=== PATIENT | male | born 1960 | race Caucasian/White ===

== ENCOUNTER → 2019-10-28 | Outpatient (CLI) | payer SELFPAY ==
--- NOTE | 2019-10-28 | TOBX_PTH ---
PATIENT: NAYA PAUL LOC: [facility] U#:[id number] AGE/SX: 58/M ROOM: RE10/28/[address]: Dr. Jose Tena DDS : 1960 BED: DIS: 10/28/2019 SPEC #: [id number] RECD: 10/28/19 10:05 STATUS: NOHEMI RETristian #: [id number] DIANNE: 10/28/19 00:[address]: Jose Tena DEPT: SURGICAL PATHOLOGY RECD BY: Viktor Lopez ENTERED: 10/28/19 13:33 SP TYPE: TONGUE BX OTHR DR: Dr. Getachew Beaulieu DO Tissues: Tongue, NOS Procedures: Surgery Specimen Level IV HEADER OPERATION: Anterior tongue biopsy PRE-OP DIAGNOSIS: Probable fibroma TISSUE SUBMITTED: Tongue biopsy MICROSCOPIC DIAGNOSIS Tongue, biopsy: Consistent with fibroma. AM:sherman 10/29/19 COMMENT Case has been reviewed in consultation with Dr. Almaraz who concurs with the above diagnosis. IDC:SJ MICROSCOPIC DESCRIPTION Slides are reviewed. GROSS DESCRIPTION Received in fixative is one container labeled with the patient's name and designated tongue. The specimen consists of one irregular fragment of light vick soft tissue that measures 0.3 x 0.3 x 0.1 cm. The specimen is totally submitted in one cassette. / AM:rg 10/28/19 TC:3 CPT: 76671
== END | disposition home or self-care (01) ==
LOC: LABSPEC 11:56
PROVIDERS: PCP Family Medicine; Visit Provider Dentist Oral and Maxillofacial Surgery
DX: K14.9 Disease of tongue, unspecified (principal)
CPT/HCPCS: 88305

== ENCOUNTER → 2019-12-10 07:25 | Outpatient (CLI) | payer SELFPAY ==
--- NOTE | 2019-12-10 07:30 | CT_ITS ---
STUDY: CT CHEST WITHOUT CONTRAST REASON FOR EXAM: Male, 58 years old. CALCIUM SCORING, HYPERLIPIDEMIA RADIATION DOSAGE (If Supplied By Facility): CTDIvol = ( 12.19 ) mGy, DLP = ( 219.42 ) mGycm TECHNIQUE: Transaxial imaging was performed without the administration of intravenous contrast material. Overread examination. Individualized dose optimization techniques were used for this CT. COMPARISON: None. FINDINGS: The lungs are normal. There is no demonstrated pleural abnormality. There are calcifications of the coronary arteries. Normal mediastinum. Normal hilar regions. Normal unenhanced pulmonary arteries. There is minimal atherosclerotic plaque at the level of the aortic arch. Normal osseous structures. Small hiatal hernia. CT/Limited Chest CT w/CCTA IMPRESSION: Coronary artery calcification. The lungs are clear.. Electronically Signed: Lee Salas, at 8:50 EDT , Service support ,
[2019-12-10 07:41] VITALS: BP 140/87; PULSE 53; RESP 14; O2SAT 99; BMI 25.7
--- NOTE | 2019-12-15 10:12 | CA.SCORE ---
Calcium Scoring Date of Study:: 12/10/19 Coronary Calcium Scoring: High-resolution Computed Tomographic imaging of the chest was performed on [ ], with particular attention paid to the coronary arteries. Images from the examination were analyzed for the presence and extent of coronary artery calcification , using coronary calcium quantification software. The patient tolerated the procedure well and there were no complications. The results of the coronary calcification analysis are provided below. - Findings Left Main (LM): 0 Left Anterior Descending (LAD): 0 Left Circumflex (LCX): 0 Right Coronary Artery (RCA): 0 Total Agatston Score: 0 Calcium Scoring Interpretation: 0 No identifiable atherosclerotic plaque. Very low cardiovascular disease risk. <5% chance of presence coronary artery disease A Negative Examination Conclusion: No identifiable atherosclerotic plaque. Very low cardiovascular disease risk. <5% chance of presence coronary artery disease
== END ==
PROVIDERS: PCP Family Medicine; Visit Provider Internal Medicine
DX: E78.5 Hyperlipidemia, unspecified (principal)
CPT/HCPCS: 75571; 76380

== ENCOUNTER → 2020-01-07 06:15 | Outpatient (CLI) | payer SELFPAY ==
[2019-12-10 07:41] VITALS: BMI 25.7
--- NOTE | 2020-01-08 15:36 | STRESSREP ---
Stress Test Report Date: 01/07/2020 Procedure: Exercise tolerance test/imaging study Indications: Chest pain Consent: Per the patient Procedure: The patient exercised on a Nahid protocol for 12 minutes and 46 seconds achieving a peak heart rate of 155 bpm (95% predicted maximal heart rate) with a peak blood pressure 180/90 mmHg and a peak MET capacity of 14.8 METs. The baseline ECG demonstrated sinus bradycardia. The peak exercise ECG demonstrated sinus tachycardia with upsloping ST depressions in the inferior and lateral leads. No significant ischemic ST-T changes. Occasional PVCs. EKG during recovery revealed no significant ischemic changes [There were no cardiac dysrhythmias pretest, during exercise, or recovery]. The functional capacity was considered excellent for age. There was [no complaint of chest discomfort during exercise or recovery]. The examination was discontinued secondary to dyspnea. Impression: 1. Technically adequate (percent predicted maximal heart rate greater than 85%) exercise tolerance test 2. Stress test is negative for exercise-induced EKG changes of ischemia 3. The test test is negative for exercise-induced chest pain 4. Functional capacity is excellent for age 5. Nuclear images pending Myocardial perfusion imaging study: Technique: The patient was injected with 14.2 mCi of technetium 99m Cardiolite and subsequently rest SPECT Cardiolite nuclear imaging was obtained in the horizontal long, vertical long, and short axis views. The patient exercised on a Nahid protocol. Please see above for details. The patient was injected with 43.9 mCi of technetium 99m Cardiolite and subsequently stress SPECT Cardiolite nuclear imaging was obtained in the horizontal long, vertical long, and short axis views. A gated Cardiolite study at peak stress was obtained. Interpretation: Rest and stress SPECT Cardiolite nuclear imaging status post realignment, normalization, and attenuation correction, demonstrates normal myocardial radioisotope uptake. The gated Cardiolite study demonstrates no significant regional wall motion abnormalities. The reported LVEF is 65%. Impression: 1. There is no evidence of significant ischemia or infarction. 2. The gated Cardiolite study reports an LVEF of 65%. This note was generated with [employer] software. It may contain incorrect words, spelling, and punctuation that were not noted in checking the note before signing.
== END ==
PROVIDERS: PCP Internal Medicine; Referring Provider Internal Medicine; Visit Provider Internal Medicine
DX: R07.9 Chest pain, unspecified (principal)
CPT/HCPCS: 78452; 93017; A9500; A4216

== ENCOUNTER 2020-05-21 18:36 | Emergency (ER) | payer OTHER, SELFPAY ==
[2020-05-21 18:37] VITALS: BP 153/73; PULSE 62; RESP 18; TEMP 36.5; O2SAT 97; BMI 28.2
--- NOTE | 2020-05-21 18:40 | EKG12_ITS ---
Test Reason : GENERAL ILLNESS Blood Pressure : / mmHG Vent. Rate : 064 BPM Atrial Rate : 064 BPM P-R Int : 238 ms QRS Dur : 086 ms QT Int : 378 ms P-R-T Axes : 047 016 042 degrees QTc Int : 389 ms Sinus rhythm with 1st degree A-V block Otherwise normal ECG Confirmed by MARI RESENDIZ, SHERI ([id number]), proposal editor ALEX PRESTON ([id number]) on 05/25/2020 7:47:44 AM Referred By: KENDAL Confirmed By:SHERI GUERRA MD
--- NOTE | 2020-05-21 18:53 | RAD_ITS ---
EXAM: XR CHEST, 1 VIEW CLINICAL INDICATION: Possible electrocution, loss of memory TECHNIQUE: Frontal view of the chest. This report was created using [employer] report generation technology. COMPARISON: None. FINDINGS: LUNGS AND PLEURAL SPACES: Unremarkable. No consolidation or edema. No pneumothorax. No effusion. HEART: Unremarkable. Cardiac silhouette not enlarged. MEDIASTINUM: Central airways and mediastinal contour are unremarkable. BONES/JOINTS: Operative changes of the right humeral head. Old left rib fractures. SOFT TISSUES: Unremarkable. VASCULATURE: Tortuosity of the thoracic aorta. RAD/Chest 1 View (Portable) IMPRESSION: No acute findings in the chest. Electronically Signed: Mannie Duarte MD (Brooks) at 19:26 EDT , Service support ,
[2020-05-21] MEDS: 0.9% Normal Saline 1,000 ML 999 ML IV (19:07)
[2020-05-21 19:16] LABS: Absolute Lymphocyte Count 0.69 X10^3/uL (0.83-4.51); Absolute Neutrophil Count 5.8 X10^3/uL (2.0-7.7); Basophil# 0.03 X10^3/uL; Basophil% 0.4 % (0-1); Eosinophil# 0.15 X10^3/uL; Hematocrit 43.9 % (40-54); Hemoglobin 14.9 g/dL (13.0-16.5); Lymphocyte # 0.69 X10^3/ul (4.0); Lymphocyte % 9.3 % (19-41); Mean Corp Hgb Conc 33.9 g/dL (32-36); Mean Corpuscular Hgb 31.2 pg (27.0-32.0); Mean Platelet Vol. 9.3 fl (6.2-12.0); Monocyte# 0.71 X10^3/uL; Monocyte% 9.6 % (0-10); NRBC Flagged by Analyzer 0 % (0-5); Neutrophil # 5.84 X10^3/uL (2.7-7.7); Neutrophil % 78.6 % (47-70); Platelet Count 158 K/mm3 (150-450); RBC Distribution Width CV 11.9 % (11.6-14.6); RBC Distribution Width SD 39.8 fl (35.1-43.9); Red Blood Count 4.77 M/mm3 (4.6-6.2); White Blood Count 7.4 K/mm3 (4.4-11.0)
--- NOTE | 2020-05-21 19:22 | ED.VIS.GEN ---
History of Present Illness Chief Complaint: General Illness Informant: Patient Onset: Today Maximum Severity: Mild Narrative: The patient presents complaining that he was basically trying to open up nonmotorized gait when he felt as if a force pushed him down to the ground he was on the ground for a few minutes he believes he may been exposed to electrical current that is part of the fence that the gait is attached to but the gait itself is not electrified he was on the ground for a few minutes, this occurred earlier in the day about 7 hours ago his found out recently and she wanted him to be seen he had no LOC no incontinence no head neck chest or abdominal pain no fever cough he has no history of NM PE or DVT he has no headache he has an area to the right wrist that is slightly contused and he wonders if this is possibly the contact point with some type of electrical current Past Medical History - Allergies and Home Meds Allergies/Adverse Reactions: Allergies No Known Allergies Allergy (Verified 05/21/20 18:40) Primary Care Physician: Monique Shearer MD [Primary Care Provider] - Past Medical History: None Smoking Status: Never smoker Review of Systems General: Denies: Chills, Fever, Sweats Eyes: Denies: Visual changes - bilaterally, Diplopia ENT: Denies: Rhinorrhea, Sore throat Cardiovascular: Denies: Chest pain, Palpitations Respiratory: Denies: Dyspnea, Cough, Dyspnea on exertion Gastrointestinal: Denies: Abdominal pain, Nausea, Vomiting, Diarrhea, Melena, Hematochezia Genitourinary: Denies: Dysuria, Hematuria, Frequency Musculoskeletal: Denies: Back pain, Extremity Pain Skin: Denies: Rash, Wounds Neurological: Denies: Headache, Weakness, Numbness Physical Exam Vital Signs/Narrative: Vital Signs Temp Pulse Resp BP Pulse Ox 05/21/20 18:37 97.7 F L 62 18 153/73 H 97 General: Well nourished, Well developed, No Acute Distress Head: Normocephalic, Atraumatic Eyes: Perrl, EOMI ENT: Moist mucous membranes, No rhinorrhea Neck: Supple, Nontender Cardiovascular: Regular rate, Regular rhythm, No murmurs Respiratory: No distress, CTA bilaterally, Chest nontender Abdomen: Soft, Nontender, Nondistended, Normal bowel sounds Back: Nontender, Normal Inspection Extremities: Nontender, No edema Skin: Normal color, No rash Neurological: Alert, Oriented x3, Cranial nerves II-XII grossly intact, Normal Strength, Normal Sensation Psychological: Normal affect, Normal Mood Diagnostic/Tx/Re-eval - Medical Decision Making The patient's physical exam and neurologic exam unremarkable NIH 0 his EKG shows a sinus rhythm rate 64 no acute injury patterns appreciated given his complaints ED screening evaluation ED screening evaluation generally unremarkable his CPKs about 400 all of his other studies including chest x-ray head CT negative he is received IV fluids here I had a long conversation with him I explained to him that the exact etiology of this force that pushed him to the ground is remains unclear it certainly could be related to electrical exposure but there is no signs of any life-threatening causes relationship or outcome from that exposure. We discussed inpatient versus outpatient management he was stayed in the emergency room on the monitor for extended period time with no symptoms he insists he feels fine he understands the concept of an occult life-threatening condition contributing to this syndrome does not wish to be admitted as tomorrow is Easter he will follow-up with his outpatient providers and he will double check the electrical issues on his property and the gait Home stable Impression final possible electrical exposure electrocution, possible syncope ED Disposition - Plan for ED Patient: Diagnosis: Syncope, Injury due to electrical exposure Instructions: ED Electrical Injury, ED Fainting, Uncertain Cause Referrals: Monique Shearer MD [Primary Care Provider] -
[2020-05-21 19:41] LABS: Anion Gap 5 (5-15); BUN 27 mg/dL (7-18); Calcium,Total 8.7 mg/dL (8.5-10.1); Chloride 107 mmol/L (98-107); Creatinine, Serum 1.23 mg/dL (0.70-1.30); EST Glomerular Filtration Rate 64 mL/min (>60); Est Glom Filt Rate - Afr Amer 78 mL/min (>60); Estimated Creatinine Clearance 73.98 ml/min; Glucose 71 mg/dL (74-106); Potassium 3.7 mmol/L (3.5-5.1); Sodium Level 140 mmol/L (136-145)
--- NOTE | 2020-05-21 19:43 | CT_ITS ---
STUDY: CT BRAIN WITHOUT CONTRAST REASON FOR EXAM: Male, 59 years old. Syncope possibly exposed to electric shock RADIATION DOSAGE (If Supplied By Facility): CTDIvol = ( 44.99 ) mGy, DLP = ( 829.85 ) mGycm TECHNIQUE: Transaxial CT imaging of the brain was performed without administration of intravenous contrast material. Individualized dose optimization techniques were used for this CT. COMPARISON: No relevant priors. FINDINGS: Normal soft tissue structures. Normal calvarium. Normal size ventricles and extra-axial spaces for the patient''s age. Normal white matter tracts of the cerebral hemispheres. Normal basal ganglia and thalami. Normal brainstem. Normal cerebellum. There is no intracranial hemorrhage. There are no findings of an acute ischemic infarction. Mild mucosal thickening of the left sphenoid sinus CT/Brain/Head without Contrast IMPRESSION: Normal unenhanced CT scan of the brain. Mild left sphenoid sinus disease likely chronic Electronically Signed: Giorgi Paredes MD at 20:54 EDT , Service support ,
[2020-05-21 19:45] LABS: BNP,B-Type NATRIURETIC PEPTIDE 36.1 pg/mL (0-100)
[2020-05-21 19:47] LABS: CPK Total, Creatine Kinase 394 U/L (39-308)
[2020-05-21 20:31] LABS: Bacteria 0 SEEN /hpf (None Seen); Mucous, Urine 0 SEEN /hpf (<or=2+); Red Blood Cells-Urine 0 SEEN /hpf (0-5); Squamous Epithelial Cells - UA 0 SEEN /hpf (0-5)
[2020-05-21 20:37] VITALS: BP 126/82; PULSE 53; RESP 18; O2SAT 98
[2020-05-21 20:49] LABS: Color, Urine Yellow (Yellow); Glucose, Dipstick Normal (Normal); Ketone-Dipstick 50 mg/dl (Negative); Leukocyte Esterase-Dipstick Negative /ul (Negative); Nitrite-Dipstick Negative (Negative); Occult Blood-Urine Negative /ul (Negative); Protein-Dipstick Negative (Negative); Urine Bilirubin Dipstick Negative (Negative); Urine Clarity Clear (Clear); Urine Urobilinogen Normal (Normal); Urine pH 6.5 (5.0 - 8.0)
[2020-05-21 21:28] LABS: White Blood Cells 0-5 SEEN /hpf (0-5)
== END 2020-05-21 21:29 | disposition home or self-care (01) ==
LOC: ED 19:14
PROVIDERS: Emergency Provider Emergency Medicine; PCP Internal Medicine
DX: R55 Syncope and collapse (principal); S60.211A Contusion of right wrist, initial encounter; W86.8XXA Exposure to other electric current, initial encounter; Y93.9 Activity, unspecified; Y92.9 Unspecified place or not applicable
CPT/HCPCS: 70450; 71045; 80048; 81001; 82550; 83880; 84484; 85025; 93005; 96360; 96361; 99284; J7030; A4216

== ENCOUNTER → 2022-06-04 | Outpatient (CLI) | payer SELFPAY ==
--- NOTE | 2022-06-04 09:19 | EKG12_ITS ---
Test Reason : PRE-OP Blood Pressure : / mmHG Vent. Rate : 051 BPM Atrial Rate : 051 BPM P-R Int : 260 ms QRS Dur : 078 ms QT Int : 398 ms P-R-T Axes : 047 015 038 degrees QTc Int : 366 ms Sinus bradycardia with 1st degree A-V block Otherwise normal ECG Confirmed by BRADEN THAYER ([id number]), tape editor VIKTORIA JONES ([id number]) on 06/05/2022 7:07:15 AM Referred By: JANA Confirmed By:BRADEN THAYER
[2022-06-04 09:54] LABS: Absolute Lymphocyte Count 0.55 X10^3/uL (0.83-4.51); Absolute Neutrophil Count 2.9 X10^3/uL (2.0-7.7); Basophil# 0.03 X10^3/uL; Basophil% 0.8 % (0-1); Eosinophil# 0.08 X10^3/uL; Hematocrit 43.5 % (40-54); Hemoglobin 14.9 g/dL (13.0-16.5); Lymphocyte # 0.55 X10^3/ul (0.83-4.51); Lymphocyte % 13.9 % (19-41); Mean Corp Hgb Conc 34.3 g/dL (32-36); Mean Corpuscular Hgb 31.6 pg (27.0-32.0); Mean Corpuscular Volume 92.4 fL (80-94); Mean Platelet Vol. 9.3 fl (6.2-12.0); Monocyte% 10.1 % (0-10); NRBC Flagged by Analyzer 0 % (0-5); Neutrophil % 72.9 % (47-70); POSITIVE DIFFERENTIAL YES; Platelet Count 199 K/mm3 (150-450); RBC Distribution Width CV 11.9 % (11.6-14.6); RBC Distribution Width SD 40.7 fl (35.1-43.9); Red Blood Count 4.71 M/mm3 (4.6-6.2)
[2022-06-04 10:04] LABS: Differential Indicated SCAN CRITERIA MET
[2022-06-04 10:12] LABS: Albumin, Serum 3.9 g/dL (3.2-5.0); Anion Gap 4 (5-15); BUN 22 mg/dL (7-18); BUN/Creat Ratio 21.6 RATIO (10-20); Chloride 106 mmol/L (98-107); Creatinine, Serum 1.02 mg/dL (0.70-1.30); EST Glomerular Filtration Rate 79 mL/min (>60); Est Glom Filt Rate - Afr Amer 96 mL/min (>60); Glucose 101 mg/dL (74-106); Potassium 3.9 mmol/L (3.5-5.1); Sodium Level 140 mmol/L (136-145)
[2022-06-04 10:51] LABS: Differential Comment SCANNED
[2022-06-07 09:40] LABS: Pathologist Review Reviewed
== END | disposition home or self-care (01) ==
PROVIDERS: PCP Internal Medicine; Visit Provider Specialist
DX: Z01.810 Encounter for preprocedural cardiovascular examination (principal); M16.12 Unilateral primary osteoarthritis, left hip; M25.652 Stiffness of left hip, not elsewhere classified
CPT/HCPCS: 36415; 80048; 82040; 85025; 93005

== ENCOUNTER 2023-12-10 10:30 | Outpatient (RCR) | payer SELFPAY ==
--- NOTE | 2023-11-12 11:35 | HP.PTEVAL ---
Patient's Visit Information Visit Information Visit Information: NAYA PAUL is a 62 year old M referred to Physical Therapy by Deena Albert PA-C with a diagnosis of L3 Hemilaminectomy, L4-L5 laminectomy and fusion. DOS: 10/15/23. Date of Evaluation: 11/12/23 Physical Therapist: Dequan Romo DPT Visit Plan Frequency: 2-3x /Week Duration: 6 Weeks Plan: Check superior aspect of incision. Pt. was to follow back up with physician about it. 1) HS and hip flexor stretching, with out nerve irritation. 2) work on getting posture to fully upright. 3) progressive walking program 4) LE strengthening, neutral spine core stability. May use ice for pain control. Once incision is fully closed you can add in IASTIM to lumbar erector spinae and paraspinals. Subjective Subjective: Pt. is here today for his initial evaluation with diagnosis of L3 Hemilaminectomy, L4-L5 laminectomy and fusion. DOS: 10/15/23. Pt. reports prior to surgery he was having a lot pain and was barely able to walk secondary to his pain. He is doing much better, but is still having some issues. He is still having some trouble sleeping. No N/T in his LE, but still gets some pain in his R anterior hip with increased trunk extension. 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 He did try and go in a little bit. He reports increased ability to stand more upright and walk more over the past few days. Pt. is hopeful to reduce symptoms and get back to all work and recreational activities without limitations. Pain Lumbar spine: Pain Intensity (Out of 10): 3 Pain Intensity Range: 1 and 5 Objective Objective: POSTURE: Pt. has flexed posture in stance. Pt. increased without AD. He is able to improve with VCing, but does have increased pain prior to getting full upright posture. PALPATION: Pt. has healing incision. His bandage has been removed. Lower incision looks great. At his superior part of his incision he has an area that is raised, red. This area has me a bit concerned. I would like him to have his surgeon to take a look at this. I too a picture of it on his phone to send to him. NEURO: Pt. has normal sensation and DTR of bLEs. Pt. is able to rise on heels and toes without issues. ROM: LUMBAR SPINE: flexion mod loss increase NW, ext max loss increase NW, SB mod loss bilat increase NW, rotation max loss bilat increase NW. Tight HS and hip flexors bilaterally. MMT: PT. has good strength throuhgout BLEs. no myotomal weakness noted. GAIT: PT. ambulates with FWW with flexed posture. Pt. reports increased pain with increased erect posture. Balance/Special Test Scores Oswestry Low Back Score: 30 Goals Goal 1:: LTG: Pt. to be I with HEP. Goal Time Frame: 6-8 Weeks Goal 2:: STG: Pt. to sleep throughout the night without increase in low back pain. Goal Time Frame: 2-4 Weeks Goal 3:: STG: Pt. to be able to stand with good upright posture without increase in lumbar spine and R LE pain. Goal Time Frame: 2-4 Weeks Goal 4:: LTG: Pt. to ambulate with good gait pattern with use of FWW without increase in lumbar spine or RLE pain. Goal Time Frame: 4-6 Weeks Goal 5:: LTG: Pt. to have good core stability allowing for decreased pain with all functional mobility. Goal Time Frame: 4-6 Weeks Rehabilitation Potential Physical Therapy Diagnosis: Pt. has signs and symptoms consistent with L3 Hemilaminectomy, L4-L5 laminectomy and fusion. DOS: 10/15/23. Pt. has marked decreased ROM, increased pain, difficulty with walking and decreased activity. He would benefit from PT to address the above limitations progressing back to all work and recreational activities without issues. Rehabilitation Potential: Good Anticipated Interventions Patient/Client Instruction: Educate patient on: Condition, Plan of Care, Risk Factors and Benefits of Fitness Program For the Purpose of:: To improve health and function, To foster healthy habits, To improve decision making, To facilitate caregiver knowledge, To improve self management, To prevent re-injury and To improve ability to perform tasks related to life management Therapeutic Exercise to Include: Strength training, Power training, Balance training, Coordination, Body mechanics, Postural training, Flexibilty training, Gait and locomotor training, Active ROM, Dynamic Lumbar Stabilization and Osvaldo Exercises For the Purpose of:: To decrease pain, To increase ROM, To improve nutrient delivery to tissue, To increase oxygenation perfusion, To improve muscle performance and motor function, To improve ability to perform ADL's, To increase tolerance to activity/condition/position, To improve gait and locomotor functions, To improve health of tissue and To decrease soft tissue restriction Manual Therapy Techniques to Include: Soft tissue mobilization Comment: IASTIM For the Purpose of:: To decrease pain, To increase ROM, To improve nutrient delivery to tissue, To improve muscle performance and motor function, To improve health of tissue and To decrease soft tissue restriction Cryotherapy (ice pack, ice massage): Yes For the Purpose of:: To decrease pain, To decrease swelling/inflammation and To increase ROM Text: Thank you for the opportunity to evaluate your patient. For Medicare and Medicare HMO plans, please review the plan of care and approve it. It will need to be FAXED BACK to us at [phone] for Medicare purposes. For Medicare only, by signing this I certify the plan of care. Please let me know if there are questions or concerns regarding this plan of care. Physician Signature: Date:
== END 2023-12-10 19:00 | disposition home or self-care (01) ==
LOC: PT 10:30
PROVIDERS: PCP Internal Medicine; Referring Provider Physician Assistant; Visit Provider Physician Assistant
DX: Z98.1 Arthrodesis status (principal)
CPT/HCPCS: 97014; 97110; 97140; 97161; G0283

== ENCOUNTER 2024-03-26 07:00 | Outpatient (RCR) | payer SELFPAY ==
--- NOTE | 2024-03-05 08:58 | HP.PTEVAL ---
Patient's Visit Information Visit Information Visit Information: NAYA PAUL is a 63 year old M referred to Physical Therapy by Dr. Monique Shearer MD with a diagnosis of R buttock pain, L2/L3 radiculopathy. Date of Evaluation: 02/28/24 Physical Therapist: Dequan Romo DPT Visit Plan Frequency: 1x/Week Duration: 6 Weeks Plan: 1) Neutral spine core stability, progressing to dynamic strengthening 2) slowly progress lumbar ROM Subjective Subjective: Pt. is here today for his initial evaluation with diagnosis of R buttock pain, L2/L3 radiculopathy. Pt. has had multiple back surgeries over the past 6 months. He initially had a L4/L5 fusion, but more recently ~6 weeks ago had a L3/L4 discectomy. Pt. reports overall doing much better since his last surgery. He is able to stand up much better, he is however still having increased pain with getting up/down from seated positions. Once standing he reports doing well. He reports symptoms spike to 8/10 with getting up. He reports no N/T in either LE. 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 He reports trying to chop some wood, but was sore and therefor held off. Pt. reports no BLE weakness. Pt. is able to bend over without much issues now. Pt. is sleeping better, still sore with getting up/down out of bed. Pt. is back to work, desk like jobs with good tolerance. Pt. is hopeful to reduce his symptoms with getting up/down to allow for improved quality of life. Pain R sided glute: Pain Intensity (Out of 10): 2 Pain Intensity Range: 0 and 8 Objective Objective: POSTURE: Pt. is able to stand with close to full upright posture. pt. has normal lumbar spine positioning and normal iliac crest heights. PALPAITON: Pt. has slight tenderness along lumbar erector spinae. Pt. has no pain with palpation of distal LEs. NEURO: Pt. has normal sensation in BLEs. Pt. has normal DTR of BLEs. Pt. is able to rise on heels and toes without issues. ROM: LUMBAR SPINE: flexion min loss NE, ext mod loss mild increase NW, SB min loss NE bilat, rotation min/mod loss mild increase NW bilat. Pt. has tightness in B HS as well. Normal B hip ROM noted without increase in symptoms. MMT: LEs: 5/5 throughout distal BLEs, no myotomal weakness noted. B hip: 4+/5 without increase in symptoms. Core strength: poor. GAIT: Pt. has decreased B arm swing, Pt. has slight flexed posture with gait, but not as much as previously. STAIRS: reciprocal pattern with use of 1 HR. NO increase in symptoms. Balance/Special Test Scores Oswestry Low Back Score: 9 Goals Goal 1:: LTG: Pt. to be I with HEP. Goal Time Frame: 4-6 Weeks Goal 2:: LTG: Pt. to have increased lumbar ROM to full without increase in symptoms. Goal Time Frame: 4-6 Weeks Goal 3:: LTG: Pt. to have 5/5 B hip and fair+ core strength. Goal Time Frame: 4-6 Weeks Goal 4:: LTG: Pt. to have no pain with rising from seated positions. Goal Time Frame: 4-6 Weeks Goal 5:: LTG: pt. to be able to complete all ADLs and work activities without increase in symptoms. Goal Time Frame: 4-6 Weeks Rehabilitation Potential Physical Therapy Diagnosis: Pt. has signs and symptoms consistent with R buttock pain, L2/L3 radiculopathy. Pt. has marked lumbar hypomobility, weakness in core and hips and increased pain with his R hip and groin region. Pt would benefit from PT to reduce his symptoms and increase in core strength in order to get back to all work and recreational activities without limitations. Rehabilitation Potential: Good Anticipated Interventions Patient/Client Instruction: Educate patient on: Condition, Plan of Care, Risk Factors and Benefits of Fitness Program For the Purpose of:: To improve decision making, To facilitate caregiver knowledge, To improve self management, To prevent re-injury and To improve ability to perform tasks related to life management Therapeutic Exercise to Include: Strength training, Power training, Coordination, Postural training, Flexibilty training, Passive ROM, Active ROM, Dynamic Lumbar Stabilization and Osvaldo Exercises For the Purpose of:: To decrease pain, To increase ROM, To improve nutrient delivery to tissue, To increase oxygenation perfusion, To improve muscle performance and motor function, To improve ability to perform ADL's, To improve health of tissue and To decrease soft tissue restriction Text: Thank you for the opportunity to evaluate your patient. For Medicare and Medicare HMO plans, please review the plan of care and approve it. It will need to be FAXED BACK to us at [phone] for Medicare purposes. For Medicare only, by signing this I certify the plan of care. Please let me know if there are questions or concerns regarding this plan of care. Physician Signature: Date:
== END 2024-03-26 19:00 | disposition home or self-care (01) ==
LOC: PT 07:00
PROVIDERS: PCP Internal Medicine; Referring Provider Internal Medicine; Visit Provider Internal Medicine
DX: M54.16 Radiculopathy, lumbar region (principal)
CPT/HCPCS: 97110

== ENCOUNTER → 2024-05-06 | Outpatient (CLI) | payer SELFPAY ==
--- NOTE | 2024-05-06 12:25 | RAD_ITS ---
PROCEDURE: LUMBAR MYELOGRAM 05/06/2024 REASON FOR EXAM: POST OP Persistent low back pain. TECHNIQUE: The procedure as well as the benefits and possible complications including infection, bleeding and headaches were explained to the patient. Informed consent was obtained. The patient was in the prone position. Following local anesthetic application, a lumbar puncture was performed at the L3-L4 level. Free flowing CSF was noted. Following this, 10 cc of Isovue M 200 was injected intrathecally. Imaging was provided. COMPARISON: None FINDINGS: The patient is status post laminectomy at the L4-L5 and L5-S1 level with fusion at the L4-L5 level on the left side utilizing intrapedicular screw fixation and bharathi fixation device. There is evidence of degenerative disc disease and narrowing at the L1-L2 and L2-L3 levels. No evidence of spinal stenosis on this examination. Minimal anterior extradural defect at the L3-L4 level most likely secondary to a central disc bulge. RAD/Lumbar Myelogram IMPRESSION: Successful lumbar puncture as described. The patient tolerated the procedure w ell with no immediate complication. A CT scan will follow. Reading Location: [place] [id number]
[2024-05-06 12:50] LABS: Absolute Lymphocyte Count 0.69 X10^3/uL (0.83-4.51); Absolute Neutrophil Count 3.5 X10^3/uL (2.0-7.7); Basophil# 0.02 X10^3/uL; Basophil% 0.4 % (0-1); Eosinophil# 0.13 X10^3/uL; Eosinophils% 2.8 % (0-5); Hematocrit 43.3 % (40-54); Hemoglobin 15.4 g/dL (13.0-16.5); Lymphocyte # 0.69 X10^3/ul (0.83-4.51); Lymphocyte % 14.6 % (19-41); Mean Corp Hgb Conc 35.6 g/dL (32-36); Mean Corpuscular Hgb 31.2 pg (27.0-32.0); Mean Corpuscular Volume 87.8 fL (80-94); Mean Platelet Vol. 9.2 fl (6.2-12.0); Monocyte# 0.39 X10^3/uL; Monocyte% 8.3 % (0-10); NRBC Flagged by Analyzer 0 % (0-5); Neutrophil # 3.48 X10^3/uL (2.7-7.7); Neutrophil % 73.7 % (47-70); Platelet Count 215 K/mm3 (150-450); RBC Distribution Width CV 12.8 % (11.6-14.6); RBC Distribution Width SD 41.2 fl (35.1-43.9); Red Blood Count 4.93 M/mm3 (4.6-6.2); White Blood Count 4.7 K/mm3 (4.4-11.0)
[2024-05-06 12:57] VITALS: BP 173/88; PULSE 49; RESP 18; O2SAT 100; BMI 26.4
[2024-05-06 13:02] LABS: Prothrombin Time (Protime)PT. 13.6 SECONDS (11.7-14.9)
[2024-05-06 13:06] LABS: Partial Thromboplast Time 27.2 Seconds (24.1-36.2)
[2024-05-06] MEDS: Lidocaine 2% (5ml sdv) 5 ML VIAL.MPF INFILT (13:34)
[2024-05-06 13:50] VITALS: BP 169/89; PULSE 51; RESP 18; O2SAT 99
--- NOTE | 2024-05-06 14:15 | CT_ITS ---
PROCEDURE: SPINE LUMBAR WITH intrathecal CONTRAST REASON FOR EXAM: POST OP Chronic pain following laminectomy and fusion.. TECHNIQUE: Lumbar spine CT with contrast. CONTRAST: Isovue M 200 VOLUME: 10mL. Intrathecal administration. One or more dose reduction techniques were used (e.g., Automated exposure control, adjustment of the mA and/or kV according to patient size, use of iterative reconstruction technique). RADIATION DOSE SUMMARY: CTDlvol: 21.14 mGy DLP: 711.42 mGycm COMPARISON: Comparison is made with prior lumbar myelogram done earlier in the day. FINDINGS: Vertebrae: Multilevel spondylosis. Alignment: Minimal anterior listhesis of L4 on L5. L1-2: Moderate degree of disc space narrowing and disc degeneration. Spondylosis. Minimal central stenosis due to hypertrophy of the facet joints. L2-3: Mild degree of disc space narrowing. Facet joint osteoarthritis and hypertrophy. Mild bilateral neural foraminal stenosis and central canal stenosis due to hypertrophy of the ligamentum flava. L3-4: Mild degree of disc space narrowing. Facet joint osteoarthritis and hypertrophy with bilateral neural foraminal stenosis more prominent on the left side. There is evidence of left intrapedicular screw fixation. L4-5: Minimal anterior listhesis of L4 on L5. Status post laminectomy and intrapedicular screw fixation in the left facet joint. No evidence of spinal stenosis. L5-S1: Mild degree of disc space narrowing. No significant abnormality is seen. Sacrum: Unremarkable. CT/Spine Lumbar WITH Contrast IMPRESSION: Status post laminectomy and left intrapedicular screw fixation at the L3-L4 and L4-L5 levels. Minimal anterior listhesis of L4 on L5. Mild bilateral neural foraminal stenosis at multiple levels. Mild central canal stenosis at the L1-L2 level. Reading Location: [facility]
[2024-05-06 14:25] VITALS: BP 166/73; PULSE 54; RESP 18; O2SAT 98
== END | disposition home or self-care (01) ==
LOC: RAD 12:22
PROVIDERS: PCP Internal Medicine; Referring Provider Orthopaedic Surgery Orthopaedic Surgery of the Spine; Visit Provider Orthopaedic Surgery Orthopaedic Surgery of the Spine
DX: Z01.812 Encounter for preprocedural laboratory examination (principal); Z98.890 Other specified postprocedural states
CPT/HCPCS: 36415; 62304; 72132; 85025; 85610; 85730; Q9967

== ENCOUNTER 2025-01-30 07:08 | Emergency (ER) | payer SELFPAY ==
[2025-01-30 07:09] VITALS: BP 139/73; PULSE 59; RESP 18; TEMP 36.7; O2SAT 100; BMI 25.0
--- NOTE | 2025-01-30 07:10 | EDS_ITS ---
HPI History of Present Illness Chief Complaint: Flank Pain PFSH PFSH Medical History History of rib fracture History of left foot fracture History of left arm fracture History of pneumonia History of skin cancer High cholesterol History of kidney stones History of carpal tunnel syndrome Home Medications ?Medication ?Instructions ?Recorded ?Last Taken ?Type meloxicam 7.5 mg tablet 7.5 mg PO BID 05/06/24 Unkno wn History Allergy/AdvReac Type Severity Reaction Status Date / Time No Known Allergies Allergy Verified 01/30/25 07:11 Family History Mother Cancer Grandmother Cancer Father Heart disease Grandfather Heart disease Parkinson disease Surgical History History of rotator cuff surgery history of left and right epicondyle surgery History of repair of anterior cruciate ligament of left knee History of carpal tunnel release Social History Smoking Status: Never smoker alcohol intake: current alcohol intake frequency: a few times a month Alcohol type: beer and wine substance use type: does not use what type of physical activity do you participate in: weight training and other details: Cardio frequency: 3-4 times per week EXAM Physical Exam Const Vital Signs: 01/30/25 07:09 Temperature 98.1 F Temperature Source Oral Pulse Rate 59 L Respiratory Rate 18 Blood Pressure 139/73 H Blood Pressure Mean 95 Pulse Ox 100 Oxygen Delivery Method Room Air MDM MDM MDM Narrative Medical decision making narrative: HISTORY OF PRESENT ILLNESS: Chief complaint: flank pain 64 M here with flank pain. Notes hx of kidney stones. Endorses hx of back surgery. States pain began overnight. Even though the triage note says right side he mitts left-sided to me. Has reduced his bellybutton. Notes consistent with prior kidney stones. He denies vomiting or fever. Denies dysuria or urgency. Denies any trauma. Denies numbness weakness or loss sensation in the arms or legs. Notes chronic back pain REVIEW OF SYSTEMS: Pertinent positives: flank pain, back pain Pertinent negatives: Urinary complaints, neurologic complaints PHYSICAL EXAM: Nursing triage notes reviewed, Vital signs reviewed Constitutional: please see mdm HENT: MMM Eyes: Pupils equal round and reactive to light, Extraocular muscles intact Neck: No stridor, no JVD, full neck ROM Lungs: Clear to auscultation, No wheezing or rales. No increased work of art athing, no conversational dyspnea, no accessory muscle use, no nasal flaring. No respiratory distress noted Heart: Regular rate and rhythm, No murmurs, No rubs and No gallops, 2+ distal pulses (radial, femoral, posterior tibial) in all extremities Abdomen: Soft, there is no tenderness, rigidity, rebound or guarding, no obvious peritoneal signs, no palpable pulsatile abdominal masses, no auscultated abdominal bruit : Positive left CVA TTP Extremities: No edema Neuro: No new focal neurological deficits, cranial nerves II through XII intact, 5/5 strength in all present extremities. Intact sensation to light touch in all present extremities, 2+ reflexes bilateral patella tendons. Skin: No rash or lesions noted MEDICAL DECISION MAKING: Chief Complaint: please see HPI External records reviewed: Reviewed prior CT of lumbar spine Factors affecting care: Nephrolithiasis, status post laminectomy Social determinants of health: none History obtained from others: none Consults: none [facility] Narrative: The patient was initially hemodynamically stable, afebrile and nontoxic- appearing. Exam left CVA tenderness. I considered the following differential diagnosis: Nephrolithiasis, p yelonephritis, AAA, musculoskeletal back pain I obtained broad lab and imaging workup to further determine if the patient was suffering from a life-threatening etiology. Initially treat the patient's pain with 15 mg IV Toradol, treated nausea 4 milligrams IV Zofran and treated dehydration with 1 L normal saline. ALL IMAGES (IF OBTAINED) HAVE BEEN PERSONALLY REVIEWED AND INTERPRETED BY MYSELF. CBC without leukocytosis, severe anemia, no thrombocytopenia. CMP without evidence of acute kidney injury, significant electrolyte abnormality, anion gap to suggest end organ hypo-perfusion, no evidence of metabolic acidosis with a normal bicarbonate, no evidence of hepatobiliary obstructive pathology. Urinalysis consistent with likely UTI CT scan of the abdomen pelvis shows a 6.5 mm [id number] Shared decision making discussions undertaken with the patient. Given relatively large size, proximal location and signs of infection I was concerned that he could have a high risk for poor outcome, sepsis or non passage of stone. We do not have urology on-call at this time [facility] so I offered transfer. Patient was alert and orient x 3 in the presence of his noted he would not like to be transferred at this time and wanted to try to pass a stone at home on his own. I offered narcotic pain medication however the patient stated he did not want to take narcotic pain medication and preferred to take anti-inflammatories. Discussed trying Suzetrigine for acute pain control and lieu of narcotics. Discussed tricked return precaution The patient and/or family, caregivers express understanding. The patient and/or family, caregivers agrees with the plan. Shared decision making: I will have a discussion with the patient and or visitors regarding risk/be nefits of further testing or admission. They will be made aware of of the risk/benefits inherent in this decision they will be given the opportunity to voice understanding. Total critical care time today provided was at least 0 minutes. This excludes separately billable procedures. Critical care time (if documented) is secondary to the patient having high probability of clinically significant/life threatening deterioration in the patient's condition which required my urgent intervention. Impression: 1. Acute flank pain 2. Nephrolithiasis 3. UTI Dispo: Discharge This note was generated with [employer] dictation software. It may contain incorrect words, spelling, and punctuation that were not noted in review of the chart prior to signing. Lab Data Labs: Laboratory Results - last 24 hr 01/30/25 07:30 WBC 5.5 RBC 5.40 Hgb 16.3 Hct 46.4 MCV 85.9 MCH 30.2 MCHC 35.1 RDW Std Deviation 37.1 RDW Coeff of Giuliana 11.9 Plt Count 220 MPV 10.0 Immature Gran % (Auto) 0.400 Neut % (Auto) 68.7 Lymph % (Auto) 18.8 L Frontier % (Auto) 10.6 H Eos % (Auto) 1.1 Baso % (Auto) 0.4 Absolute Neuts (auto) 3.8 Absolute Lymphs (auto) 1.04 Nucleated RBC % 0 Sodium 140 Potassium 3.3 Chloride 103 Carbon Dioxide 22.8 Anion Gap 14 BUN 17 Creatinine 0.99 Estim Creat Clear Calc 86.31 Est GFR (MDRD) Non-Af 86 BUN/Creatinine Ratio 17.5 Glucose 138 H Calcium 9.7 Urine Color Princess Urine Clarity Cloudy Urine pH 5.0 Ur Specific [place] 1.025 Urine Protein 100 H Urine Glucose (UA) Normal Urine Ketones Negative Urine Occult Blood 250 H Urine Nitrite Positive H Urine Bilirubin Negative Urine Urobilinogen Normal Ur Leukocyte Esterase 25 H Urine RBC > 100 SEEN Urine WBC 5-10 SEEN Ur Squamous Epith Cells 0 SEEN Urine Bacteria RARE Urine Mucus 1+ Radiography Diagnostic Testing: Clinical Impression(s) from Imaging Studies Abdomen/Pelvis CT 01/30/25 07:40 IMPRESSION: 1. Obstructing left ureterolithiasis with a 6.5 mm proximal ureteral calculus. 2. Sigmoid diverticulosis. Reading Location: [id number] Discharge Plan Triage Chief Complaint: Flank Pain ED Provider: Wilver Joel Dx/Rx/DC Orders Prescriptions: No Action meloxicam 7.5 mg tablet 7.5 mg PO BID Primary Care Provider: Monique Shearer Referrals: Monique Shearer MD [Primary Care Provider, Internal Medicine] Print Language: Korean
--- NOTE | 2025-01-30 07:40 | CT_ITS ---
PROCEDURE: ABDOMEN/PELVIS WITHOUT CONT 01/30/2025 REASON FOR EXAM: LEFT LEG PAIN RULE OUT NEPHROLITHIASIS TECHNIQUE: Procedure Code: CTABDPEL Modality: CT Procedure: ABDOMEN/PELVIS WITHOUT CONT Noncontrast technique limits evaluation of the abdominal and pelvic viscera. Coronal and Sagittal reconstruction series were provided. One or more dose reduction techniques were used (e.g., Automated exposure control, adjustment of the mA and/or kV according to patient size, use of iterative reconstruction technique). RADIATION DOSE SUMMARY: CTDlvol: 6.79 mGy DLP: 383.6 mGycm COMPARISON: 06 May 2024 FINDINGS: Lung bases: Bilateral dependent atelectasis. Calcified coronary artery atherosclerotic vascular disease. The liver, gallbladder, right kidney, adrenals, spleen, and pancreas are normal. The proximal left ureter contains a 6.5 mm calculus near the ureterovesicular junction with mild hydronephrosis and faint perinephric stranding. Bladder: The bladder is nondistended and not fully characterized. Bowel: Mild colonic stool burden with a few sigmoid colonic diverticula. No bowel obstruction. Appendix: Normal appendix. Lymph nodes: No abdominopelvic or retroperitoneal lymphadenopathy. Vasculature: Scattered aortic atherosclerotic vascular calcifications without aneurysmal dilatation. Peritoneum / Retroperitoneum: No ascites. Bones: Unilateral spinal fixation from L3-L5. L1-2, L4-5, and posterior L5-S1 disc space narrowing. The soft tissues are within normal limits. CT/Abdomen/Pelvis without Cont IMPRESSION: 1. Obstructing left ureterolithiasis with a 6.5 mm proximal ureteral calculus. 2. Sigmoid diverticulosis. Reading Location: [id number]
[2025-01-30] MEDS: 0.9% Normal Saline (1000mL) 1,000 ML 1000 ML IV (07:46)
--- OUTSIDE RECORDS SUMMARY | 2025-01-30 07:53 | XMS RPT_ITS | CCD ---
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 (722.52) Unclassified (20 sources) BMI 27.0-27.9,adult Unclassified (20 sources) Tongue sore Unclassified (20 sources) BMI 26.0-26.9,adult Unclassified (20 sources) Influenza vaccination declined; Translations: [Influenza vaccine refused] 11-19-2019 Unclassified (20 sources) Non-smoker; Translations: [Non-smoker] 11-19-2019 Unclassified (20 sources) Encounter for well adult exam with abnormal findings (Renamed from Encounter for general adult medical examination with abnormal findings) Unclassified (20 sources) Family history of heart disease Unclassified (20 sources) Degenerative disc disease, lumbar Unclassified (1 source) Screening for colon cancer Unclassified (20 sources) Screening status; Translations: [Encounter for screening for malignant neoplasm of colon (Renamed from Special screening for malignant neoplasms, colon)] Resolved: 11-19-2019 11-19-2019 Unclassified (20 sources) Need for zoster vaccination (Renamed from Need for shingles vaccine) Unclassified (20 sources) Left nephrolithiasis Unclassified (20 sources) Stress reaction (Renamed from Acute reaction to stress) Unclassified (20 sources) Palpitation Unclassified (20 sources) Coronary artery disease, non-occlusive Unclassified (4 sources) Elevated ferritin Unclassified (1 source) Other intervertebral disc degeneration, lumbar region without mention of lumbar back pain or lower extremity pain; Translations: [Other intervertebral disc degeneration, lumbar region without mention of lumbar back pain or lower extremity pain] Onset: 09-07-2024 Past or Other Problems Problem Classification Problem Date Documented Da te Episodic/Chronic Abdominal pain (2 sources) Abdominal pain; Translations: [Generalized abdominal pain] Onset: 11-05-2007 01-01-2015 Episodic Coronary atherosclerosis and other heart disease (10 sources) Coronary atherosclerosis and other heart disease Gastrointestinal hemorrhage (1 source) Hemorrhage of rectum and anus; Translations: [Hemorrhage of anus and rectum] Onset: 11-05-2007 11-05-2007 Episodic Other acquired deformities (2 sources) Lumbar spondylolisthesis; Translations: [Spondylolisthesis, lumbar region] Onset: 09-23-2023 09-23-2023 Episodic Other gastrointestinal disorders (1 source) Diarrhea; Translations: [Diarrhea, unspecified] Onset: 11-05-2007 11-05-2007 Episodic Residual codes; unclassified (1 source) Vaccination required; Translations: [Need for zoster vaccination (Renamed from Need for shingles vaccine)] Resolved: 11-19-2019 11-19-2019 Episodic Residual codes; unclassified (2 sources) Other specified postprocedural states; Translations: [Other postprocedural status] Onset: 01-10-2024 01-10-2024 Episodic Unclassified (20 sources) Screening for prostate cancer; Translations: [Screening status] Resolved: 11-19-2019 11-19-2019 Unclassified (7 sources) Physical exam for work or camp (Renamed from Encounter for school health examination) Unclassified (3 sources) Flu-like symptoms Unclassified (2 sources) History of left arm fracture 09-17-2021 Unclassified (2 sources) History of left foot fracture 09-17-2021 Unclassified (2 sources) history of left and right epicondyle surgery 09-17-2021 Unclassified (2 sources) History of lumbar fusion 11-16-2024 Viral infection (20 sources) Disease caused by 2019-nCoV; Translations: [COVID] Onset: 01-01-2012 02-23-2021 Episodic Viral infection (3 sources) Disease caused by 2019-nCoV Results Test Name Value Interpretation Reference Range Facility LEFT L4 TRANSFORAMINAL EPIDU RAL STEROID INJECTIONon 12-15-2024 Flora Browning MD 12/15/2024 9:36 AM LEFT L4 TRANSFORAMINAL EPIDURAL STEROID INJECTION Date/Time: 12/15/2024 9:00 AM Performed by: Flora Browning MD Authorized by: Flora Browning MD Procedure Details: Procedure performed: lumbar HENRY - transforaminal After informed consent was obtained, the patient was escorted back to the procedure room and placed in the prone position on the procedure table. Verbal verification and time-out was performed and all present were in agreement. The patient was sterilely prepped and draped in usual fashion with chlorhexidine and Chloraprep gluconate 4% antiseptic solution. Procedure guidance: fluoroscopy with digital subtraction angiography The fluoroscope was brought into the field and a PA image was obtained to identify the appropriate vertebral body. The anterior and posterior aspects of the superior endplate of the vertebral body were superimposed upon one another. The fluoroscope was then rotated in an oblique angle toward the left such that the superior articulating process was positioned midway between the anterior and posterior aspects of the vertebral body superior endplate. The skin and subcutaneous tissues overlying the proposed needle entry site were anesthetized with 6 mL of lidocaine 1%. A 22 G 5.0 inch spinal needle was advanced to the subpedicular area. Needle depth was periodically evaluated using fluoroscopic imaging. Correct final needle position was confirmed with anteroposterior fluoroscopic imaging. Under live fluoroscopy 2 mL Iohexol 300 MG/ML was injected following negative aspiration for heme and air. Adequate contrast spread was confirmed. Medication Verification: I have personally verified and performed the final check of the medication(s) used in this procedure prior to administration. The following items were included during the verification process for medication(s) administered: drug name, strength, volume, expiration, physical integrity and appearance of the medication(s). A solution of 80 mg methylPREDNISolone acetate 80 MG/ML; 2 mL BUPivacaine (PF) 0.25 % was divided equally among the affected levels and injected. After completion of the injection, the needle was flushed and removed. The above listed procedure was done for: Left L4 Post Procedure Details: Complications: none The procedure was tolerated well. The patient was transported to the recovery room where they were observed for at least 20 minutes prior to discharge. The patient was discharged to home. They were advised to contact the office with any questions or concerns. Comments: Due to scar tissue and bony overgrowth, patient had severe pain on advancement of needle. Additional 3 cc of lidocaine 1% used prior to contrast. Pre-Procedure Details I have personally evaluated this patient on the day of service, and personally supervised the procedures as they were performed or performed any portion of the procedures myself. I have personally evaluated this patient on the day of service, and personally supervised the procedures as they were performed or performed any portion of the procedures myself. Pre Procedure Details: Informed consent was obtained. Risks and benefits were explained to the patient and they wish to proceed. We discussed risks (pain, bleeding, infection, CSF leak, positional headache, artery injury, paralysis, nerve injury, medication allergy, seizure, stroke and ), benefits (pain relief and increase in function and improvement of QoL), and process involved. [facility] Radiology Study observation (narrative) [facility] CT Lumbar Spine w/o Contrast on 12-07-2024 CT Lumbar Spine w/o Contrast Exam Performed at: [facility] [place] Patient Name: Rickey Williamson Patient : 1960 Referring Physician: Brian Preston Exam Date: 12/02/2024 Exam Description: CT Lumbar Spine w/o Contrast HISTORY: Post op status post L3-5 laminectomy decompression fixation fusion with refractory left l4/5 radiculopathy. TECHNICAL FACTORS: Standard CT technique was utilized. COMPARISON: Same day lumbar MRI. FINDINGS: 5 lumbar vertebrae. No fracture. Normal lordosis. Severe disc space narrowing endplate sclerosis and cystic change at L1-L2. Grade 1 anterolisthesis L4 on L5. Posterior decompression with dorsal lateral fusion construct L3-L5 on the left side. Intact hardware. L5-S1: Facet arthropathy. No canal stenosis. Mild foraminal narrowing. L4-L5: Posterior decompression of left-sided fusion. Pseudo disc of listhesis. Mild foraminal narrowing. L3-L4: Posterior decompression and fusion. Central zone extrusion. Left lateral recess narrowing. Moderate foraminal stenosis. L2-L3: Bilobed protrusions. No canal or foraminal stenosis. L1-L2: Disc bulge and endplate ridging. 8 mm AP diameter of the canal. Mild foraminal stenosis. T12-L1: Central protrusion. No canal or foraminal stenosis. Osteophytic spurring of sacroiliac joints. CONCLUSION: 1. Posterior decompression with dorsal lateral fusion construct L3-L5 on the left side. Intact hardware. 2. Central zone extrusion at L3-L4 with left lateral recess narrowing. Moderate foraminal stenosis. See same day MRI for additional details. 3. Grade 1 anterolisthesis L4 on L5. 4. Severe disc space narrowing endplate sclerosis and cystic change at L1-L2. Disc bulge and endplate ridging with 8 mm AP diameter canal. Thank you for the opportunity to provide your interpretation. Joanne Lenz MD A: TP 12/07/2024 8:09 AM EST Normal [facility] MR Lumbar Spine w/wo Contras ton 12-06-2024 MR Lumbar Spine w/wo Contrast Exam Performed at: [facility] Patient Name: Rickey Williamson Patient : 1960 Referring Physician: Brian Preston Exam Date: 12/02/2024 Exam Description: MR Lumbar Spine w/wo Contrast HISTORY: Chronic back pain, has had surgery to the lumbar in September 2024. Status post L3 fixation fusion with refractory left L4-5 radiculopathy. TECHNICAL FACTORS: Long- and short-axis fat- and water-weighted images were obtained before and after contrast administration. Contrast Type: DOTAREM 376.9 mg/mL [facility] [address]-2 Contrast Amt: 10.00 CC/mL. COMPARISON: None. FINDINGS: L5-S1: 2 mm central protrusion-type herniation. L4-5: Grade 1 anterolisthesis. Moderate bilateral foraminal stenosis due to a combination of facet disease and disc-osteophyte complex(es). L3-4: Minimally enhancing globular scar tissue favored over residual/recurrent central leftward protrusion-type herniation. Mild recess encroachment. Posterior decompression. Fixation hardware. Also, right far lateral protrusion-type herniation extends beyond spur. 4-5 mm. Abutment of the exiting nerve. Moderate stress response on the left involving the pedicle screw fixation at the L3 level. L2-3: Mild bilateral foraminal stenosis due to spares L1-2: Endplate reactive signal changes including edema on water-weighted data sets consistent with Modic changes. Moderate right foraminal stenosis due to a combination of facet disease and disc-osteophyte complex(es). T12-L1 central leftward cranially directed extrusion/disc fragment type herniation greater than 2 cm length. Mild conus abutment. Scoliosis. Marrow signal suggesting osteopenia/osteoporosis. Remote wedging of the vertebral body(s). No acute fracture. The remaining cord signal intensity is unremarkable. The remaining vertebral body marrow signal is unremarkable. The remaining prevertebral soft tissues are unremarkable. No significant ligamentum flavum hypertrophy unless detailed in specific level above. CONCLUSION: 1. T12-L1 central leftward cranially directed extrusion/disc fragment type herniation greater than 2 cm length. Mild conus abutment. 2. L3-4 minimally enhancing globular scar tissue favored over residual/recurrent central leftward protrusion-type herniation. Mild recess encroachment. Posterior decompression. Moderate stress response on the left involving the pedicle screw fixation at the L3 level. Thank you for the opportunity to provide your interpretation. Preston Patiño MD A: ELBA/gloria 12/06/2024 6:44 AM EST Normal [facility] XR SPINE LUMBAR 2-3 VIEWSon 11-16-2024 XR SPINE LUMBAR 2-3 VIEWS EXAM: XR SPINE LUMBAR 2-3 VIEWS, 11/16/2024 10:11 AM COMPARISON: September 12, 2023 CLINICAL INDICATIONS: L4-5 spondy w chronic recurrent LBP RELEVANT CLINICAL HISTORY: M43.10:Spondylolisthesis, grade 1 Flex & Ext Only; FINDINGS: Lateral flexion/extension images obtained. Vertebral: 5 lower nonrib-bearing lumbar type vertebrae as well as lumbarization of the S1 sacral segment. No lumbar spine instability identified between lateral flexion/extension views. Left-sided posterior fixation hardware spanning the L4-S1 levels, including vertical bharathi and pedicle screws, appears intact. Stable anterior wedging of the L2 and L3 vertebral bodies. Disc: Multilevel disc height loss with associated endplate degenerative changes and osteophytosis, most advanced at the L2-3 and L5-S1 levels. Joint: Facet joints appear anatomically aligned. IMPRESSION: 1. Lumbarization of the S1 sacral segment. 2. No lumbar spine instability identified with flexion/extension. 3. Left-sided posterior fixation hardware spanning the L4-S1 levels appears intact. 4. Multilevel degenerative disc disease. Normal [facility] XR SPINE SCOLIOSIS 2-3 VIEWS on 11-16-2024 XR SPINE SCOLIOSIS 2-3 VIEWS EXAM: XR SPINE SCOLIOSIS 2-3 VIEWS, 11/16/2024 10:12 AM COMPARISON: No prior studies available for comparison. CLINICAL INDICATIONS: pain RELEVANT CLINICAL HISTORY: M43.10:Spondylolisthesis, grade 1 M47.816:Lumbar spondylosis M47.814:Thoracic spondylosis FINDINGS: 2 images obtained. Thoracolumbar spine: 12 rib-bearing thoracic vertebral bodies and 5 lumbar vertebral bodies are identified. There is also lumbarization of the S1 sacral segment. Levocurvature of the lower thoracic and upper lumbar spine measuring 5 degrees between the superior endplate of T11 and the inferior endplate of L3. Straightening of the normal cervical spine lordosis. Multilevel laminectomy in the lower lumbar spine. Left-sided posterior fixation hardware at the L4-S1 levels appears intact. Multilevel spinal degenerative disc disease, most pronounced in the lower cervical, mid thoracic, and upper lumbar spine. No significant pelvic tilt. IMPRESSION: 1. Lumbarization of the S1 sacral segment. 2. Mild levocurvature of the lower thoracic and upper lumbar spine. 3. Straightening of normal cervical spine lordosis. 4. Left-sided posterior fixation hardware at the L4-S1 levels appears intact. Normal [facility] XR Spine lumbosacral junctio n Viewson 11-16-2024 IMPRESSION: 1. Lumbarization of the S1 sacral segment. 2. No lumbar spine instability identified with flexion/extension. 3. Left-sided posterior fixation hardware spanning the L4-S1 levels appears intact. 4. Multilevel degenerative disc disease. OLOGY EXAM: XR SPINE LUMBA R 2-3 VIEWS, 11/16/2024 10:11 AM COMPARISON: September 12, 2023 CLINICAL INDICATIONS: L4-5 spondy w chronic recurrent LBP RELEVANT CLINICAL HISTORY: M43.10:Spondylolisthesis, grade 1 Flex & Ext Only; FINDINGS: Lateral flexion/extension images obtained. Vertebral: 5 lower nonrib-bearing lumbar type vertebrae as well as lumbarization of the S1 sacral segment. No lumbar spine instability identified between lateral flexion/extension views. Left-sided posterior fixation hardware spanning the L4-S1 levels, including vertical bharathi and pedicle screws, appears intact. Stable anterior wedging of the L2 and L3 vertebral bodies. Disc: Multilevel disc height loss with associated endplate degenerative changes and osteophytosis, most advanced at the L2-3 and L5-S1 levels. Joint: Facet joints appear anatomically aligned. RADIOLOGY Dell Houser MD - 11/16/2024 EXAM: XR SPINE LUMBAR 2-3 VIEWS, 11/16/2024 10:11 AM COMPARISON: September 12, 2023 CLINICAL INDICATIONS: L4-5 spondy w chronic recurrent LBP RELEVANT CLINICAL HISTORY: M43.10:Spondylolisthesis, grade 1 Flex & Ext Only; FINDINGS: Lateral flexion/extension images obtained. Vertebral: 5 lower nonrib-bearing lumbar type vertebrae as well as lumbarization of the S1 sacral segment. No lumbar spine instability identified between lateral flexion/extension views. Left-sided posterior fixation hardware spanning the L4-S1 levels, including vertical bharathi and pedicle screws, appears intact. Stable anterior wedging of the L2 and L3 vertebral bodies. Disc: Multilevel disc height loss with associated endplate degenerative changes and osteophytosis, most advanced at the L2-3 and L5-S1 levels. Joint: Facet joints appear anatomically aligned. IMPRESSION IMPRESSION: 1. Lumbarization of the S1 sacral segment. 2. No lumbar spine instability identified with flexion/extension. 3. Left-sided posterior fixation hardware spanning the L4-S1 levels appears intact. 4. Multilevel degenerative disc disease. [facility] Radiology Study observation (narrative) [facility] XR Spine lumbosacral junctio n ViewsOrdered By: Dell Houser on 11-16-2024 [facility] Work Phone: XR Thoracic and lumbar spine Views for scoliosison 11-16-2024 IMPRESSION: 1. Lumbarization of the S1 sacral segment. 2. Mild levocurvature of the lower thoracic and upper lumbar spine. 3. Straightening of normal cervical spine lordosis. 4. Left-sided posterior fixation hardware at the L4-S1 levels appears intact. OLOGY EXAM: XR SPINE SCOLI OSIS 2-3 VIEWS, 11/16/2024 10:12 AM COMPARISON: No prior studies available for comparison. CLINICAL INDICATIONS: pain RELEVANT CLINICAL HISTORY: M43.10:Spondylolisthesis, grade 1 M47.816:Lumbar spondylosis M47.814:Thoracic spondylosis FINDINGS: 2 images obtained. Thoracolumbar spine: 12 rib-bearing thoracic vertebral bodies and 5 lumbar vertebral bodies are identified. There is also lumbarization of the S1 sacral segment. Levocurvature of the lower thoracic and upper lumbar spine measuring 5 degrees between the superior endplate of T11 and the inferior endplate of L3. Straightening of the normal cervical spine lordosis. Multilevel laminectomy in the lower lumbar spine. Left-sided posterior fixation hardware at the L4-S1 levels appears intact. Multilevel spinal degenerative disc disease, most pronounced in the lower cervical, mid thoracic, and upper lumbar spine. No significant pelvic tilt. RADIOLOGY Dell Houser MD - 11/16/2024 EXAM: XR SPINE SCOLIOSIS 2-3 VIEWS, 11/16/2024 10:12 AM COMPARISON: No prior studies available for comparison. CLINICAL INDICATIONS: pain RELEVANT CLINICAL HISTORY: M43.10:Spondylolisthesis, grade 1 M47.816:Lumbar spondylosis M47.814:Thoracic spondylosis FINDINGS: 2 images obtained. Thoracolumbar spine: 12 rib-bearing thoracic vertebral bodies and 5 lumbar vertebral bodies are identified. There is also lumbarization of the S1 sacral segment. Levocurvature of the lower thoracic and upper lumbar spine measuring 5 degrees between the superior endplate of T11 and the inferior endplate of L3. Straightening of the normal cervical spine lordosis. Multilevel laminectomy in the lower lumbar spine. Left-sided posterior fixation hardware at the L4-S1 levels appears intact. Multilevel spinal degenerative disc disease, most pronounced in the lower cervical, mid thoracic, and upper lumbar spine. No significant pelvic tilt. IMPRESSION IMPRESSION: 1. Lumbarization of the S1 sacral segment. 2. Mild levocurvature of the lower thoracic and upper lumbar spine. 3. Straightening of normal cervical spine lordosis. 4. Left-sided posterior fixation hardware at the L4-S1 levels appears intact. [facility] Radiology Study observation (narrative) [facility] Relevant diagnostic tests/la boratory data Narrativeon 11-13-2024 Fall risk assessment no [facility] Work Phone: MEDS REVIEW Documentation of cur rent medications (procedure) [employer] Work Phone: MEDS REVIEWD Medications reviewed with changes [employer] Work Phone: Relevant diagnostic tests/la boratory data Narrativeon 10-23-2024 Fall risk assessment no [facility] Work Phone: MEDS REVIEW Documentation of cur rent medications (procedure) [employer] Work Phone: MEDS REVIEWD Medications reviewed with [employer] Work Phone: Absolute neutrophil countOrd ered By: Blanca Mott on 05-06-2024 Neutrophils (Bld) [#/Vol] 3.5 10*3/uL 2.0-7.7 [facility] Basophil percentageOrdered B y: Blanca Mott on 05-06-2024 Basophils/100 WBC (Bld) 0.4 % 0-1 [facility] CBC W/Diff, Automatedon 04-18 Absolute Lymph 0.69 X10 3/uL Low 0.83-4.51 [facility] Comment on above: Performed By: #### L 100.0100, L300.3900, L300.4310 #### [facility] [address], [address] Absolute Neut 3.5 X10 3/uL Normal 2.0-7.7 [facility] Comment on above: Performed By: #### L 100.0100, L300.3900, L300.4310 #### [facility] [address] [place], [address] Basophils/100 WBC (Bld) 0.4 % Normal 0-1 [facility] Comment on above: Performed By: #### L 100.0100, L300.3900, L300.4310 #### [facility] [address] [place], [address] Eosinophils/100 WBC (Bld) 2.8 % Normal 0-5 [facility] Comment on above: Performed By: #### L 100.0100, L300.3900, L300.4310 #### [facility] [address] [place], [address] Erythrocyte distribution width (RBC) [Ratio] 12.8 % Normal 11.6-14.6 [facility] Comment on above: Performed By: #### L 100.0100, L300.3900, L300.4310 #### [facility] [address] [place], [address] Hematocrit (Bld) [Volume fraction] 43.3 % Normal 40-54 [facility] Comment on above: Performed By: #### L 100.0100, L300.3900, L300.4310 #### [facility] [address] [place], [address] Hemoglobin (Bld) [Mass/Vol] 15.4 g/dL Normal 13.0-16.5 [facility] Comment on above: Performed By: #### L 100.0100, L300.3900, L300.4310 #### [facility] [address] [place], [address] IG% 0.200 Normal 0.0-0.9 [facility] Comment on above: Result Comment: IG% - Immature Granulocytes (promyelocytes, myelocytes and metamyelocytes) > 1% indicates that a LEFT SHIFT is Present. Performed By: #### L 100.0100, L300.3900, L300.4310 #### [facility] [address] [place], [address] Lymphocytes/100 WBC (Bld) 14.6 % Low 19-41 [facility] Comment on above: Performed By: #### L 100.0100, L300.3900, L300.4310 #### [facility] [address] [place], [address] MCH (RBC) [Entitic mass] 31.2 pg Normal 27.0-32.0 [facility] Comment on above: Performed By: #### L 100.0100, L300.3900, L300.4310 #### [facility] [address] [place], [address] MCHC (RBC) [Mass/Vol] 35.6 g/dL Normal 32-36 [facility] Comment on above: Performed By: #### L 100.0100, L300.3900, L300.4310 #### [facility] [address] [place], [address] MCV (RBC) [Entitic vol] 87.8 fL Normal 80-94 [facility] Comment on above: Performed By: #### L 100.0100, L300.3900, L300.4310 #### [facility] [address] [place], [address] Monocytes/100 WBC (Bld) 8.3 % Normal 0-10 [facility] Comment on above: Performed By: #### L 100.0100, L300.3900, L300.4310 #### [facility] [address] [place], [address] Neutrophils/100 WBC (Bld) 73.7 % High 47-70 [facility] Comment on above: Performed By: #### L 100.0100, L300.3900, L300.4310 #### [facility] [address] [place], [address] Nucleated RBC (Bld) [#/Vol] 0 10*3/uL Normal 0-5 [facility] Comment on above: Performed By: #### L 100.0100, L300.3900, L300.4310 #### [facility] [address] [place], [address] Platelet mean volume (Bld) [Entitic vol] 9.2 fL Normal 6.2-12.0 [facility] Comment on above: Performed By: #### L 100.0100, L300.3900, L300.4310 #### [facility] [address] [place], [address] Platelets (Bld) [#/Vol] 215 10*3/uL Normal 150-450 [facility] Comment on above: Performed By: #### L 100.0100, L300.3900, L300.4310 #### [facility] [address] [place], [address] RBC (Bld) [#/Vol] 4.93 10*6/uL Normal 4.6-6.2 [facility] Comment on above: Performed By: #### L 100.0100, L300.3900, L300.4310 #### [facility] [address] [place], [address] RDW SD 41.2 fl Normal 35.1-43.9 [facility] Comment on above: Performed By: #### L 100.0100, L300.3900, L300.4310 #### [facility] [address] [place], [address] WBC (Bld) [#/Vol] 4.7 10*3/uL Normal 4.4-11.0 [facility] Comment on above: Performed By: #### L 100.0100, L300.3900, L300.4310 #### [facility] [address] [place], [address] Eosinophil percentageOrdered By: Blanca Mott on 05-06-2024 Eosinophils/100 WBC (Bld) 2.8 % 0-5 [facility] Erythrocyte distribution wid th ratioOrdered By: Blancadon Mott on 05-06-2024 Erythrocyte distribution width (RBC) [Ratio] 12.8 % 11.6-14.6 [facility] Erythrocyte distribution wid th standard deviationOrdered By: Blanca Tiera on 05-06-2024 Erythrocyte distribution width (RBC) [Entitic vol] 41.2 fL 35.1-43.9 [facility] Hematocrit Auto (Bld) [Volum e fraction]Ordered By: Blancadon Mott on 05-06-2024 Hematocrit (Bld) [Volume fraction] 43.3 % 40-54 [facility] Hemoglobin measurementOrdere d By: [facility] on 05-06-2024 Hemoglobin (Bld) [Mass/Vol] 15.4 g/dL 13.0-16.5 [facility] Immature granulocytes/100 WB C Auto (Bld)Ordered By: Chapin Tiera on 05-06-2024 Immature granulocytes/100 WBC (Bld) 0.200 % 0.0-0.9 [facility] Comment on above: IG% - Immature Granu locytes (promyelocytes, myelocytes and metamyelocytes) > 1% indicates that a LEFT SHIFT is Present. International normalized rat io (INR) calculationOrdered By: Blancadon Mott on 05-06-2024 INR Coag (Bld) [Relative time] 1.0 {INR} [facility] Lumbar Myelogramon Lumbar Myelogram [facility] Imaging Services [address] [place] [address] Lumbar Myelogram MR#: [id number] Acct: [id number] Name: NAYA WILLIAMSON Rep #: [id number] : 1960 M 63 From: Lee bello MD PCP: Dr. Pradeep Gillespie MD Status: REG CLI Study: Lumbar Myelogram Date of Exam: 05/06/24 Exam# [id number] Ordering Dr: Moncho Bautista MD PROCEDURE: LUMBAR MYELOGRAM 05/06/2024 REASON FOR EXAM: POST OP Persistent low back pain. TECHNIQUE: The procedure as well as the benefits and possible complications including infection, bleeding and headaches were explained to the patient. Informed consent was obtained. The patient was in the prone position. Following local anesthetic application, a lumbar puncture was performed at the L3-L4 level. Free flowing CSF was noted. Following this, 10 cc of Isovue M 200 was injected intrathecally. Imaging was provided. COMPARISON: None FINDINGS: The patient is status post laminectomy at the L4-L5 and L5-S1 level with fusion at the L4-L5 level on the left side utilizing intrapedicular screw fixation and bharathi fixation device. There is evidence of degenerative disc disease and narrowing at the L1-L2 and L2-L3 levels. No evidence of spinal stenosis on this examination. Minimal anterior extradural defect at the L3-L4 level most likely secondary to a central disc bulge. RAD/Lumbar Myelogram IMPRESSION: Successful lumbar puncture as described. The patient tolerated the procedure well with no immediate complication. A CT scan will follow. Reading Location: [place] [address] CC: Dr. Pradeep Gillespie MD; Dr. Moncho Bautista MD; Dr. Villa Wells MD Computer Publisher: Signed Normal [facility] Lymphocytes Auto (Unsp spec) [#/Vol]Ordered By: Blanca Mott on 05-06-2024 Lymphocytes (Bld) [#/Vol] 0.69 10*3/uL Low 0.83-4.51 [facility] Lymphocytes/100 WBC Auto (Un sp spec)Ordered By: Blanca Mott on 05-06-2024 Lymphocytes/100 WBC (Bld) 14.6 % Low 19-41 [facility] MCV (mean corpuscular volume ) determinationOrdered By: Blanca Mott on 05-06-2024 MCV (RBC) [Entitic vol] 87.8 fL 80-94 [facility] Mean corpuscular hemoglobin (MCH) determinationOrdered By: Blanca Mott on 05-06-2024 MCH (RBC) [Entitic mass] 31.2 pg 27.0-32.0 [facility] Mean corpuscular hemoglobin concentration (MCHC) determinationOrdered By: Blanca Mott on 05-06-2024 MCHC (RBC) [Mass/Vol] 35.6 g/dL 32-36 [facility] Mean platelet volume determi nationOrdered By: Blanca Mott on 05-06-2024 Platelet mean volume (Bld) [Entitic vol] 9.2 fL 6.2-12.0 [facility] Monocyte percentageOrdered B y: Blanca Mott on 05-06-2024 Monocytes/100 WBC (Bld) 8.3 % 0-10 [facility] Neutrophil percentageOrdered By: Blancadon Mott on 05-06-2024 Neutrophils/100 WBC (Bld) 73.7 % High 47-70 [facility] Nucleated red blood cell per centageOrdered By: Blancadon Mott on 05-06-2024 Nucleated RBC/100 WBC (Bld) [Ratio] 0 % 0-5 [facility] Partial Thromboplast Timeon 05-06-2024 aPTT Coag (Bld) [Time] 27.2 s Normal 24.1-36.2 [facility] Comment on above: Performed By: #### L 100.0100, L300.3900, L300.4310 #### [facility] [address] [place], [address] Platelet countOrdered By: Beni Mott on 05-06-2024 Platelets (Bld) [#/Vol] 215 10*3/uL 150-450 [facility] Prothrombin Time w/INRon INR Coag (PPP) [Relative time] 1.0 {INR} Normal [facility] Comment on above: Performed By: #### L 100.0100, L300.3900, L300.4310 #### [facility] [address] [place], [address] PT Coag (PPP) [Time] 13.6 s Normal 11.7-14.9 [facility] Comment on above: Performed By: #### L 100.0100, L300.3900, L300.4310 #### [facility] [address] [place], [address] Prothrombin timeOrdered By: Blanca Mott on 05-06-2024 PT Coag (PPP) [Time] 13.6 s 11.7-14.9 [facility] RBC Auto (Bld) [#/Vol]Ordere d By: Blanca Mott on 05-06-2024 RBC (Bld) [#/Vol] 4.93 10*6/uL 4.6-6.2 [facility] Spine Lumbar WITH Contraston 05-06-2024 Spine Lumbar WITH Contrast [facility] Imaging Services [address] [place] [address] Spine Lumbar WITH Contrast MR#: [id number] Acct: [id number] Name: NAYA WILLIAMSON Rep #: [id number] : 1960 M 63 From: Lee bello MD PCP: Dr. Pradeep Gillespie MD Status: REG CLI Study: Spine Lumbar WITH Contrast Date of Exam: 05/06 Exam# [id number] Ordering Dr: Moncho Bautista MD PROCEDURE: SPINE LUMBAR WITH intrathecal CONTRAST REASON FOR EXAM: POST OP Chronic pain following laminectomy and fusion.. TECHNIQUE: Lumbar spine CT with contrast. CONTRAST: Isovue M 200 VOLUME: 10mL. Intrathecal administration. One or more dose reduction techniques were used (e.g., Automated exposure control, adjustment of the mA and/or kV according to patient size, use of iterative reconstruction technique). RADIATION DOSE SUMMARY: CTDlvol: 21.14 mGy DLP: 711.42 mGycm COMPARISON: Comparison is made with prior lumbar myelogram done earlier in the day. FINDINGS: Vertebrae: Multilevel spondylosis. Alignment: Minimal anterior listhesis of L4 on L5. L1-2: Moderate degree of disc space narrowing and disc degeneration. Spondylosis. Minimal central stenosis due to hypertrophy of the facet joints. L2-3: Mild degree of disc space narrowing. Facet joint osteoarthritis and hypertrophy. Mild bilateral neural foraminal stenosis and central canal stenosis due to hypertrophy of the ligamentum flava. L3-4: Mild degree of disc space narrowing. Facet joint osteoarthritis and hypertrophy with bilateral neural foraminal stenosis more prominent on the left side. There is evidence of left intrapedicular screw fixation. L4-5: Minimal anterior listhesis of L4 on L5. Status post laminectomy and intrapedicular screw fixation in the left facet joint. No evidence of spinal stenosis. L5-S1: Mild degree of disc space narrowing. No significant abnormality is seen. Sacrum: Unremarkable. CT/Spine Lumbar WITH Contrast IMPRESSION: Status post laminectomy and left intrapedicular screw fixation at the L3-L4 and L4-L5 levels. Minimal anterior listhesis of L4 on L5. Mild bilateral neural foraminal stenosis at multiple levels. Mild central canal stenosis at the L1-L2 level. Reading Location: [place] [address] CC: Dr. Pradeep Gillespie MD; Dr. Moncho Bautista MD; Dr. Villa Wells MD Computer Publisher: Signed Normal [facility] White blood cell (WBC) count Ordered By: Blanca Mott on 05-06-2024 WBC (Bld) [#/Vol] 4.7 10*3/uL 4.4-11.0 [facility] aPTT Coag (PPP) [Time]Ordere d By: Blanca Mott on 05-06-2024 aPTT Coag (Bld) [Time] 27.2 s 24.1-36.2 [facility] Inital Evaluation (1) - PTon 03-05-2024 Inital Evaluation (1) - PT [facility] Physical Therapy [address] [place] [address] / REHABILITATION SERVICES INITIAL EVALUATION MR#: [id number] Acct: [id number] Name: NAYA WILLIAMSON Rep #: [id number] : 1960 63 From: Dequan Romo DPT Referring Dr.: Dr. Pradeep Gillespie MD Status: REG RCR Insurance: [facility] PACKAGE PLAN SELF PAY INSURANCE Patient's Visit Information Visit Information Visit Information: NAYA WILLIAMSON is a 63 year old M referred to Physical Therapy by Dr. Pradeep Gillespie MD with a diagnosis of R buttock pain, L2/L3 radiculopathy. Date of Evaluation: 02/28/24 Physical Therapist: Dequan Romo DPT Visit Plan Frequency: 1x/Week Duration: 6 Weeks Plan: 1) Neutral spine core stability, progressing to dynamic strengthening 2) slowly progress lumbar ROM Subjective Subjective: Pt. is here today for his initial evaluation with diagnosis of R buttock pain, L2/L3 radiculopathy. Pt. has had multiple back surgeries over the past 6 months. He initially had a L4/L5 fusion, but more recently 6 weeks ago had a L3/L4 discectomy. Pt. reports overall doing much better since his last surgery. He is able to stand up much better, he is however still having increased pain with getting up/down from seated positions. Once standing he reports doing well. He reports symptoms spike to 8/10 with getting up. He reports no N/T in either LE. 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 He reports trying to chop some wood, but was sore and therefor held off. Pt. reports no BLE weakness. Pt. is able to bend over without much issues now. Pt. is sleeping better, still sore with getting up/down out of bed. Pt. is back to work, desk like jobs with good tolerance. Pt. is hopeful to reduce his symptoms with getting up/down to allow for improved quality of life. Pain R sided glute: Pain Intensity (Out of 10): 2 Pain Intensity Range: 0 and 8 Objective Objective: POSTURE: Pt. is able to stand with close to full upright posture. pt. has normal lumbar spine positioning and normal iliac crest heights. PALPAITON: Pt. has slight tenderness along lumbar erector spinae. Pt. has no pain with palpation of distal LEs. NEURO: Pt. has normal sensation in BLEs. Pt. has normal DTR of BLEs. Pt. is able to rise on heels and toes without issues. ROM: LUMBAR SPINE: flexion min loss NE, ext mod loss mild increase NW, SB min loss NE bilat, rotation min/mod loss mild increase NW bilat. Pt. has tightness in B HS as well. Normal B hip ROM noted without increase in symptoms. MMT: LEs: 5/5 throughout distal BLEs, no myotomal weakness noted. B hip: 4+/5 without increase in symptoms. Core strength: poor. GAIT: Pt. has decreased B arm swing, Pt. has slight flexed posture with gait, but not as much as previously. STAIRS: reciprocal pattern with use of 1 HR. NO increase in symptoms. Balance/Special Test Scores Oswestry Low Back Score: 9 Goals Goal 1:: LTG: Pt. to be I with HEP. Goal Time Frame: 4-6 Weeks Goal 2:: LTG: Pt. to have increased lumbar ROM to full without increase in symptoms. Goal Time Frame: 4-6 Weeks Goal 3:: LTG: Pt. to have 5/5 B hip and fair+ core strength. Goal Time Frame: 4-6 Weeks Goal 4:: LTG: Pt. to have no pain with rising from seated positions. Goal Time Frame: 4-6 Weeks Goal 5:: LTG: pt. to be able to complete all ADLs and work activities without increase in symptoms. Goal Time Frame: 4-6 Weeks Rehabilitation Potential Physical Therapy Diagnosis: Pt. has signs and symptoms consistent with R buttock pain, L2/L3 radiculopathy. Pt. has marked lumbar hypomobility, weakness in core and hips and increased pain with his R hip and groin region. Pt would benefit from PT to reduce his symptoms and increase in core strength in order to get back to all work and recreational activities without limitations. Rehabilitation Potential: Good Anticipated Interventions Patient/Client Instruction: Educate patient on: Condition, Plan of Care, Risk Factors and Benefits of Fitness Program For the Purpose of:: To improve decision making, To facilitate caregiver knowledge, To improve self management, To prevent re-injury and To improve ability to perform tasks related to life management Therapeutic Exercise to Include: Strength training, Power training, Coordination, Postural training, Flexibilty training, Passive ROM, Active ROM, Dynamic Lumbar Stabilization and Osvaldo Exercises For the Purpose of:: To decrease pain, To increase ROM, To improve nutrient delivery to tissue, To increase oxygenation perfusion, To improve muscle performance and motor function, To improve ability to perform ADL's, To improve health of tissue and To decrease soft tissue restriction Text: Thank you for the opportunity to evaluate your patient. For Medicare and Medicare HMO plans, please review the (more content not included)... Normal [facility] HIP, UNI W/ Pelvis 2-3 Views on 02-20-2024 HIP, UNI W/ Pelvis 2-3 Views [facility] [address] [place] [address] HIP, UNI W/ Pelvis 2-3 Views MR#: [id number] Acct: [id number] Name: NAYA WILLIAMSON Rep #: [id number] : 1960 M 63 From: Heron Goldberg MD PCP: Dr. Pradeep Gillespie MD Status: DEP AMB Study: HIP, UNI W/ Pelvis 2-3 Views Date of Exam: 04/14 Exam# [id number] Ordering Dr: Pradeep Gillespie MD [id number] STUDY: X-RAY - PELVIS AND RIGHT HIP REASON FOR EXAM: Male, 63 years old. Right hip pain. TECHNIQUE: 3 views of the pelvis and right hip. COMPARISON: Pelvis and right hip dated 11/25/2023. FINDINGS: There is a non-specific bowel gas pattern. Normal visualized soft tissue structures. Normal bilateral iliac wings, sacroiliac joints and visualized sacrum. Normal bilateral superior and inferior pubic rami. Normal pubic symphysis. Normal bilateral ischial tuberosities. Again seen is a left hip arthroplasty in place. There is no periprosthetic fracture. There is persistent mild degenerative arthrosis of the right hip joint with marginal osteophyte formation and subchondral cyst formation in the right superior acetabulum. Again seen are laminectomy defects and unilateral left-sided pedicle screw posterior fixation at L4-5. RAD/HIP, UNI W/ Pelvis 2-3 Views IMPRESSION: Left hip arthroplasty, with no periprosthetic fracture. Persistent mild degenerative arthrosis of the right hip joint. Electronically Signed: Heron Goldberg MD at 15:40 EST , CC: Dr. Pradeep Gillespie MD Computer Publisher: Signed Normal [facility] HIP, UNI W/ Pelvis 2-3 Views on 11-25-2023 HIP, UNI W/ Pelvis 2-3 Views [facility] [address] [place] [address] HIP, UNI W/ Pelvis 2-3 Views MR#: [id number] Acct: [id number] Name: NAYA WILLIAMSON Rep #: [id number] : 1960 M 62 From: Alfonso Yeung PCP: Dr. Pradeep Gillespie MD Status: DEP AMB Study: HIP, UNI W/ Pelvis 2-3 Views Date of Exam: 09/10 Exam# [id number] Ordering Dr: Pradeep Gillespie MD [id number] INDICATION: PAIN EXAMINATION/TECHNIQUE: X-RAY - XR Hip Unilateral with Pelvis when performed; 2-3 Views COMPARISON: 04/12/2022 FINDINGS: PELVIC BONES: No displaced fracture, destructive or sclerotic lesions. Note that overlapping bowel shadows may however obscure fine detail. Sacroiliac joints are unremarkable. No widening of the pubic symphysis. Incidental note of interval postoperative changes of laminectomy defects and unilateral left-sided pedicle screw posterior fixation at L4-5. HIPS: 1. Interval LEFT hip arthroplasty, with normal alignment. The full extent of the arthroplasty however not included on current exam. 2. RIGHT hip has normal alignment, no fracture or dislocation. Mild degenerative change and subchondral sclerosis and osteophyte formation however. SOFT TISSUES: No soft tissue swelling or gas. RAD/HIP, UNI W/ Pelvis 2-3 Views IMPRESSION: 1. Interval postop change of LEFT hip arthroplasty. Normal alignment without evidence fracture or dislocation however the full extent of the arthroplasty is not included on current exam. 2. Osteoarthritic changes involving the RIGHT hip including subchondral sclerosis and osteophyte formation. No evidence however of RIGHT hip fracture or dislocation. 3. Pelvic ring is intact. 4. Interval postoperative changes laminectomy defects and unilateral left-sided pedicle screw posterior fixation at L4-5. Electronically Signed: Alfonso Lu MD at 23:50 EDT , CC: Dr. Pradeep Gillespie MD Computer Publisher: Signed Normal [facility] Inital Evaluation (1) - PTon 11-12-2023 Inital Evaluation (1) - PT [facility] Physical Therapy [facility] [address] [place] [address] / REHABILITATION SERVICES INITIAL EVALUATION MR#: [id number] Acct: [id number] Name: NAYA WILLIAMSON Rep #: [id number] : 1960 62 From: Dequan SUT Referring Dr.: Deena Albert PA-C Status: REG RCR Insurance: [facility] PACKAGE PLAN SELF PAY INSURANCE Patient's Visit Information Visit Information Visit Information: NAYA WILLIAMSON is a 62 year old M referred to Physical Therapy by Deena Albert PA-C with a diagnosis of L3 Hemilaminectomy, L4-L5 laminectomy and fusion. DOS: 10/15/23. Date of Evaluation: 11/12/23 Physical Therapist: Dequan Romo DPT Visit Plan Frequency: 2-3x /Week Duration: 6 Weeks Plan: Check superior aspect of incision. Pt. was to follow back up with physician about it. 1) HS and hip flexor stretching, with out nerve irritation. 2) work on getting posture to fully upright. 3) progressive walking program 4) LE strengthening, neutral spine core stability. May use ice for pain control. Once incision is fully closed you can add in IASTIM to lumbar erector spinae and paraspinals. Subjective Subjective: Pt. is here today for his initial evaluation with diagnosis of L3 Hemilaminectomy, L4-L5 laminectomy and fusion. DOS: 10/15/23. Pt. reports prior to surgery he was having a lot pain and was barely able to walk secondary to his pain. He is doing much better, but is still having some issues. He is still having some trouble sleeping. No N/T in his LE, but still gets some pain in his R anterior hip with increased trunk extension. 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 He did try and go in a little bit. He reports increased ability to stand more upright and walk more over the past few days. Pt. is hopeful to reduce symptoms and get back to all work and recreational activities without limitations. Pain Lumbar spine: Pain Intensity (Out of 10): 3 Pain Intensity Range: 1 and 5 Objective Objective: POSTURE: Pt. has flexed posture in stance. Pt. increased without AD. He is able to improve with VCing, but does have increased pain prior to getting full upright posture. PALPATION: Pt. has healing incision. His bandage has been removed. Lower incision looks great. At his superior part of his incision he has an area that is raised, red. This area has me a bit concerned. I would like him to have his surgeon to take a look at this. I too a picture of it on his phone to send to him. NEURO: Pt. has normal sensation and DTR of bLEs. Pt. is able to rise on heels and toes without issues. ROM: LUMBAR SPINE: flexion mod loss increase NW, ext max loss increase NW, SB mod loss bilat increase NW, rotation max loss bilat increase NW. Tight HS and hip flexors bilaterally. MMT: PT. has good strength throuhgout BLEs. no myotomal weakness noted. GAIT: PT. ambulates with FWW with flexed posture. Pt. reports increased pain with increased erect posture. Balance/Special Test Scores Oswestry Low Back Score: 30 Goals Goal 1:: LTG: Pt. to be I with HEP. Goal Time Frame: 6-8 Weeks Goal 2:: STG: Pt. to sleep throughout the night without increase in low back pain. Goal Time Frame: 2-4 Weeks Goal 3:: STG: Pt. to be able to stand with good upright posture without increase in lumbar spine and R LE pain. Goal Time Frame: 2-4 Weeks Goal 4:: LTG: Pt. to ambulate with good gait pattern with use of FWW without increase in lumbar spine or RLE pain. Goal Time Frame: 4-6 Weeks Goal 5:: LTG: Pt. to have good core stability allowing for decreased pain with all functional mobility. Goal Time Frame: 4-6 Weeks Rehabilitation Potential Physical Therapy Diagnosis: Pt. has signs and symptoms consistent with L3 Hemilaminectomy, L4-L5 laminectomy and fusion. DOS: 10/15/23. Pt. has marked decreased ROM, increased pain, difficulty with walking and decreased activity. He would benefit from PT to address the above limitations progressing back to all work and recreational activities without issues. Rehabilitation Potential: Good Anticipated Interventions Patient/Client Instruction: Educate patient on: Condition, Plan of Care, Risk Factors and Benefits of Fitness Program For the Purpose of:: To improve health and function, To foster healthy habits, To improve decision making, To facilitate caregiver knowledge, To improve self management, To prevent re-injury and To improve ability to perform tasks related to life management Therapeutic Exercise to Include: Strength training, Power training, Balance training, Coordination, Body mechanics, Postural training, Flexibilty training, Gait and locomotor training, Active ROM, Dynamic Lumbar Stabilization and Osvaldo Exercises For the Purpose of:: To decrease pain, To increase ROM, To improve nutrient delivery to tissue (more content not included)... Normal [facility] XR Spine Lumbar and Sacrum 5 Viewson 09-12-2023 IMPRESSION: 1. 6 lower nonrib-bearing lumbar type vertebrae, favored to reflect lumbarization of the S1 sacral segment. 2. Mild dextrocurvature of the lumbar spine. 3. Multilevel degenerative disc disease. 4. Lower lumbar spine degenerative facet arthropathy. OLOGY EXAM: XR SPINE LUMBA R 4+ VIEWS, 09/12/2023 12:30 PM COMPARISON: No priors available for comparison. CLINICAL INDICATIONS: low back pain RELEVANT CLINICAL HISTORY: M54.50:Lumbar pain Standing AP/Lat/Flexion/Extension; FINDINGS: 5 images obtained. Vertebral: 6 lower nonrib-bearing lumbar type vertebrae, favored to reflect lumbarization of the S1 sacral segment. Mild dextrocurvature of the lumbar spine. Vertebral body height maintained in the lumbar spine. Disc: Intervertebral disc height loss with associated endplate degenerative changes and osteophytosis at the L2-3, L5-S1, and S1-2 levels. Joint: Facet joints appear anatomically aligned. Facet joint space narrowing with associated subchondral sclerosis/marginal osteophytosis at the L5-S1 and S1-2 levels. RADIOLOGY Dell Houser MD - 09/12/2023 EXAM: XR SPINE LUMBAR 4+ VIEWS, 09/12/2023 12:30 PM COMPARISON: No priors available for comparison. CLINICAL INDICATIONS: low back pain RELEVANT CLINICAL HISTORY: M54.50:Lumbar pain Standing AP/Lat/Flexion/Extension; FINDINGS: 5 images obtained. Vertebral: 6 lower nonrib-bearing lumbar type vertebrae, favored to reflect lumbarization of the S1 sacral segment. Mild dextrocurvature of the lumbar spine. Vertebral body height maintained in the lumbar spine. Disc: Intervertebral disc height loss with associated endplate degenerative changes and osteophytosis at the L2-3, L5-S1, and S1-2 levels. Joint: Facet joints appear anatomically aligned. Facet joint space narrowing with associated subchondral sclerosis/marginal osteophytosis at the L5-S1 and S1-2 levels. IMPRESSION IMPRESSION: 1. 6 lower nonrib-bearing lumbar type vertebrae, favored to reflect lumbarization of the S1 sacral segment. 2. Mild dextrocurvature of the lumbar spine. 3. Multilevel degenerative disc disease. 4. Lower lumbar spine degenerative facet arthropathy. [facility] Radiology Study observation (narrative) [facility] XR Spine Lumbar and Sacrum 5 ViewsOrdered By: Dell Houser on 09-12-2023 [facility] Work Phone: MR L-SPINE W/Oon 07-24-2023 MR L-SPINE W/O EXAMINATION: MR L-SP INE W/O 07/24/2023 12:59 PM CLINICAL HISTORY: Low back pain ASSOCIATED DIAGNOSIS: Degeneration of lumbar intervertebral disc ORDERING PROVIDER: PRADEEP GILLESPIE TECHNOLOGISTS NOTE: COMPARISON: None TECHNIQUE: Patient questionnaire was completed and was reviewed by MRI personnel prior to the patient entering the scanner. Multiplanar, multisequence MR imaging of the lumbar spine was performed without intravenous contrast. FINDINGS: Numbering: The most inferior fully formed disc space is designated L5-S1. Alignment: Grade 1 degenerative anterolisthesis of L4 and L5. Vertebral Body Height: Normal. Bone Marrow and Discs: Mild and moderate multilevel spondylosis. Conus: Normal position and signal intensity. Paraspinal Soft Tissues: Within normal limits. T12-L1: Small central extrusion extending superiorly with mild narrowing of the ventral canal. Patent foramen. L1-L2: Diffuse disc bulge with mild narrowing of the canal. Disc extends into the right foramen and focally abuts the exiting right L1 nerve root. Mild narrowing of the right and left foramen. L2-L3: Shallow disc bulge with minimal narrowing of the canal. Patent foramen L3-L4: Disc bulge with mild narrowing of the canal. Right foraminal protrusion with abutment and mild displacement of the exiting right L3 nerve root with mild/moderate focal narrowing of the left foramen. Mild left foraminal narrowing. L4-L5: Disc uncovering with ligamentum flavum thickening with moderate to severe narrowing of the canal most pronounced in the right subarticular zone. Mild bilateral foraminal stenosis with minimal abutment of the exiting left L4 nerve root. L5-S1: Small central protrusion without significant canal narrowing. Moderate focal narrowing of the right foramen. Mild left foraminal narrowing. Sacrum: Within normal limits. IMPRESSION: 1. Multilevel spondylosis with moderate to severe L4-5 canal narrowing with superimposed grade 1 L4 on L5 degenerative anterolisthesis. 2. Varying levels of neural foraminal stenosis with multilevel nerve root abutment as above. MACRO: None Normal [employer] Game VenturesOVon 10-27-2022 CNOV Office Visit ([facility] ) ----- NAYA WILLIAMSON ([id number]) 1960 M Date Time Provider Department 10/27/22 8:45 AM RAYRAY HUGO [facility] During your visit today, we recorded the following information about you: Temperature Pulse Respiration Blood pressure 97.6 degrees 60/minute 21/minute 130/74 Weight 91.3 kg Rayray Hugo PA-C 10/27/2022 8:48 AM Signed Flonase nasal spray over the counter Zyrtec over the counter If you spike a fever over 100.4 or not better on day 10 be seen again. Rayray Hugo PA-C 10/27/2022 9:00 AM Signed This note was created using [employer]. Subjective Naya Williamson is a 61 year old male. HPI Presents with sore throat, cough, question if over the past 5 days. No fever. No chest pain or shortness of breath. No vomiting. No diarrhea. Denies sick contacts. Has had some body aches. No chills. He has tried cough drops [id number]-kslkcvr. He states the cough seems to worsen at night. He does have some postnasal drip. Review of Systems Constitutional: Negative for fever. HENT: Positive for congestion, postnasal drip and sore throat. Negative for ear pain, sinus pressure and sinus pain. Respiratory: Positive for cough. Negative for chest tightness, shortness of breath and wheezing. Cardiovascular: Negative for chest pain. Gastrointestinal: Negative. Genitourinary: Negative. Musculoskeletal: Positive for myalgias. All other systems reviewed and are negative. PAST MEDICAL HISTORY Diagnosis Date Cancer (HCC) skin cancer on face. Diarrhea Hemorrhage of gastrointestinal tract, unspecified Current Outpatient Medications Medication Sig Dispense Refill IBUPROFEN ORAL Take by mouth as needed. Patient does not know dose MULTIVITAMIN TABLET PO Take one(1) tablet daily. 0 benzonatate (TESSALON PERLES) 100 mg capsule Take 2 capsules by mouth three times daily as needed for cough. 30 capsule 0 gabapentin (NEURONTIN) 300 mg capsule Take 1 capsule by mouth daily at bedtime. For 5 days then one twice a day as tolerated. (Patient not taking: Reported on 08/18/2018 ) 60 capsule 1 No current facility-administered medications for this visit. PAST SURGICAL HISTORY Procedure Laterality Date COLONOSCOPY FLX DX W/COLLJ SPEC WHEN PFRMD 07/08/2009 Colonoscopy PAST SURGICAL HISTORY OF 2001 skin cancer removed from face PAST SURGICAL HISTORY OF 1998 Left ACL repaired PAST SURGICAL HISTORY OF 1348-5530 Tendons tear bilat elbows. PAST SURGICAL HISTORY OF 01/2009 right rotator cuff PAST SURGICAL HISTORY OF Left arm surgery, open reduction. PAST SURGICAL HISTORY OF Approx. 2010 Left rotator cuff repair RHINP PRIM LATANDALAR CRTLGSAND/ELVTN NASAL TI 1988 Rhinoplasty RPR 1ST INGUN HRNA FULL TERM INFT <6 MO RDC mid FAMILY HISTORY Problem Relation Age of Onset Ischemic Heart Disease Father cad 57 Ischemic Heart Disease Paternal Grandfather [place] 80 other (brain cancer) Maternal Grandfather other (skin ca) Paternal Grandmother GI Mother polyps Cancer Mother Social History Tobacco Use Smoking status: Never Smokeless tobacco: Never Vaping Use Vaping Use: Never used Substance Use Topics Alcohol use: Yes Comment: rarely has a beer Drug use: No Objective BP 130/74 Pulse 60 Temp 36.4 ?C (97.6 ?F) Resp 21 Wt 91.3 kg (201 lb 3.2 oz) SpO2 100% BMI 26.55 kg/m? Physical Exam Vitals reviewed. Constitutional: Appearance: Normal appearance. HENT: Head: Normocephalic and atraumatic. Right Ear: Tympanic membrane, ear canal and external ear normal. Left Ear: Tympanic membrane, ear canal and external ear normal. Nose: Congestion present. Mouth/Throat: Mouth: Mucous membranes are moist. Pharynx: Oropharynx is clear. Cardiovascular: Rate and Rhythm: Normal rate and regular rhythm. Heart sounds: Normal heart sounds. Pulmonary: Effort: Pulmonary effort is normal. Breath sounds: Normal breath sounds. Musculoskeletal: Cervical back: Neck supple. Lymphadenopathy: Cervical: No cervical adenopathy. Skin: General: Skin is warm and dry. Neurological: Mental Status: He is alert. Assessment and Plan ASSESSMENT/PLAN: 1. URI, acute - ICD9: 465.9, ICD10: J06.9 -Tessalon for cough prescribed. Discussed using Flonase and Zyrtec [id number] for postnasal drip and congestion. Follow-up if not improving or if developing fever or worsening. Covid test declined. - Discussed viral etiology and rationale for treatment. - Symptomatic treatment with prn analgesia - Supportive care with fluids and rest - Follow up in 3-5 days if symptoms persist or sooner if worsening of symptoms ANGELY Marcos-C Allergies As of Date: 10/27/2022 (No Known Allergies) Date Reviewed: 10/27/2022 Reviewed by: Shannon Cody MA - Fully Assessed Reason for Visit: Head Congestion [234] Cmt: Sore throat, cough x 5 days Primary Visit Diagn (more content not included)... Normal [facility] CBC, PLATELETS & AUT DIFF (3 [id number])Ordered By: Recreation Center Director on 06-26-2022 Basophils (Bld) [#/Vol] 0.0 10*3/uL Normal 0.0-0.2 [facility]; [facility] Work Phone: Comment on above: PATIENT WAS FASTINGP ERFORMED BY: CB [facility] Pelekf[address] RoadDublin [place] [id number] Basophils/100 WBC (Bld) 1 % Normal [facility]; [facility] Work Phone: Comment on above: PATIENT WAS FASTINGP ERFORMED BY: CB [facility] Uwsvwv8[address] RoadDublin [place] [id number] Eosinophils (Bld) [#/Vol] 0.1 10*3/uL Normal 0.0-0.4 [facility]; [facility] Work Phone: Comment on above: PATIENT WAS FASTINGP ERFORMED BY: CB [facility] Bhoutt485[address]Dublin [place] [id number] Eosinophils/100 WBC (Bld) 2 % Normal [facility]; [facility] Work Phone: Comment on above: PATIENT WAS FASTINGP ERFORMED BY: [facility] Drofan[address] RoadDublin [place] [id number] Erythrocyte distribution width (RBC) [Ratio] 12.7 % Normal 11.6-15.4 [facility]; [facility] Work Phone: Comment on above: PATIENT WAS FASTINGP ERFORMED BY: CB [facility] Jqkehl55[address]Dublin [place] [id number] Hematocrit (Bld) [Volume fraction] 41.6 % Normal 37.5-51.0 [facility]; [facility] Work Phone: Comment on above: PATIENT WAS FASTINGP ERFORMED BY: CB [facility] Lltvyr[address]Dublin [place] [id number] Hemoglobin (Bld) [Mass/Vol] 14.2 g/dL Normal 13.0-17.7 [facility]; [facility] Work Phone: Comment on above: PATIENT WAS FASTINGP ERFORMED BY: Puma Leccrq[address] [facility] [place] [id number] Immature granulocytes (Bld) [#/Vol] 0.0 10*3/uL Normal 0.0-0.1 [facility]; [facility] Work Phone: Comment on above: PATIENT WAS FASTINGP ERFORMED BY: [facility] [facility]in [place] [id number] Immature granulocytes/100 WBC (Bld) 1 % Normal [facility]; [facility] Work Phone: Comment on above: PATIENT WAS FASTINGP ERFORMED BY: [facility] Onkecc[address] [facility] [id number] Lymphocytes (Bld) [#/Vol] 0.6 10*3/uL Abnormal 0.7-3.1 [facility]; [facility] Work Phone: Comment on above: PATIENT WAS FASTINGP ERFORMED BY: [facility]6[address] [facility] [id number] Lymphocytes/100 WBC (Bld) 15 % Normal [facility]; [facility] Work Phone: Comment on above: PATIENT WAS FASTINGP ERFORMED BY: [facility]6[address] [facility] [id number] MCH (RBC) [Entitic mass] 31.1 pg Normal 26.6-33.0 [facility]; [facility] Work Phone: Comment on above: PATIENT WAS FASTINGP ERFORMED BY: Lab[facility] [facility]in [place] [id number] MCHC (RBC) [Mass/Vol] 34.1 g/dL Normal 31.5-35.7 [facility] prehensive Internal Medicine; [facility] Work Phone: Comment on above: PATIENT WAS FASTINGP ERFORMED BY: [facility] Pdoghl[address] [facility]in [place] [id number] MCV (RBC) [Entitic vol] 91 fL Normal 79-97 [facility]; [facility] Work Phone: Comment on above: PATIENT WAS FASTINGP ERFORMED BY: OMID [facility] Rxpoyn[address]Dublin [place] [id number] Monocytes (Bld) [#/Vol] 0.4 10*3/uL Normal 0.1-0.9 [facility]; [facility] Work Phone: Comment on above: PATIENT WAS FASTINGP ERFORMED BY: CB [facility] Alkyrh24[address]Dublin [place] [id number] Monocytes/100 WBC (Bld) 10 % Normal [facility]; [facility] Work Phone: Comment on above: PATIENT WAS FASTINGP ERFORMED BY: CB [facility] Wwlbnd4894 [address]Dublin [place] [id number] Neutrophils (Bld) [#/Vol] 2.8 10*3/uL Normal 1.4-7.0 [facility]; [facility] Work Phone: Comment on above: PATIENT WAS FASTINGP ERFORMED BY: CB [facility] Idyjgb8[address]Dublin [place] [id number] Neutrophils/100 WBC (Bld) 71 % Normal [facility]; [facility] Work Phone: Comment on above: PATIENT WAS FASTINGP ERFORMED BY: CB [facility] Yxuykm[address]Dublin [place] [id number] Platelets (Bld) [#/Vol] 189 10*3/uL Normal 150-450 [facility]; [facility] Work Phone: Comment on above: PATIENT WAS FASTINGP ERFORMED BY: CB [facility] Fitnpc50[address] RoadDublin [place] [id number] RBC (Bld) [#/Vol] 4.57 10*6/uL Normal 4.14-5.80 [facility]; [facility] Work Phone: Comment on above: PATIENT WAS FASTINGP ERFORMED BY: CB [facility] Ldmvkn16[address] RoadDublin [place] [id number] WBC (Bld) [#/Vol] 3.8 10*3/uL Normal 3.4-10.8 [facility]; [facility] Work Phone: Comment on above: PATIENT WAS FASTINGP ERFORMED BY: OMID Labzenaida Martinez[address] GreenElectric Power Corpblin [place] [id number] INHOUSE Rapid Covid/ Flu A/ Flu Bon 02-23-2021 SARS-CoV-2 (COVID-19) RNA CASSIDY+probe Ql (Unsp spec) Positive Normal [facility]; [facility] Work Phone: Iron Binding Capacity (TIBC) (66046)Ordered By: Recreation Center Director on 12-01-2020 Iron [Mass/Vol] 78 ug/dL Normal 38-169 Comprehen [facility]; [facility] Work Phone: Comment on above: PATIENT NOT FASTINGP ERFORMED BY: OMID LabCo Fcfdil[address] GreenElectric Power Corpformerly [facility] [id number] Iron binding capacity [Mass/Vol] 284 ug/dL Normal 250-450 [facility]; [facility] Work Phone: Comment on above: PATIENT NOT FASTINGP ERFORMED BY: OMID [facility] Jgbwrm[address] GreenElectric Power Corpblin [place] [id number] Iron binding capacity.unsaturated [Mass/Vol] 206 ug/dL Normal 111-343 [facility]; [facility] Work Phone: Comment on above: PATIENT NOT FASTINGP ERFORMED BY: OMID [facility] Ingbpv[address] GreenElectric Power Corpin [place] [id number] Iron saturation [Mass fraction] 27 % Normal 15-55 [facility]; [facility] Work Phone: Comment on above: PATIENT NOT FASTINGP ERFORMED BY: OMID [facility] Olrjkm[address] GreenElectric Power Corpblin [place] [id number] Urinalysis, Office (75063)on 12-01-2020 Bilirubin Ql (U) Negative Normal Comprehe nsive Internal Medicine; [facility] Work Phone: Glucose Test strip (U) [Mass/Vol] Negative Normal [facility]; [facility] Work Phone: Hemoglobin Ql (U) ++ Abnormal Compreh ensive [facility]; [facility] Work Phone: Ketones Ql (U) Negative Normal [facility] [place] [facility]; [facility] Work Phone: Leukocyte esterase Test strip Ql (U) Negative Normal [facility]; [facility] Work Phone: Nitrite Ql (U) Negative Normal [facility] [facility]; [facility] Work Phone: pH (U) 7 [pH] Normal [facility]; [facility] Work Phone: Protein Ql (U) Negative Normal [facility] [facility]; [facility] Work Phone: Specific gravity (U) [Rel density] 1.015 1 Normal [facility]; [facility] Work Phone: Urobilinogen (24H U) [Mass/Time] Normal Normal [facility]; [facility] Work Phone: Urinalysis, Office (07101)Or dered By: Bhargav Valero on 07-06-2020 Bilirubin Ql (U) Negative Normal Comprehe nsive [facility]; [facility] Work Phone: Glucose Test strip (U) [Mass/Vol] Negative Normal [facility]; [facility] Work Phone: Hemoglobin Ql (U) Negative Normal Compreh ensive [facility]; [facility] Work Phone: Ketones Ql (U) Negative Normal Comprehens [place] [facility]; [facility] Work Phone: Leukocyte esterase Test strip Ql (U) Negative Normal [facility]; [facility] Work Phone: Nitrite Ql (U) Negative Normal [facility] [place] [facility]; [facility] Work Phone: pH (U) 5 [pH] Abnormal [facility]; [facility] Work Phone: Protein Ql (U) Negative Normal Comprehens [place] [facility]; [facility] Work Phone: Specific gravity (U) [Rel density] 1.015 1 Normal [facility]; [facility] Work Phone: Urobilinogen (24H U) [Mass/Time] Normal Normal [facility]; [facility] Work Phone: Troponin I (69528)Ordered By : Recreation Center Director on 12-29-2019 Troponin I.cardiac [Mass/Vol] ng/mL Normal 0.00-0.04 [facility] Work Phone: Comment on above: today; PATIENT NOT F ASTINGPERFORMED BY: Book A BoatAtlantiCare Regional Medical Center, Atlantic City CampusAmvblt[address] [place] BioTherapeuticsAtrium Health [id number] Troponin I.cardiac [Mass/Vol] ng/mL Normal 0.00-0.04 [facility]; [facility] Work Phone: Comment on above: today; PATIENT NOT F ASTINGPERFORMED BY: Book A BoatAtlantiCare Regional Medical Center, [facility] CampusHtkeev[address] GreenElectric Power Corpformerly [facility] [id number] Methymalonic Acid, Serum (83 921)Ordered By: Recreation Center Director on 11-19-2019 Methylmalonate [Moles/Vol] 72 nmol/L Normal 0-378 [facility] Work Phone: Comment on above: today; Test(s) 52255 4-LDL-P; 816363-WST-F; 564160- Triglycerides; 226662-Hdrsbpwpnig, Total; 368749-QYL-E (Total); 508047-Uudml LDL-P; 416807-OEL Size; 268631-LW-TD Scorewas developed and its performance characteristics determinedby [employer]. It has not been cleared or approved by the Foodand Drug Administration.A duplicate report has been generated due to demographic updates.PATIENT NOT FASTINGPERFORMED BY: [place] [address] [facility] [id number] BY: Book A BoatAtlantiCare Regional Medical Center, [facility] CampusApgcjx5564 [facility] [id number] Methymalonic Acid, Serum (22751) SPRCS Normal [facility] Work Phone: Comment on above: This test was develo ped and its performance characteristicsdetermined by [employer] ([employer]). It has not been cleared or approvedby the Food and Drug Administration. today; Test(s) 38408 4-LDL-P; 552950-VJF-G; 357857-Bwmmsoyorgpzz; 953227-Khgjgjdcolc, Total; 130519-VYQ-A (Total); 154275-Kzxuf LDL-P; 417677-ILY Size; 570036-OI-GP Scorewas developed and its performance characteristics determinedby [employer] ([employer]). It has not been cleared or approved by the Foodand Drug Administration.A duplicate report has been generated due to demographic updates.PATIENT NOT FASTINGPERFORMED BY: [employer] [address] [id number] BY: SANDOW70 [address] [facility] [id number] NMR Profile (57714)Ordered B y: Recreation Center Director on 11-19-2019 Cholesterol [Mass/Vol] 187 mg/dL Normal 100-199 [facility] Work Phone: Comment on above: in six months (appro ximately); Test(s) 957839-MXW-Y; 064085-HUN-Z; 947879-Fushjzlvkuokc; 966154-Bwvwkaotqwh, Total; 168733-TSY-H (Total); 267912-Rklox LDL-P; 858479-TNO Size; 827906-ST-JP Scorewas developed and its performance characteristics determinedby [employer] ([employer]). It has not been cleared or approved by the Foodand Drug Administration.A duplicate report has been generated due to demographic updates.PATIENT NOT FASTINGPERFORMED BY: [employer] ([employer]) Udkoouaqby3483 [facility] [id number] BY: [employer] Wcibwi7915 [facility] [id number] Information: BILLING TYPE CHANGED PER PRADEEP GILLESPIE 11/25/19 Lipoprotein.alpha [Moles/Vol] 30.9 umol/L Normal [facility] Work Phone: Comment on above: in six months (appro ximately); Test(s) 391291-IRZ-U; 319916-EEN-I; 020733-Xwkvekusapiae; 156516-Rfhlxsqtwzl, Total; 910340-SGQ-Z (Total); 630627-Dopvj LDL-P; 605906-ACN Size; 560710-SH-DT Scorewas developed and its performance characteristics determinedby [employer] ([employer]). It has not been cleared or approved by the Foodand Drug Administration.A duplicate report has been generated due to demographic updates.PATIENT NOT FASTINGPERFORMED BY: BN [facility] Mygshrqmfl2227 [facility] [id number] BY: CB [facility] Qedlzf3812 [facility] [id number] Information: BILLING TYPE CHANGED PER PRADEEP GILLESPIE 11/25/19 Lipoprotein.beta.subp article [Entitic length] 19.7 nm Abnormal [facility] Work Phone: Comment on above: INTERPRETATIVE INFORMATION PARTICLE CONCENTRATION AND SIZE <--Lower CVD Risk Higher CVD Risk--> LDL AND HDL PARTICLES Percentile in Reference Population HDL-P (total) High 75th 50th 25th Low >34.9 34.9 30.5 26.7 <26.7 . Small LDL-P Low 25th 50th 75th High <117 117 527 839 >839 . LDL Size <-Large (Pattern A)-> <-Small (Pattern B)-> 23.0 20.6 20.5 19.0 Small LDL-P and LDL Size are associated with CVD risk, but not afterLDL-P is taken into account. in six months (appro ximately); Test(s) 312606-PJS-P; 589144-FUS-E; 858951-Lszemrtnhrdio; 833730-Dhjdzmzwxvl, Total; 404241-FUP-L (Total); 837358-Mmlsa LDL-P; 853996-JBR Size; 841266-ZO-AA Scorewas developed and its performance characteristics determinedby [employer] ([employer]). It has not been cleared or approved by the Foodand Drug Administration.A duplicate report has been generated due to demographic updates.PATIENT NOT FASTINGPERFORMED BY: [employer] Boat[address] [id number] BY: Book A BoatMichael Ville [id number] [facility] [id number] Information: [facility] Lipoprotein.beta.subp article [Moles/Vol] 1841 nmol/L Abnormal Comprehens[facility] e [facility] Work Phone: Comment on above: Low < 1000 Moderate 1000 - 1299 Borderline-High 1300 - 1599 High 1600 - 2000 Very High > 2000 in six months (appro ximately); Test(s) 862991-RMN-O; 886759-BOK-I; 027376-Ztctzqvreqllm; 526736-Jnrzumqdgmy, Total; 651297-XUC-X (Total); 624539-Holef LDL-P; 797915-ZNR Size; 083554-UE-EV Scorewas developed and its performance characteristics determinedby [employer] ([employer]). It has not been cleared or approved by the Foodand Drug Administration.A duplicate report has been generated due to demographic updates.PATIENT NOT FASTINGPERFORMED BY: Book A Boat[address] [id number] BY: CHIC.TVMckenzie Memorial Hospital6370 [facility] [id number] Information: BILLING TYPE CHANGED PER [employer] 11/25/19 Lipoprotein.beta.subp article.small [Moles/Vol] 1528 nmol/L Abnormal [facility] Work Phone: Comment on above: in six months (appro ximately); Test(s) 860031-MZR-C; 992043-FUL-N; 755122-Ovylelrkgssva; 709594-Rngkdgdzhzx, Total; 446134-SEH-M (Total); 754355-Foqjk LDL-P; 184158-KIT Size; 490070-PK-UV Scorewas developed and its performance characteristics determinedby Mixed [employer] (MX[employer]). It has not been cleared or approved by the Foodand Drug Administration.A duplicate report has been generated due to demographic updates.PATIENT NOT FASTINGPERFORMED BY: Book A Boat[address] [id number] BY: Book A BoatAtlantiCare Regional Medical Center, Atlantic City CampusTlgrwy4570 [facility] [id number] Information: BILLING TYPE CHANGED PER [facility] 11/25/19 Triglyceride [Mass/Vol] 200 mg/dL Abnormal 0-149 [facility] Work Phone: Comment on above: in six months (appro ximately); Test(s) 360284-GJX-F; 357928-YCP-C; 257496-Dyaliyvhwdord; 782377-Syfwegnazub, Total; 053074-TDJ-U (Total); 337952-Biznu LDL-P; 434312-QLT Size; 810679-YR-GL Scorewas developed and its performance characteristics determinedby [employer] ([employer]). It has not been cleared or approved by the Foodand Drug Administration.A duplicate report has been generated due to demographic updates.PATIENT NOT FASTINGPERFORMED BY: Book A Boat[address] [id number] BY: Book A BoatAtlantiCare Regional Medical Center, [facility] [place] CampusIpxeei3146 [facility] [id number] Information: BILLING TYPE CHANGED PER [facility] 11/25/19 NMR Profile (73510) 36 mg/dL Abnormal [facility] Work Phone: Comment on above: in six months (appro ximately); Test(s) 963818-OXT-J; 471315-DPS-K; 569001-Eputaikegzyvw; 056749-Ohfxmlpuxsg, Total; 091393-PKV-J (Total); 515434-Bpmin LDL-P; 293630-RYT Size; 281474-VT-ST Scorewas developed and its performance characteristics determinedby [employer] ([employer]). It has not been cleared or approved by the Foodand Drug Administration.A duplicate report has been generated due to demographic updates.PATIENT NOT FASTINGPERFORMED BY: [employer] Dxireyrkpc8506 [facility] [id number] BY: Book A BoatAtlantiCare Regional Medical Center, [facility] [place] CampusQrtxhk7224 [facility] [id number] Information: BILLING TYPE CHANGED PER [facility] 11/25/19 NMR Profile (92248) 116 mg/dL Abnormal 0-99 [facility] Work Phone: Comment on above: . Optimal < 100 Abov e optimal 100 - 129 Borderline 130 - 159 High 160 - 189 Very high > 189 . in six months (appro ximately); Test(s) 927784-ZXE-T; 954365-EFT-G; 860323-Fjrddgpdgmiqm; 802980-Bnkdmzvpvkc, Total; 304309-UVF-F (Total); 244947-Vnqbj LDL-P; 466020-SFY Size; 961429-NU-FH Scorewas developed and its performance characteristics determinedby [employer] ([employer]). It has not been cleared or approved by the Foodand Drug Administration.A duplicate report has been generated due to demographic updates.PATIENT NOT FASTINGPERFORMED BY: [employer] [id number] [facility] [id number] BY: Book A BoatAtlantiCare Regional Medical Center, [facility] [place] CampusBbycog4660 [facility] [id number] Information: BILLING TYPE CHANGED PER [facility] 11/25/19 Vitamin B-12 (cyanocobalamin ) (24278)Ordered By: Recreation Center Director on 11-19-2019 Cobalamin (Vitamin B12) [Mass/Vol] 1222 pg/mL Normal 232-1245 [facility] Work Phone: Comment on above: today; Test(s) 96203 4-LDL-P; 938488-MYM-I; 388351- Triglycerides; 996825-Iixlqnviter, Total; 756004-DKN-J (Total); 398871-Hkrcd LDL-P; 544342-ADN Size; 240179-IX-XN Scorewas developed and its performance characteristics determinedby [employer] ([employer]). It has not been cleared or approved by the Foodand Drug Administration.A duplicate report has been generated due to demographic updates.PATIENT NOT FASTINGPERFORMED BY: CH[facility].TVSal[facility]1447 [facility] [id number] BY: Book A Boat Kymozg7427 [facility] [id number] HEPATITIS C ANTIBODY (25918) Ordered By: Recreation Center Director on 11-03-2019 HCV Ab Signal/Cutoff IA [Rel units/Vol] 0.1 {s/co_ratio} Normal 0.0-0.9 Comprehens[facility] e [facility] Work Phone: Comment on above: Negative: < 0.8 Inde terminate: 0.8 - 0.9 Positive: > 0.9 . The CDC recommends that a positive HCV antibody result be followed up with a HCV Nucleic Acid Amplification test (495403). PATIENT NOT FASTINGP ERFORMED BY: [employer] Joss Technologyformerly [facility] [id number] Information: NURSE DRAW PSA (Prostate Specific Antig en), Screening (96376)Ordered By: Recreation Center Director on 11-03-2019 Prostate specific Ag [Mass/Vol] 2.9 ng/mL Normal 0.0-4.0 [facility] Work Phone: Comment on above: Margaret ECLIA methodol ogy. .According to the [place] [employer], Serum PSA shoulddecrease and remain at undetectable levels after radicalprostatectomy. The AUA defines biochemical recurrence as an initialPSA value 0.2 ng/mL or greater followed by a subsequent confirmatoryPSA value 0.2 ng/mL or greater.Values obtained with different assay methods or kits cannot be usedinterchangeably. Results cannot be interpreted as absolute evidenceof the presence or absence of malignant disease. PATIENT NOT FASTINGP ERFORMED BY: Book A Boat Mzabzl9589 [facility] [id number] Information: NURSE DRAW Sed Rate Erythrocyte (17386) Ordered By: Recreation Center Director on 09-10-2019 ESR (Bld) [Velocity] 2 mm/h Normal 0-30 Comp rehensive Internal Medicine Work Phone: Comment on above: PATIENT NOT FASTINGP ERFORMED BY: Book A Boat Qlvjmd8920 [place] [facility] [id number] Vital Signs Date Time Vital Sign Value Performing Clinician Facility 12-15-2024 09:34-0400 Diastolic blood pressure 81 mm[Hg] Flora Browning MD Work Phone: [facility] 12-15-2024 09:34-0400 Heart rate 54 /min Flora Browning MD Work Phone: [facility] 12-15-2024 09:34-0400 Systolic blood pressure 135 mm[Hg] Flora Browning MD Work Phone: [facility] 12-15-2024 09:05-0400 Body height 185.4 cm Flora Browning MD Work Phone: [facility] 12-15-2024 09:05-0400 Body mass index (BMI) [Ratio] 27.05 kg/m2 Flora Browning MD Work Phone: [facility] 12-15-2024 09:05-0400 Body temperature 98.4 [degF] Flora Browning MD Work Phone: [facility] 12-15-2024 09:05-0400 Body weight 92.99 kg Flora Browning MD Work Phone: [facility] 12-09-2024 10:25-0400 Body height 185.4 cm Brian Preston Jr., PA-C Work Phone: [facility] 12-09-2024 10:25-0400 Body mass index (BMI) [Ratio] 27.05 kg/m2 Brian Preston Jr., PA-C Work Phone: [facility] 12-09-2024 10:25-0400 Body temperature 97.5 [degF] Brian Preston Jr., PA-C Work Phone: [facility] 12-09-2024 10:25-0400 Body weight 92.99 kg Brian Preston Jr., PA-C Work Phone: [facility] 12-09-2024 10:25-0400 Heart rate 55 /min ANGELY Benton Jr.-C Work Phone: [facility] 12-09-2024 10:25-0400 SaO2% (BldA) [Mass fraction] 97 % Brian Preston Jr. PA-C Work Phone: [facility] 11-16-2024 10:03-0400 Body height 185.4 cm Brian Preston Jr. PA-C Work Phone: [facility] 11-16-2024 10:03-0400 Body mass index (BMI) [Ratio] 26.52 kg/m2 Brian Preston Jr. PA-C Work Phone: [facility] 11-16-2024 10:03-0400 Body temperature 97.9 [degF] ANGELY Benton Jr.-C Work Phone: [facility] 11-16-2024 10:03-0400 Body weight 91.17 kg ANGELY Benton Jr.-C Work Phone: [facility] 11-16-2024 10:03-0400 Heart rate 51 /min Brian Preston Jr. PA-C Work Phone: [facility] 11-16-2024 10:03-0400 SaO2% (BldA) [Mass fraction] 98 % Brian Preston Jr. PA-C Work Phone: [facility] 11-13-2024 08:10-0400 Body height 183 cm Moncho Bautista MD Work Phone: [facility] 11-13-2024 08:10-0400 Body height 182.88 cm Moncho Bautista MD Work Phone: [facility] 11-13-2024 08:10-0400 Body mass index (BMI) [Ratio] 27.36 kg/m2 Moncho Bautista MD Work Phone: [facility] 11-13-2024 08:10-0400 Body weight 91 kg Moncho Bautista MD Work Phone: [facility] 11-13-2024 08:10-0400 Body weight 91.17 kg Moncho Bautista MD Work Phone: [facility] 11-13-2024 08:10-0400 BP SITE #1 Moncho Bautista MD Work Phone: [facility] 11-13-2024 08:10-0400 Diastolic blood pressure 86 mm[Hg] Moncho Bautista MD Work Phone: [facility] 11-13-2024 08:10-0400 Heart rate 58 /min Moncho Bautista MD Work Phone: [facility] 11-13-2024 08:10-0400 HGHTCHNVIS Moncho Bautista MD Work Phone: [facility] 11-13-2024 08:10-0400 Systolic blood pressure 137 mm[Hg] Moncho Bautista MD Work Phone: [facility] 11-13-2024 08:10-0400 VITALSDONE Moncho Bautista MD Work Phone: [facility] 10-23-2024 14:14-0400 Body height 183 cm Deena Mulliganrough PA-C Work Phone: [facility] 10-23-2024 14:14-0400 Body height 182.88 cm Deena Maldonadorbrough PA-C Work Phone: [facility] 10-23-2024 14:14-0400 Body mass index (BMI) [Ratio] 27.36 kg/m2 Deena Roosevelt PA-C Work Phone: [facility] 10-23-2024 14:140400 Body weight 91 kg Deena Roosevelt PA-C Work Phone: [facility] 10-23-2024 14:140400 Body weight 91.17 kg Deena Roosevelt PA-C Work Phone: [facility] 10-23-2024 14:14-0400 BP SITE #1 Deena Roosevelt PA-C Work Phone: [facility] 10-23-2024 14:14-0400 Diastolic blood pressure 78 mm[Hg] Deena Roosevelt PA-C Work Phone: [facility] 10-23-2024 14:14-0400 HGHTCHNVIS Deena Roosevelt PA-C Work Phone: [facility] 10-23-2024 14:14-0400 Systolic blood pressure 129 mm[Hg] Deena Roosevelt PA-C Work Phone: [facility] 10-23-2024 14:14-0400 VITALSDONE Deena Roosevelt PA-C Work Phone: [facility] 05-06-2024 14:25-0400 Diastolic blood pressure 73 mm[Hg] Dr. Pradeep Gillespie MD Work Phone: [facility] 05-06-2024 14:25-0400 Heart rate 54 /min Dr. Pradeep Gillespie MD Work Phone: [facility] 05-06-2024 14:25-0400 Respiratory rate 18 /min Dr. Pradeep Gillespie MD Work Phone: [facility] 05-06-2024 14:25-0400 SaO2% (BldA) [Mass fraction] 98 % Dr. Pradeep Gillespie MD Work Phone: [facility] 05-06-2024 14:25-0400 Systolic blood pressure 166 mm[Hg] Dr. Pradeep Gillespie MD Work Phone: [facility] 05-06-2024 12:57-0400 Body height 185.[address] Pradeep Gillespie MD Work Phone: [facility] 05-06-2024 12:57-0400 Body mass index (BMI) [Ratio] 26.4 kg/m2 Dr. Pradeep Gillespie MD Work Phone: [facility] 05-06-2024 12:57-0400 Body weight 90.[address] Pradeep Gillespie MD Work Phone: [facility] 09-12-2023 14:16-0400 Body height 185.4 cm Cindy Taylor MD Work Phone: [facility] 09-12-2023 14:16-0400 Body mass index (BMI) [Ratio] 26.45 kg/m2 Cindy Taylor MD Work Phone: [facility] 09-12-2023 14:16-0400 Body weight 90.95 kg Cindy Taylor MD Work Phone: [facility] 10-27-2022 08:38-0400 Body temperature 97.59 [degF] Rayray Athy PA-C Work Phone: [facility] 10-27-2022 08:38-0400 Body weight 91.26 kg Rayray Athy PA-C Work Phone: [facility] 10-27-2022 08:38-0400 Diastolic blood pressure 74 mm[Hg] Rayray Athy PA-C Work Phone: [facility] 10-27-2022 08:38-0400 Heart rate 60 /min Rayray Athy PA-C Work Phone: [facility] 10-27-2022 08:38-0400 Respiratory rate 21 /min Rayray Athy PA-C Work Phone: [facility] 10-27-2022 08:38-0400 SaO2% (BldA) [Mass fraction] 100 % Rayray Hugo PA-C Work Phone: [facility] 10-27-2022 08:38-0400 Systolic blood pressure 130 mm[Hg] Rayray Hugo PA-C Work Phone: [facility] 06-26-2022 10:23-0400 Body height 185.42 cm Karishma Marcano LPN [facility]; [facility] Work Phone: 06-26-2022 10:23-0400 Body mass index (BMI) [Ratio] 25.86 kg/m2 Karishma Marcano LPN [facility]; [facility] Work Phone: 06-26-2022 10:23-0400 Body surface area Derived from formula 2.13 m2 Karishma Marcano LPN [facility]; [facility] Work Phone: 06-26-2022 10:23-0400 Body temperature 98.1 [degF] Karishma Marcano LPN [facility]; [facility] Work Phone: 06-26-2022 10:23-0400 Body weight 88.91 kg Karishma Marcano LPN [facility]; [facility] Work Phone: 06-26-2022 10:23-0400 Diastolic blood pressure 84 mm[Hg] Karishma Marcano LPN [facility]; [facility] Work Phone: Comment on above: Patient Position: Sitting; Cuff Location : Left Arm; Cuff Size: Standard 06-26-2022 10:23-0400 Heart rate 54 /min Karishma Marcano LPN [facility]; [facility] Work Phone: Comment on above: Pattern: Regular 06-26-2022 10:23-0400 Respiratory rate 16 /min Karishma Marcano LPN [facility]; [facility] Work Phone: Comment on above: Pattern: Unlabored 06-26-2022 10:23-0400 SaO2% (BldA) [Mass fraction] 98 % Karishma Marcano SABINE [facility]; [facility] Work Phone: Comment on above: Room air 06-26-2022 10:23-0400 Systolic blood pressure 130 mm[Hg] Karishma Marcano SABINE [facility]; [facility] Work Phone: Comment on above: Patient Position: Sitting; Cuff Location : Left Arm; Cuff Size: Standard 04-12-2022 10:15-0500 Body height 185.42 cm Karishma Marcano SABINE [facility]; [facility] Work Phone: 04-12-2022 10:15-0500 Body mass index (BMI) [Ratio] 25.86 kg/m2 Karishma Marcano SABINE [facility]; [facility] Work Phone: 04-12-2022 10:15-0500 Body surface area Derived from formula 2.13 m2 Karishmasteve Marcano SABINE [facility]; [facility] Work Phone: 04-12-2022 10:15-0500 Body temperature 98.1 [degF] Karishma Marcano SABINE [facility]; [facility] Work Phone: 04-12-2022 10:15-0500 Body weight 88.91 kg Karishma Marcano SABINE [facility]; [facility] Work Phone: 04-12-2022 10:15-0500 Diastolic blood pressure 90 mm[Hg] Karishmasteve Marcano SABINE [facility]; [facility] Work Phone: Comment on above: Patient Position: Sitting; Cuff Location : Left Arm; Cuff Size: Standard 04-12-2022 10:15-0500 Heart rate 61 /min Karishma Jeet SABINE [facility]; [facility] Work Phone: Comment on above: Pattern: Regular 04-12-2022 10:15-0500 Respiratory rate 16 /min Karishma Jeet SABINE [facility]; [facility] Work Phone: Comment on above: Pattern: Unlabored 04-12-2022 10:15-0500 SaO2% (BldA) [Mass fraction] 98 % Karishma Marcano RN [facility]; [facility] Work Phone: Comment on above: Room air 04-12-2022 10:15-0500 Systolic blood pressure 138 mm[Hg] Karishma Marcano RN [facility]; [facility] Work Phone: Comment on above: Patient Position: Sitting; Cuff Location : Left Arm; Cuff Size: Standard 03-26-2022 10:38-0500 Body height 185.42 cm Marisela Slarb RN [facility]; [facility] Work Phone: 03-26-2022 10:38-0500 Body mass index (BMI) [Ratio] 25.86 kg/m2 Marisela Slarb RN [facility]; [facility] Work Phone: 03-26-2022 10:38-0500 Body surface area Derived from formula 2.13 m2 Marisela Slarb RN [facility]; [facility] Work Phone: 03-26-2022 10:38-0500 Body temperature 98.4 [degF] Marisela Slarb RN [facility]; [facility] Work Phone: Comment on above: Method: Temporal 03-26-2022 10:38-0500 Body weight 88.91 kg Marisela Slarb RN [facility]; [facility] Work Phone: 03-26-2022 10:38-0500 Diastolic blood pressure 80 mm[Hg] Marisela Slarb RN [facility]; [facility] Work Phone: Comment on above: Patient Position: Sitting; Cuff Location : Left Arm; Cuff Size: Standard 03-26-2022 10:38-0500 Heart rate 63 /min Marisela Slarb RN [facility]; [facility] Work Phone: Comment on above: Pattern: Regular 03-26-2022 10:38-0500 Respiratory rate 17 /min Marisela Slarb RN [facility]; [facility] Work Phone: Comment on above: Pattern: Unlabored 03-26-2022 10:38-0500 SaO2% (BldA) [Mass fraction] 98 % Marisela Slawes REGALADO [facility]; [facility] Work Phone: Comment on above: Room air 03-26-2022 10:38-0500 Systolic blood pressure 120 mm[Hg] Marisela Villalba SABINE [facility]; [facility] Work Phone: Comment on above: Patient Position: Sitting; Cuff Location : Left Arm; Cuff Size: Standard 02-13-2022 12:41-0500 Body height 185.42 cm Karishmasteve Mattabrianna REGALADO [facility]; [facility] Work Phone: 02-13-2022 12:41-0500 Body mass index (BMI) [Ratio] 25.86 kg/m2 Karsihma Jeet LPN [facility]; [facility] Work Phone: 02-13-2022 12:41-0500 Body surface area Derived from formula 2.13 m2 Karishmasteve Mattabrianna REGALADO [facility]; [facility] Work Phone: 02-13-2022 12:41-0500 Body temperature 97.9 [degF] Karishmasteve Marcano SABINE [facility]; [facility] Work Phone: 02-13-2022 12:41-0500 Body weight 88.91 kg Karishma Marcano LPN [facility]; [facility] Work Phone: 02-13-2022 12:41-0500 Diastolic blood pressure 82 mm[Hg] Karishmasteve Marcano SABINE [facility]; [facility] Work Phone: Comment on above: Patient Position: Sitting; Cuff Location : Left Arm; Cuff Size: Standard 02-13-2022 12:41-0500 Heart rate 52 /min Karishma Jeet LPN [facility]; [facility] Work Phone: Comment on above: Pattern: Regular 02-13-2022 12:41-0500 Respiratory rate 16 /min Karishma Jeet LPN [facility]; [facility] Work Phone: Comment on above: Pattern: Unlabored 02-13-2022 12:41-0500 SaO2% (BldA) [Mass fraction] 97 % Karishma Marcano LPN [facility]; [facility] Work Phone: Comment on above: Room air 02-13-2022 12:41-0500 Systolic blood pressure 130 mm[Hg] Karishma Marcano LPN [facility]; [facility] Work Phone: Comment on above: Patient Position: Sitting; Cuff Location : Left Arm; Cuff Size: Standard 01-25-2022 07:08-0500 Body height 185.42 cm Fidelia Abarca MA [facility]; [facility] Work Phone: 01-25-2022 07:08-0500 Body mass index (BMI) [Ratio] 25.86 kg/m2 Fidelia Abarca MA [facility]; [facility] Work Phone: 01-25-2022 07:08-0500 Body surface area Derived from formula 2.13 m2 Fidelia Abarca MA [facility]; [facility] Work Phone: 01-25-2022 07:08-0500 Body temperature 96.9 [degF] Fidelia Abarca MA [facility]; [facility] Work Phone: 01-25-2022 07:08-0500 Body weight 88.91 kg Fidelia Abarca MA [facility]; [facility] Work Phone: 01-25-2022 07:08-0500 Diastolic blood pressure 80 mm[Hg] Fidelia Abarca MA [facility]; [facility] Work Phone: Comment on above: Patient Position: Sitting; Cuff Location : Left Arm; Cuff Size: Standard 01-25-2022 07:08-0500 Heart rate 57 /min Fidelia Abarca MA [facility]; [facility] Work Phone: Comment on above: Pattern: Regular 01-25-2022 07:08-0500 Respiratory rate 18 /min Fidelia Abarca MA [facility]; [facility] Work Phone: Comment on above: Pattern: Unlabored 01-25-2022 07:08-0500 SaO2% (BldA) [Mass fraction] 98 % Fidelia Abarca MA [facility]; [facility] Work Phone: Comment on above: Room air 01-25-2022 07:08-0500 Systolic blood pressure 110 mm[Hg] Fidelia Abarca MA [facility]; [facility] Work Phone: Comment on above: Patient Position: Sitting; Cuff Location : Left Arm; Cuff Size: Standard 12-01-2020 06:59-0400 Body height 185.42 cm IAN Olguin LPN [facility]; [facility] Work Phone: 12-01-2020 06:59-0400 Body mass index (BMI) [Ratio] 25.86 kg/m2 IAN Olguin LPN [facility]; [facility] Work Phone: 12-01-2020 06:59-0400 Body surface area Derived from formula 2.13 m2 IAN Olguin LPN [facility]; [facility] Work Phone: 12-01-2020 06:59-0400 Body temperature 97.4 [degF] IAN Olguin LPN [facility]; [facility] Work Phone: Comment on above: Method: Temporal 12-01-2020 06:59-0400 Body weight 88.91 kg IAN Olguin LPN [facility]; [facility] Work Phone: 12-01-2020 06:59-0400 Diastolic blood pressure 80 mm[Hg] IAN Olguin LPN [facility]; [facility] Work Phone: Comment on above: Patient Position: Sitting; Cuff Location : Left Arm; Cuff Size: Standard 12-01-2020 06:59-0400 Heart rate 74 /min IAN Olguin LPN [facility]; [facility] Work Phone: Comment on above: Pattern: Regular 12-01-2020 06:59-0400 Respiratory rate 18 /min IAN Olguin LPN [facility]; [facility] Work Phone: Comment on above: Pattern: Unlabored 12-01-2020 06:59-0400 SaO2% (BldA) [Mass fraction] 98 % IAN Olguin LPN [facility]; [facility] Work Phone: Comment on above: Room air 12-01-2020 06:59-0400 Systolic blood pressure 122 mm[Hg] IAN Olguin LPN [facility]; [facility] Work Phone: Comment on above: Patient Position: Sitting; Cuff Location : Left Arm; Cuff Size: Standard 07-06-2020 14:04-0400 Body height 185.42 cm Bhargav Valero LPN [facility]; [facility] Work Phone: Comment on above: failed color blind test 07-06-2020 14:04-0400 Body mass index (BMI) [Ratio] 27.05 kg/m2 Bhargav Valero LPN [facility]; [facility] Work Phone: Comment on above: failed color blind test 07-06-2020 14:04-0400 Body surface area Derived from formula 2.17 m2 Bhargav Valero LPN [facility]; [facility] Work Phone: Comment on above: failed color blind test 07-06-2020 14:04-0400 Body temperature 97.3 [degF] Bhargav Valero LPN [facility] Work Phone: Comment on above: Method: Infrared failed color blind t est 07-06-2020 14:04-0400 Body weight 93 kg Bhargav Valero LPN [facility]; [facility] Work Phone: Comment on above: failed color blind test 07-06-2020 14:04-0400 Diastolic blood pressure 78 mm[Hg] Bhargav Valero LPN [facility]; [facility] Work Phone: Comment on above: Patient Position: Sitting; Cuff Location : Left Arm; Cuff Size: Standard failed color blind t est 07-06-2020 14:04-0400 Heart rate 60 /min Bhargav Valero LPN [facility]; [facility] Work Phone: Comment on above: Pattern: Regular failed color blind t est 07-06-2020 14:04-0400 Respiratory rate 16 /min Bhargav Valero LPN [facility]; [facility] Work Phone: Comment on above: Pattern: Unlabored failed color blind t est 07-06-2020 14:04-0400 SaO2% (BldA) [Mass fraction] 95 % Bhargav Valero LPN [facility]; [facility] Work Phone: Comment on above: Room air failed color blind t est 07-06-2020 14:04-0400 Systolic blood pressure 124 mm[Hg] Bhargav Valero LPN [facility]; [facility] Work Phone: Comment on above: Patient Position: Sitting; Cuff Location : Left Arm; Cuff Size: Standard failed color blind t est 05-26-2020 07:36-0400 BMI (Body Mass Index) 27.05 kg/m2 IAN Olguin LPN [facility]; [facility] Work Phone: 05-26-2020 07:36-0400 Body Temperature 97.9 [degF] IAN Olguin LPN [facility]; [facility] Work Phone: Comment on above: Method: Temporal 05-26-2020 07:36-0400 Body weight 93.01 kg IAN Olguin LPN [facility]; [facility] Work Phone: 05-26-2020 07:36-0400 BP Diastolic 78 mm[Hg] IAN Olguin LPN [facility]; [facility] Work Phone: Comment on above: Patient Position: Sitting; Cuff Location : Left Arm; Cuff Size: Standard 05-26-2020 07:36-0400 BP Systolic 120 mm[Hg] IAN Olguin LPN [facility]; [facility] Work Phone: Comment on above: Patient Position: Sitting; Cuff Location : Left Arm; Cuff Size: Standard 05-26-2020 07:36-0400 BSA (Body Surface Area) 2.17 m2 IAN Olguin LPN [facility]; [facility] Work Phone: 05-26-2020 07:36-0400 Height 185.42 cm IAN Olguin SABINE [facility]; [facility] Work Phone: 05-26-2020 07:36-0400 Pulse (Heart Rate) 59 /min IAN Olguin SABINE [facility]; [facility] Work Phone: Comment on above: Pattern: Regular 05-26-2020 07:36-0400 Pulse Oximetry 98 % Pradeep Gillespie [facility]; [facility] Work Phone: Comment on above: Room air 05-26-2020 07:36-0400 Respiratory Rate 20 /min IAN Olguin SABINE [facility]; [facility] Work Phone: Comment on above: Pattern: Unlabored 05-26-2020 07:36-0400 SaO2% (BldA) [Mass fraction] 98 % IAN Olguin SABINE [facility]; [facility] Work Phone: Comment on above: Room air 02-25-2020 08:46-0500 BMI (Body Mass Index) 27.18 kg/m2 IAN Sharif REGALADO [facility]; [facility] Work Phone: 02-25-2020 08:46-0500 Body Temperature 97.9 [degF] IAN Olguin SABINE [facility] Work Phone: Comment on above: Method: Temporal 02-25-2020 08:46-0500 Body weight 93.44 kg IAN Olguin SABINE [facility]; [facility] Work Phone: 02-25-2020 08:46-0500 BP Diastolic 76 mm[Hg] IAN Olguin LPN [facility]; [facility] Work Phone: Comment on above: Patient Position: Sitting; Cuff Location : Left Arm; Cuff Size: Large 02-25-2020 08:46-0500 BP Systolic 114 mm[Hg] IAN Olguin LPN [facility]; [facility] Work Phone: Comment on above: Patient Position: Sitting; Cuff Location : Left Arm; Cuff Size: Large 02-25-2020 08:46-0500 BSA (Body Surface Area) 2.18 m2 IAN Olguin LPN [facility]; [facility] Work Phone: 02-25-2020 08:46-0500 Height 185.42 cm IAN Olguin LPN [facility]; [facility] Work Phone: 02-25-2020 08:46-0500 Pulse (Heart Rate) 70 /min IAN Sharif SABINE [facility]; [facility] Work Phone: Comment on above: Pattern: Regular 02-25-2020 08:46-0500 Pulse Oximetry 98 % Pradeep Gillespie [facility]; [facility] Work Phone: Comment on above: Room air 02-25-2020 08:46-0500 Respiratory Rate 20 /min IAN Olguin LPN [facility]; [facility] Work Phone: Comment on above: Pattern: Unlabored 02-25-2020 08:46-0500 SaO2% (BldA) [Mass fraction] 98 % IAN Olguin LPN [facility]; [facility] Work Phone: Comment on above: Room air 11-19-2019 06:52-0400 BMI (Body Mass Index) 25.73 kg/m2 IAN Olguin LPN [facility] Work Phone: 11-19-2019 06:52-0400 Body weight 88.46 kg IAN Sharif SABINE [facility] Work Phone: 11-19-2019 06:52-0400 BSA (Body Surface Area) 2.13 m2 IAN Olguin LPN [facility] Work Phone: 11-19-2019 06:52-0400 Height 185.42 cm IAN Olguin LPN [facility] Work Phone: 09-10-2019 09:57-0400 BMI (Body Mass Index) 26.78 kg/m2 IAN Olguin LPN [facility] Work Phone: 09-10-2019 09:57-0400 Body Temperature 97.9 [degF] IAN Olguin LPN [facility] Work Phone: Comment on above: Method: Temporal 09-10-2019 09:57-0400 Body weight 92.08 kg INA Olguin LPN [facility] Work Phone: 09-10-2019 09:57-0400 BP Diastolic 80 mm[Hg] IAN Olguin LPN [facility] Work Phone: Comment on above: Patient Position: Sitting; Cuff Location : Left Arm; Cuff Size: Large 09-10-2019 09:57-0400 BP Systolic 126 mm[Hg] IAN Olguin LPN [facility] Work Phone: Comment on above: Patient Position: Sitting; Cuff Location : Left Arm; Cuff Size: Large 09-10-2019 09:57-0400 BSA (Body Surface Area) 2.17 m2 IAN Olguin SABINE [facility] Work Phone: 09-10-2019 09:57-0400 Height 185.42 cm IAN Olguin LPN [facility] Work Phone: 09-10-2019 09:57-0400 Pulse (Heart Rate) 76 /min IAN Olguin LPN [facility] Work Phone: Comment on above: Pattern: Regular 09-10-2019 09:57-0400 Pulse Oximetry 97 % Pradeep Gillespie [facility] Work Phone: Comment on above: Room air 09-10-2019 09:57-0400 Respiratory Rate 20 /min IAN Olguin LPN [facility] Work Phone: Comment on above: Pattern: Unlabored 09-10-2019 09:57-0400 SaO2% (BldA) [Mass fraction] 97 % IAN Olguin LPN [facility] Work Phone: Comment on above: Room air Encounters Encounter Date Encounter Type Care Provider Facility Start: 12-15-2024 End: 12-15-2024 Patient encounter procedure Flora Browning MD Work Phone: [facility] Comment on above: Spondylolisthesis, g rade 1 (Primary Dx); Lumbar radiculopathy Start: 12-15-2024 End: 12-15-2024 Subsequent hospital visit by physician Flora Browning MD Work Phone: [facility] Comment on above: Arrived Start: 12-15-2024 ambulatory FLORA BROWNING Facility :[facility] Start: 12-09-2024 End: 12-09-2024 Office outpatient visit 25 minutes Brian Preston PA-C Work Phone: [facility] Comment on above: S/P lumbar fusion (P rimary Dx); Lumbar radiculopathy; Spondylolisthesis, grade 1 Start: 12-09-2024 ambulatory BRIAN PRESTON JR. [facility] ili:[facility] Start: 11-16-2024 End: 11-16-2024 Office outpatient visit 25 minutes Brian Preston PA-C Work Phone: [facility] Comment on above: Spondylolisthesis, g rade 1 (Primary Dx); Lumbar spondylosis; Thoracic spondylosis; Lumbar radiculopathy; S/P lumbar fusion Start: 11-16-2024 ambulatory BRIAN PRESTON JR. [facility] ili:[facility] Start: 11-16-2024 End: 11-16-2024 Subsequent hospital visit by physician Brian Perston PA-C Work Phone: [facility] Comment on above: Arrived Start: 11-13-2024 In-person encounter Moncho Bautista MD Work Phone: [facility] [place] [facility] Work Phone: Start: 11-13-2024 Visit out of hours Moncho hale MD Work Phone: [employer] Work Phone: Start: 10-23-2024 Visit out of hours Deena calderon PA-C Work Phone: [employer] Work Phone: Start: 10-23-2024 In-person encounter Deena schwarz PA-C Work Phone: [facility] Work Phone: Start: 09-09-2024 ambulatory Pradeep Gillespie Facility:[facility] Start: 05-15-2024 Encounter for preprocedural laboratory examination Moncho Bautista [facility] Start: 05-06-2024 End: 05-06-[address] Pradeep Gillespie MD Work Phone: [facility] Work Phone: Start: 05-06-2024 End: 05-06-[address] Moncho Bautista MD -Radiology, [facility] Work Phone: Start: 05-06-2024 End: 05-06-2024 ambulatory Moncho Bautista Facility:[facility] Start: 03-26-2024 End: 03-26-2024 ambulatory Pradeep Manfred Facility:[facility] Start: 03-26-2024 End: 03-26-[address] Pradeep Gillespie MD -Physical Therapy Work Phone: Start: 02-20-2024 End: 02-20-[address] Gurpreet Bradley MD -[facility] Start: 02-20-2024 End: 02-20-2024 ambulatory [place]adeep [place]jamie [place] [place] Start: 12-10-2023 End: 12-10-2023 ambulatory Pradeep Eduin Facility:[facility] Start: 11-25-2023 End: 11-25-2023 ambulatory Pradeep Bonejamiei Facility:[facility] Start: 09-12-2023 End: 09-12-2023 Office consultation new/estab patient 60 min Cindy Taylor MD Work Phone: [facility] Comment on above: Lumbar pain (Primary Dx); Lumbar radiculopathy Start: 09-12-2023 End: 09-12-2023 Subsequent hospital visit by physician Cindy Taylor MD Work Phone: [facility] Comment on above: Arrived Start: 07-24-2023 End: 07-24-2023 ambulatory UNKNOWN PROVIDER Facility:[facility] Start: 10-27-2022 End: 10-27-2022 ambulatory PRADEEP GILLESPIE Facility:[facility] Start: 10-27-2022 End: 10-27-2022 Patient encounter procedure Rayray Hugo PA-C [facility] Comment on above: URI, acute (Primary Dx) Start: 07-11-2022 End: 08-16-2022 ambulatory VERONICA JALLOH PA-C Facility:[facility] Start: 07-11-2022 End: 08-16-2022 Admission to same day surgery center VERONICA JALLOH PA-C [facility] Start: 06-28-2022 End: 06-28-2022 Patient encounter procedure Pradeep Gillespie MD Work Phone: [facility] Start: 06-26-2022 End: 06-26-2022 Office outpatient visit 15 minutes Pradeep Gillespie MD Work Phone: [facility] Start: 06-26-2022 End: 06-26-2022 Preprocedural examination done Pradeep Gillespie MD Work Phone: [facility] Start: 06-26-2022 Review Pradeep Yeung Work Phone: [facility] Start: 05-29-2022 ambulatory Pradeep Gillespie MD [facility] Start: 04-12-2022 End: 04-12-2022 Phone Encounter Pradeep Gillespie MD Work Phone: [facility] Start: 04-12-2022 End: 04-12-2022 Office outpatient visit 15 minutes Pradeep Gillespie MD Work Phone: [facility] Start: 03-26-2022 Review Pradeep Yeung Work Phone: [facility] Start: 03-26-2022 End: 04-06-2022 Office outpatient visit 15 minutes Pradeep Gillespie MD Work Phone: [facility] Start: 02-13-2022 End: 02-13-2022 Office outpatient visit 10 minutes Pradeep Gillespie MD Work Phone: [facility] Start: 01-25-2022 End: 01-25-2022 Office outpatient visit 15 minutes Pradeep Gillespie MD Work Phone: [facility] Start: 02-23-2021 Review Pradeep Yeung Work Phone: [facility] Start: 02-23-2021 End: 02-27-2021 Office outpatient visit 15 minutes Pradeep Gillespie MD Work Phone: [facility] Start: 01-10-2021 End: 01-10-2021 Office outpatient visit 40 minutes Pradeep Gillespie MD Work Phone: [facility] Start: 12-01-2020 End: 12-06-2020 Office outpatient visit 10 minutes Pradeep Gillespie MD Work Phone: [facility] Start: 12-01-2020 End: 12-06-2020 Patient encounter status Pradeep Gillespie MD Work Phone: [facility] Start: 07-06-2020 End: 07-06-2020 Office outpatient visit 25 minutes Pradeep Gillespie MD Work Phone: [facility] Start: 07-06-2020 Review Pradeep Yeung Work Phone: [facility] Start: 05-26-2020 End: 06-02-2020 Office outpatient visit 40 minutes Pradeep Gillespie [facility] Start: 05-26-2020 End: 06-02-2020 Patient encounter status Pradeep Gillespie MD Work Phone: [facility]; [facility] Work Phone: Comment on above: 11-19-19 EWA Dueñas ss: MOCA 25/30, Cognivue 70, PSA 9-20, Hep C negative, refuse flu vaccine, colonscopy at 51 yo l [facility] vtib12 with cognivue Start: 02-25-2020 End: 03-06-2020 Office outpatient visit 25 minutes Pradeep Dennyi [facility] Start: 02-25-2020 Review Pradeep Bonezzi [facility] Start: 02-10-2020 End: 02-10-2020 Office outpatient visit 5 minutes Pradeep Bonezzi [facility] Start: 01-08-2020 End: 01-08-2020 Phone Encounter Pradeep Bonezzi [facility] Start: 12-30-2019 End: 12-30-2019 Phone Encounter Pradeep Bonezzi [facility] Start: 12-29-2019 Review Pradeep Bonezzi [facility] Start: 12-29-2019 End: 12-29-2019 Office outpatient visit 40 minutes Pradeep Bonejamiei [facility] Start: 11-19-2019 End: 11-19-2019 Patient encounter status Pradeep Gillespie MD Work Phone: [facility] Start: 11-19-2019 End: 11-19-2019 Periodic preventive med est patient 18-39 yrs Pradeep Dennyi [facility] Start: 11-19-2019 Review Pradeep Bonezzi [facility] Start: 11-03-2019 End: 11-02-2019 Lab Order Pradeep Bonejamiei [facility] Start: 09-24-2019 End: 09-24-2019 Phone Encounter Pradeep Bonejamiei [facility] Start: 09-23-2019 Review Pradeep Bonezzi [facility] Start: 09-10-2019 End: 09-10-2019 Office outpatient visit 25 minutes Pradeep Dennyi [facility] Patient encounter status Bhargav Valero LPN [facility]; [facility] Work Phone: Comment on above: 11-19-19 EWA Dueñas ss: MOCA 25/30, Cognivue 70, PSA 9-20, Hep C negative, refuse flu vaccine, colonscopy at 51 yo [facility] vtib12 with cognivue Patient encounter status Pradeep Gillespie MD Work Phone: [facility]; [facility] Work Phone: Comment on above: 12-01-20 EWA Novak ess: MOCA 27/30, Cognivue 82 (was 71) PSA 9-21, Hep C negative, refuse flu vaccine, colonoscopy 10-20 Patient encounter status Karishma Marcano RN [facility] [facility]; [facility] Work Phone: Comment on above: 12-01-20 ROMKerri Aguilalester ess: MOCA /30, Cognivue 82 (was 71) PSA 9-21, Hep C negative, refuse flu vaccine, colonoscopy 10-20 Patient encounter status Gini Monterroso [facility] Work Phone: [facility]; [facility] Work Phone: Comment on above: 12-01-20 EWA Novak ess: MOCA /, Cognivue 82 (was 71) PSA 9-21, Hep C negative, refuse flu vaccine, colonoscopy 10-20 Patient encounter status Karishma Marcano RN [address] [facility]; [facility] Work Phone: Comment on above: 12-01-20 EWA Novak ess: MOCA , Cognivue 82 (was 71) PSA 9-21, Hep C negative, refuse flu vaccine, colonoscopy 10-20 Patient encounter status Karishma Marcano RN [address] [facility]; [facility] Work Phone: Comment on above: 12-01-20 EWA Novak ess: MOCA /30, Cognivue 82 (was 71) PSA 9-21, Hep C negative, refuse flu vaccine, colonoscopy 10-20 Preprocedural examination done Pradeep Gillespie MD Work Phone: [facility]; [facility] Work Phone: Comment on above: risk low no trouble with surgery before will do cbc again to check CBC. will do eliquis 2.5 bid for about 35 days ost surgery Procedures Date Procedure Procedure Detail Performing Clinician Start: 12-15-2024 Njx anes&/strd w/img tfrml edrl lmbr/sac 1 lvl Flora Browning MD Work Phone: Start: 11-16-2024 End: 11-16-2024 Radex spine lumbosacral 2/3 views Brian REDDINGC Work Phone: Start: 11-13-2024 Blood pressure within normal parameters - no follow-up required Moncho Bautista MD Work Phone: Start: 11-13-2024 BMI documented as above normal parameters - follow-up documented Moncho Bautista MD Work Phone: Start: 11-13-2024 Current tobacco non-user cad cap copd pv dm Moncho Bautista MD Work Phone: Start: 11-13-2024 Documentation of current medications Moncho Bautista MD Work Phone: Start: 11-13-2024 Pain assessment not documented - reason not given Moncho Bautista MD Work Phone: Start: 10-23-2024 Blood pressure within normal parameters - no follow-up required Deena Roosevelt PA-C Work Phone: Start: 10-23-2024 BMI documented as above normal parameters - follow-up documented Deena Roosevelt PA-C Work Phone: Start: 10-23-2024 Current tobacco non-user cad cap copd pv dm Deena Roosevelt PA-C Work Phone: Start: 10-23-2024 Documentation of current medications Deena Roosevelt PA-C Work Phone: Start: 10-23-2024 Pain assessment documented as positive - no follow-up/reason not given Deena Roosevelt PA-C Work Phone: Start: 10-23-2024 Physical therapy management Deena Roosevelt PA-C Work Phone: Start: 05-06-2024 Computerized axial tomography of lumbar spine with contrast Dr. Pradeep Gillespie MD Work Phone: Start: 05-06-[address] Pradeep Gillespie MD Work Phone: Start: 02-20-2024 Plain x-ray of pelvis and lower extremity Dr. Pradeep Gillespie MD Work Phone: Start: 09-12-2023 Radex spine lumbosacral minimum 4 views Cindy Taylor MD Work Phone: Start: 06-04-2022 End: 06-05-2022 12 Lead EKG Procedure Note: See Note; NOTES: [facility] Cardiovascular Services [address] [place] [address] 12 Lead EKG 06/04/22 09 MR#: [id number] Acct: [id number] Name: NAYA WILLIAMSON Rep #: [id number] : 1960 61 From: Braden Marmolejo MD Attending Dr: Dr. Villa Wells MD Status: REG CLI Ordering Dr: Villa Wells MD Date: 06/04/22 Location: [facility] Sex: M C Admitted: Test Reason : PRE-OP Blood Pressure : / mmHG Vent. Rate : 051 BPM Atrial Rate : 051 BPM P-R Int : 260 ms QRS Dur : 078 ms QT Int : 398 ms P-R-T Axes : 047 015 038 degrees QTc Int : 366 ms Sinus bradycardia with 1st degree A-V block Otherwise normal ECG Confirmed by BRADEN MARMOLEJO ([id number]), pictures editor VIKTORIA JONES ([id number]) on 06/05/2022 7:07:15 AM Referred By: JANA Confirmed By:BRADEN MARMOLEJO 06/05/22 0707 Date Braden Marmolejo MD CC: Dr. Pradeep Gillespie MD; Dr. Villa Wells MD Signed Villa Wells Work Phone: Start: 04-12-2022 End: 04-12-2022 HIP, UNI W/ Pelvis 2-3 Views Procedure Note: See Note; NOTES: [facility] Radiology [address] [place] [address] HIP, UNI W/ Pelvis 2-3 Views MR#: [id number] Acct: [id number] Name: NAYA WILLIAMSON Rep #: [id number] : 1960 M 61 From: Louis Holguin MD PCP: Dr. Pradeep Gillespie MD Status: DEP AMB Study: HIP, UNI W/ Pelvis 2-3 Views Date of Exam: Exam# [id number] Ordering Dr: Pradeep Gillespie MD STUDY: X-RAY - PELVIS AND LEFT HIP REASON FOR EXAM: Male, 61 years old. Pain. TECHNIQUE: 3 views of the pelvis and hip. COMPARISON: None. FINDINGS: There is a non-specific bowel gas pattern. Phleboliths. Postsurgical changes projected over the symphysis pubis. Normal bilateral iliac wings, sacroiliac joints and visualized sacrum. Normal bilateral superior and inferior pubic rami. Mild arthrosis of the symphysis pubis. Normal bilateral ischial tuberosities. Bony overgrowth of the lateral aspect of the left femoral head with osteophyte formation of the acetabulum. 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 Mild arthrosis of both hips, left greater than right. RAD/HIP, UNI W/ Pelvis 2-3 Views IMPRESSION: Mild arthrosis of the symphysis pubis. Mild arthrosis of both hips, left greater than right. 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 Electronically Signed: Louis Holguin, at 11:42 EST , CC: Dr. Pradeep Gillespie MD Computer Publisher: Signed Pradeep Gillespie MD Work Phone: Start: 07-06-2020 End: 07-06-2020 Chiropractic Report Comments: See Note; NOTES: [facility] [address] [place] [address] OFFICE VISIT Date of Service: 07/06/20 MR#: [id number] Acct: [id number] Name: NAYA WILLIAMSON Rep #: [id number] : 1960 Provider: SMITH Mcnally Age/Sex: 59/M [place] [facility] [place] Status: Signed Intake Vital Signs 07/06/20 09:44 BMI 28.2 Intake Visit Reasons: Back Pain Chief Complaint: Neck, Mid and Low Back Pain Is patient in pain?: Yes Allergies No Known Allergies Allergy (Verified 05/21/20 18:40) [facility] Medical History High cholesterol History of carpal tunnel syndrome History of kidney stones History of left arm fracture History of left foot fracture History of pneumonia History of rib fracture History of skin cancer Surgical History History of carpal tunnel release history of left and right epicondyle surgery History of repair of anterior cruciate ligament of left knee History of rotator cuff surgery Family History Mother Cancer Grandmother Cancer Father Heart disease Grandfather Heart disease Parkinson disease Social History Smoking Status: Never smoker alcohol intake: current alcohol intake frequency: a few times a month Alcohol type: beer and wine substance use type: does not use what type of physical activity do you participate in: weight training and other details: Cardio frequency: 3-4 times per week HPI Back Pain Chief Complaint: Low Back Pain Visit Number: 6 Details: Naya Williamson is a 59 year old M here today for low back pain that is predominately left sided. He states that his pain continues to come and go and he is unsure if there was any improvement since his last adjustment. He states that the pain continues to be in his left low back and going down his left leg. He denies any numbness or tingling. Location: Left Low back, Leg Duration: Intermittent Aggravating or associated factors: Prolonged sitting and standing Relieving factors: Chiro Pain Quality: aching, cramping, sharp and radiating Exam Musc General: Yes normal gait and joint tenderness (C5,C6,C7,T1,T7,T8,L2,L3, L4,L5, L SI); No normal posture Cervical Spine: Yes normal cervical lordosis, Yes cervical muscular tenderness (improving) bilateral lower trapezius, Yes cervical spasm (trap) bilateral lower trapezius and Yes misalignment misalignment: C4, C5 and C6 Thoracic/Lumber: No thoracic and lumbar spine normal to inspection (high left shoulder), Yes paraspinal tenderness on the left greater than right (thoracolumbar), Yes thoraco-lumbar spasm on the left greater than right (paraspinal (T3-L5), QL) and Yes misalignment T1, T6, T7, T8, L2, L3, L4, L5 and LIL Sacroiliac joints: on the left tender to palpation Office Procedures Procedures - Chiropractic Procedures Manipulation: Cervical C7, Lumbar L3, Thoracic T7 and Pelvis LIL Manipulation: 3-4 regions Patient Response: positive Assessment and Plan Assessment and Plan (1) Segmental and somatic dysfunction of pelvic region: Status: Acute (2) Segmental and somatic dysfunction of lumbar region: Status: Acute (3) Segmental and somatic dysfunction of thoracic region: Status: Acute (4) Segmental and somatic dysfunction of cervical region: Status: Acute (5) Degeneration of intervertebral disc of lumbar region: Status: Chronic Comment: L2/L3 and L5/S1 (6) Back pain: Status: Acute Qualifiers: Back pain laterality: left Back pain location: low back pain Chronicity: acute Sciatica laterality: sciatica of left side Sciatica presence: with sciatica Qualified Code(s): M54.42 - Lumbago with sciatica, left side Plan - Dr. Aparna Larson, [place]: Patient was treated without incident. Continue care. Plan Details Goals Barriers: Goals Decrease spasm Improve intersegmental motion Decrease inflammation Barriers DDD-lumbar Transitional segment Follow Up: PRN Coding Level of Care Code No Charge Diagnoses Segmental and somatic dysfunction of pelvic region M99.05 Segmental and somatic dysfunction of lumbar region M99.03 Segmental and somatic dysfunction of thoracic region M99.02 Segmental and somatic dysfunction of cervical region M99.01 Degeneration of intervertebral disc of lumbar region M51.36 Back pain M54.42 Back pain laterality: left Back pain location: low back pain Chronicity: acute Sciatica laterality: sciatica of left side Sciatica presence: with sciatica CPT Codes Procedures - Manipulation: 3-4 regions ([id number]) 07/06/20 0958 <Electronically signed by Aparna Larson D.C.> Date Aparna Larson D.C. Cosigner Signature: Date (if applicable) CC: Pradeep Gillespie MD Work Phone: Start: 06-28-2020 End: 07-04-2020 Chiropractic Report Comments: See Note; NOTES: [facility] [address] [place] [address] OFFICE VISIT Date of Service: 06/28/20 MR#: [id number] Acct: [id number] Name: NAYA WILLIAMSON Rep #: [id number] : 1960 Provider: SMITH Mcnally Age/Sex: 59/M [place] [facility] [place] Status: Signed Intake Vital Signs 06/28/20 16:48 BMI 28.2 Intake Visit Reasons: Back Pain Chief Complaint: Neck, Mid and Low Back Pain Is patient in pain?: Yes Allergies No Known Allergies Allergy (Verified 05/21/20 18:40) [facility] Medical History High cholesterol History of carpal tunnel syndrome History of kidney stones History of left arm fracture History of left foot fracture History of pneumonia History of rib fracture History of skin cancer Surgical History History of carpal tunnel release history of left and right epicondyle surgery History of repair of anterior cruciate ligament of left knee History of rotator cuff surgery Family History Mother Cancer Grandmother Cancer Father Heart disease Grandfather Heart disease Parkinson disease Social History Smoking Status: Never smoker alcohol intake: current alcohol intake frequency: a few times a month Alcohol type: beer and wine substance use type: does not use what type of physical activity do you participate in: weight training and other details: Cardio frequency: 3-4 times per week HPI Back Pain Chief Complaint: Low Back Pain Visit Number: 5 Details: Naya Williamson is a 59 year old M here today for low back pain that is predominately left sided. He states that he felt some relief after his last adjustment but the pain continues to come and go. He states that with the pain coming and going it is hard to see if there is much improvement. He states that the pain continues to be in his left low back and going down his left leg. He denies any numbness or tingling. Location: Left Low back, Leg Duration: Intermittent Aggravating or associated factors: Prolonged sitting and standing Relieving factors: Chiro Pain Quality: aching, cramping, sharp and radiating Exam Musc General: Yes normal gait and joint tenderness (C5,C6,C7,T1,T7,T8,L2,L3, L4,L5, L SI); No normal posture Cervical Spine: Yes normal cervical lordosis, Yes cervical muscular tenderness (improving) bilateral lower trapezius, Yes cervical spasm (trap) bilateral lower trapezius and Yes misalignment misalignment: C4, C5 and C6 Thoracic/Lumber: No thoracic and lumbar spine normal to inspection (high left shoulder), Yes paraspinal tenderness on the left greater than right (thoracolumbar), Yes thoraco-lumbar spasm on the left greater than right (paraspinal (T3-L5), QL) and Yes misalignment T1, T7, T8, L2, L3, L4, L5 and LIL Sacroiliac joints: on the left tender to palpation Office Procedures Procedures - Chiropractic Procedures Manipulation: Cervical C5, Lumbar L4, Thoracic T1 and T8 and Pelvis LIL Manipulation: 3-4 regions Patient Response: positive Assessment and Plan Assessment and Plan (1) Segmental and somatic dysfunction of pelvic region: Status: Acute (2) Segmental and somatic dysfunction of lumbar region: Status: Acute (3) Segmental and somatic dysfunction of thoracic region: Status: Acute (4) Segmental and somatic dysfunction of cervical region: Status: Acute (5) Degeneration of intervertebral disc of lumbar region: Status: Chronic Comment: L2/L3 and L5/S1 Plan - Dr. Aparna Larson, [place]: Patient was treated without incident. Continue care. (6) Back pain: Status: Acute Qualifiers: Back pain laterality: left Back pain location: low back pain Chronicity: acute Sciatica laterality: sciatica of left side Sciatica presence: with sciatica Qualified Code(s): M54.42 - Lumbago with sciatica, left side Plan Details Goals Barriers: Goals Decrease spasm Improve intersegmental motion Decrease inflammation Barriers DDD-lumbar Transitional segment Follow Up: PRN Coding Level of Care Code No Charge Diagnoses Segmental and somatic dysfunction of pelvic region M99.05 Segmental and somatic dysfunction of lumbar region M99.03 Segmental and somatic dysfunction of thoracic region M99.02 Segmental and somatic dysfunction of cervical region M99.01 Degeneration of intervertebral disc of lumbar region M51.36 Back pain M54.42 Back pain laterality: left Back pain location: low back pain Chronicity: acute Sciatica laterality: sciatica of left side Sciatica presence: with sciatica CPT Codes Procedures - Manipulation: 3-4 regions ([id number]) 07/04/20 1314 <Electronically signed by Aparna Larson D.C.> Date Aparna Larson D.C. Cosigner Signature: Date (if applicable) CC: Pradeep Gillespie MD Work Phone: Start: 06-09-2020 End: 06-13-2020 Chiropractic Report Comments: See Note; NOTES: [facility] [address] [place], [place] [id number] OFFICE VISIT Date of Service: 06/09/20 MR#: [id number] Acct: [id number] Name: NAYA WILLIAMSON Rep #: [id number] : 1960 Provider: SMITH Mcnally Age/Sex: 59/M [place] [facility] [place] Status: Signed Intake Intake Visit Reasons: Back Pain Chief Complaint: Neck, Mid and Low Back Pain Allergies No Known Allergies Allergy (Verified 05/21/20 18:40) [facility] Medical History High cholesterol (Acute) History of carpal tunnel syndrome (Acute) History of kidney stones (Acute) History of left arm fracture (Acute) History of left foot fracture (Acute) History of pneumonia (Acute) History of rib fracture (Acute) History of skin cancer (Acute) Surgical History History of carpal tunnel release (Acute) History of repair of anterior cruciate ligament of left knee (Acute) History of rotator cuff surgery (Acute) history of left and right epicondyle surgery (Acute) Family History Mother Cancer Grandmother Cancer Father Heart disease Grandfather Heart disease Parkinson disease Social History (Updated 06/13/20 @ 09:[address] Aparna Larson, SMITH) Smoking Status: Never smoker alcohol intake: current alcohol intake frequency: a few times a month Alcohol type: beer, wine substance use type: does not use what type of physical activity do you participate in: weight training, other details: Cardio frequency: 3-4 times per week HPI Back Pain: Chief Complaint: Neck, Mid and Low Back Pain Visit Number: 4 Details: NAYA WILLIAMSON is a 59 year old M here today for neck and low back pain. He states that he had a decrease in his pain after his last adjustment but continues to have soreness in his left low back that is occasionally sharp. He states that he also has intermittent radiating pain down the left leg. He denies any numbness or tingling. Location: Left Low Back Duration: Frequent Aggravating or associated factors: Prolonged sitting and standing Relieving factors: Chiro Pain Quality: aching, cramping, sharp Exam Musc General: Yes normal gait and joint tenderness (C5,C6,C7,T1,T7,T8,L2,L3, L4,L5, L SI); no normal posture (high left shoulder) Cervical Spine: Yes normal cervical lordosis, Yes cervical muscular tenderness (improving) bilateral lower: trapezius, Yes cervical spasm (trap) bilateral lower: trapezius, Yes misalignment misalignment: C4, C5, C6 Thoracic/Lumber: No thoracic and lumbar spine normal to inspection (Left high shoulder), Yes paraspinal tenderness on the left greater than right (thoracolumbar), Yes thoraco-lumbar spasm on the left greater than right (paraspinal (T3-L5), QL), Yes misalignment T1, T7, T8, L2, L3, L4, L5, LIL Sacroiliac joints: on the left tender to palpation Office Procedures Chiropractic Treatments Procedures Manipulation: Cervical C5, Lumbar L4, Thoracic T1, T8, Pelvis LIL Manipulation: 3-4 regions Patient Response: positive Assessment Plan Problems 1. Acute left-sided low back pain with left-sided sciatica M54.42 2. Degeneration of intervertebral disc of lumbar region M51.36 L2/L3 and L5/S1 3. Segmental and somatic dysfunction of cervical region M99.01 4. Segmental and somatic dysfunction of thoracic region M99.02 5. Segmental and somatic dysfunction of lumbar region M99.03 6. Segmental and somatic dysfunction of pelvic region M99.05 Plan Patient was treated without incident. Continue care. Orders Orders: Chiropractic Treatments 06/09/20 M51.36, M54.9, M99.01, M99.02, M99.03, M99.05 Plan Detail Goals Decrease spasm Improve intersegmental motion Decrease inflammation Barriers DDD-lumbar Transitional segment Follow Up PRN Coding Level of Care Code No Charge Diagnoses Acute left-sided low back pain with left-sided sciatica M54.42 ?Back pain laterality: left ?Back pain location: low back pain ?Chronicity: acute ?Sciatica laterality: sciatica of left side ?Sciatica presence: with sciatica Degeneration of intervertebral disc of lumbar region M51.36 Segmental and somatic dysfunction of cervical region M99.01 Segmental and somatic dysfunction of thoracic region M99.02 Segmental and somatic dysfunction of lumbar region M99.03 Segmental and somatic dysfunction of pelvic region M99.05 Additional Codes Procedures - Manipulation: 3-4 regions ([id number]) 06/13/20 0948 <Electronically signed by Aparna Larson D.C.> Date Aparna Larson D.C. Cosigner Signature: Date (if applicable) CC: Pradeep Gillespie MD Work Phone: Start: 05-31-2020 End: 05-31-2020 Chiropractic Report Comments: See Note; NOTES: [facility] [address] [place] [address] OFFICE VISIT Date of Service: 05/31/20 MR#: [id number] Acct: [id number] Name: NAYA WILLIAMSON Rep #: [id number] : 1960 Provider: SMITH Mcnally Age/Sex: 59/M [place] [facility] [place] Status: Signed Intake Intake Visit Reasons: Back Pain Chief Complaint: Neck, Mid and Low Back Pain Is patient in pain?: Yes Allergies No Known Allergies Allergy (Verified 05/21/20 18:40) [facility] Medical History High cholesterol (Acute) History of carpal tunnel syndrome (Acute) History of kidney stones (Acute) History of left arm fracture (Acute) History of left foot fracture (Acute) History of pneumonia (Acute) History of rib fracture (Acute) History of skin cancer (Acute) Surgical History History of carpal tunnel release (Acute) History of repair of anterior cruciate ligament of left knee (Acute) History of rotator cuff surgery (Acute) history of left and right epicondyle surgery (Acute) Family History Mother Cancer Grandmother Cancer Father Heart disease Grandfather Heart disease Parkinson disease Social History (Updated 05/31/20 @ 15:[address] Aparna Larson, [place]) Smoking Status: Never smoker alcohol intake: current alcohol intake frequency: a few times a month Alcohol type: beer, wine substance use type: does not use what type of physical activity do you participate in: weight training, other details: Cardio frequency: 3-4 times per week HPI Back Pain: Chief Complaint: Neck, Mid and Low Back Pain Visit Number: 4 Details: NAYA WILLIAMSON is a 59 year old M here today for neck and low back pain. He had relief after his last adjustment but after over a week his left low back pain came back. He states that he is not experiencing any pain in his neck or mid-back. He states that his left low back has become a stabbing, sharp pain. He denies any numbness, tingling, or radiculopathy. Location: Left Low Back Duration: Frequent Aggravating or associated factors: Prolonged sitting and standing Relieving factors: Chiro Pain Quality: aching, cramping, sharp Exam Musc General: Yes normal gait and joint tenderness (C5,C6,C7,T1,T7,T8,L2,L3, L4,L5, L SI); no normal posture (high left shoulder) Cervical Spine: Yes normal cervical lordosis, Yes cervical muscular tenderness (improving) bilateral lower: trapezius, Yes cervical spasm (trap) bilateral lower: trapezius, Yes misalignment misalignment: C4, C5, C6 Thoracic/Lumber: No thoracic and lumbar spine normal to inspection (Left high shoulder), Yes paraspinal tenderness on the left greater than right (thoracolumbar), Yes thoraco-lumbar spasm on the left greater than right (paraspinal (T3-L5), QL), Yes misalignment T1, T7, T8, L2, L3, L4, L5, LIL Sacroiliac joints: on the left tender to palpation Neuro General: alert, awake, oriented x3, normal light touch, pain and propioception, deep tendon reflexes 2+ bilaterally Cranial Nerves: CN's II-XI intact bilaterally Cognition: normal cognition Speech: speech normal Gait: normal gait Motor: muscle tone normal throughout Sensory Exam: no sensory deficits noted Ortho Test CERVICAL Compression pain: Negative Distraction pain: relief Charles's pain: Negative Shoulder depression pain: Left THORACIC Kemps: Positive, Left Whitlock: Negative LUMBAR Kemps: Positive, Left Valsalvas: Negative SLR: Negative Iliac Compression: Positive, Left Office Procedures Chiropractic Treatments Procedures Manipulation: Cervical C6, Lumbar L4, Thoracic T1, T8, Pelvis LIL Manipulation: 3-4 regions Patient Response: positive Assessment Plan Problems 1. Acute left-sided low back pain with left-sided sciatica M54.42 2. Degeneration of intervertebral disc of lumbar region M51.36 L2/L3 and L5/S1 3. Segmental and somatic dysfunction of cervical region M99.01 4. Segmental and somatic dysfunction of thoracic region M99.02 5. Segmental and somatic dysfunction of lumbar region M99.03 6. Segmental and somatic dysfunction of pelvic region M99.05 Plan Patient was treated without incident. Continue care. Orders Orders: Chiropractic Treatments Today M51.36, M99.01, M99.02, M99.03, M99.05 Plan Detail Goals Decrease spasm Improve intersegmental motion Decrease inflammation Barriers DDD-lumbar Transitional segment Follow Up PRN Coding Level of Care Code No Charge Diagnoses Acute left-sided low back pain with left-sided sciatica M54.42 ?Back pain laterality: left ?Back pain location: low back pain ?Chronicity: acute ?Sciatica laterality: sciatica of left side ?Sciatica presence: with sciatica Degeneration of intervertebral disc of lumbar region M51.36 Segmental and somatic dysfunction of cervical region M99.01 Segmental and somatic dysfunction of thoracic region M99.02 Segmental and somatic dysfunction of lumbar region M99.03 Segmental and somatic dysfunction of pelvic region M99.05 Additional Codes Procedures - Manipulation: 3-4 regions ([id number]) 05/31/20 1502 <Electronically signed by Aparna Larson D.C.> Date Aparna Larson D.C. Cosigner Signature: Date (if applicable) CC: Pradeep Gillespie Start: 05-21-2020 End: 05-21-2020 Brain/Head without Contrast Comments: See Note; NOTES: [facility] Services [address] [place] [address] Brain/Head without Contrast MR#: [id number] Acct: [id number] Name: NAYA WILLIAMSON Rep #: [id number] : 1960 M 59 From: Giorgi Paredes MD PCP: Dr. Pradeep Gillespie MD Status: REG Study: Brain/Head without Contrast Date of Exam: 05/08 Exam# [id number] Ordering Dr: Sanjuana Contreras STUDY: CT BRAIN WITHOUT CONTRAST REASON FOR EXAM: Male, 59 years old. Syncope possibly exposed to electric shock RADIATION DOSAGE (If Supplied By Facility): CTDIvol = ( 44.99 ) mGy, DLP = ( 829.85 ) mGycm TECHNIQUE: Transaxial CT imaging of the brain was performed without administration of intravenous contrast material. Individualized dose optimization techniques were used for this CT. COMPARISON: No relevant priors. FINDINGS: Normal soft tissue structures. Normal calvarium. Normal size ventricles and extra-axial spaces for the patient''s age. Normal white matter tracts of the cerebral hemispheres. Normal basal ganglia and thalami. Normal brainstem. Normal cerebellum. There is no intracranial hemorrhage. There are no findings of an acute ischemic infarction. Mild mucosal thickening of the left sphenoid sinus CT/Brain/Head without Contrast IMPRESSION: Normal unenhanced CT scan of the brain. Mild left sphenoid sinus disease likely chronic Electronically Signed: Giorgi Paredes MD at 20:54 EDT , Service support , CC: Dr. Pradeep Gillespie MD; Dr. Sanjuana Contreras MD Computer Publisher: Ivan Gillespie Start: 05-21-2020 End: 05-21-2020 Emergency Department Summary Comments: See Note; NOTES: [facility] Medical Records Department [address] [place] [place] [address] Emergency Department Summary 05/21/20 MR#: [id number] Acct: [id number] Name: NAYA WILLIAMSON Rep #: [id number] : 1960 59 From: Sanjuana Contreras MD PCP: Dr. Pradeep Gillespie MD Status:DEP ER History of Present Illness Chief Complaint: General Illness Informant: Patient Onset: Today Maximum Severity: Mild Narrative: The patient presents complaining that he was basically trying to open up nonmotorized gait when he felt as if a force pushed him down to the ground he was on the ground for a few minutes he believes he may been exposed to electrical current that is part of the fence that the gait is attached to but the gait itself is not electrified he was on the ground for a few minutes, this occurred earlier in the day about 7 hours ago his found out recently and she wanted him to be seen he had no LOC no incontinence no head neck chest or abdominal pain no fever cough he has no history of AK PE or DVT he has no headache he has an area to the right wrist that is slightly contused and he wonders if this is possibly the contact point with some type of electrical current Past Medical History - Allergies and Home Meds Allergies/Adverse Reactions: Allergies No Known Allergies Allergy (Verified 05/21/20 18:40) Primary Care Physician: Pradeep Gillespie MD [Primary Care Provider] - Past Medical History: None Smoking Status: Never smoker Review of Systems General: Denies: Chills, Fever, Sweats Eyes: Denies: Visual changes - bilaterally, Diplopia ENT: Denies: Rhinorrhea, Sore throat Cardiovascular: Denies: Chest pain, Palpitations Respiratory: Denies: Dyspnea, Cough, Dyspnea on exertion Gastrointestinal: Denies: Abdominal pain, Nausea, Vomiting, Diarrhea, Melena, Hematochezia Genitourinary: Denies: Dysuria, Hematuria, Frequency Musculoskeletal: Denies: Back pain, Extremity Pain Skin: Denies: Rash, Wounds Neurological: Denies: Headache, Weakness, Numbness Physical Exam Vital Signs/Narrative: Vital Signs Temp Pulse Resp BP Pulse Ox 05/21/20 18:37 97.7 F L 62 18 153/73 H 97 General: Well nourished, Well developed, No Acute Distress Head: Normocephalic, Atraumatic Eyes: Perrl, EOMI ENT: Moist mucous membranes, No rhinorrhea Neck: Supple, Nontender Cardiovascular: Regular rate, Regular rhythm, No murmurs Respiratory: No distress, CTA bilaterally, Chest nontender Abdomen: Soft, Nontender, Nondistended, Normal bowel sounds Back: Nontender, Normal Inspection Extremities: Nontender, No edema Skin: Normal color, No rash Neurological: Alert, Oriented x3, Cranial nerves II-XII grossly intact, Normal Strength, Normal Sensation Psychological: Normal affect, Normal Mood Diagnostic/Tx/Re-eval - Medical Decision Making The patient's physical exam and neurologic exam unremarkable NIH 0 his EKG shows a sinus rhythm rate 64 no acute injury patterns appreciated given his complaints ED screening evaluation ED screening evaluation generally unremarkable his CPKs about 400 all of his other studies including chest x-ray head CT negative he is received IV fluids here I had a long conversation with him I explained to him that the exact etiology of this force that pushed him to the ground is remains unclear it certainly could be related to electrical exposure but there is no signs of any life- threatening causes relationship or outcome from that exposure. We discussed inpatient versus outpatient management he was stayed in the emergency room on the monitor for extended period time with no symptoms he insists he feels fine he understands the concept of an occult life-threatening condition contributing to this syndrome does not wish to be admitted as tomorrow is Easter he will follow-up with his outpatient providers and he will double check the electrical issues on his property and the gait Home stable Impression final possible electrical exposure electrocution, possible syncope ED Disposition - Plan for ED Patient: Diagnosis: Syncope, Injury due to electrical exposure Instructions: ED Electrical Injury, ED Fainting, Uncertain Cause Referrals: Pradeep Gillespie MD [Primary Care Provider] - What to do if you have Problems For any increased pain, shortness of breath, bleeding, nausea or vomiting, chest pain, or any unexpected problems, contact your Primary Care Provider. Call [facility] ([phone]) or report to the closest Emergency Room. Call 911 if necessary. 05/21/202220 <Electronically signed by Sanjuana Contreras MD> Date Sanjuana Contreras MD Cosigner Signature (If Indicated): Date CC: MD Pradeep Staton Start: 05-21-2020 End: 05-21-2020 Chest 1 View (Portable) Comments: See Note; NOTES: [facility] Imaging Services [address] [place] [id number] Chest 1 View (Portable) MR#: [id number] Acct: [id number] Name: NAYA WILLIAMSON Rep #: [id number] : 1960 M 59 From: Mannie Duarte MD PCP: Dr. Pradeep Gillespie MD Status: REG ER Study: Chest 1 View (Portable) Date of Exam: 05/21/20 Exam# [id number] Ordering Dr: Sanjuana Contreras EXAM: XR CHEST, 1 VIEW CLINICAL INDICATION: Possible electrocution, loss of memory TECHNIQUE: Frontal view of the chest. This report was created using [employer] report generation technology. COMPARISON: None. FINDINGS: LUNGS AND PLEURAL SPACES: Unremarkable. No consolidation or edema. No pneumothorax. No effusion. HEART: Unremarkable. Cardiac silhouette not enlarged. MEDIASTINUM: Central airways and mediastinal contour are unremarkable. BONES/JOINTS: Operative changes of the right humeral head. Old left rib fractures. SOFT TISSUES: Unremarkable. VASCULATURE: Tortuosity of the thoracic aorta. RAD/Chest 1 View (Portable) IMPRESSION: No acute findings in the chest. Electronically Signed: Mannie Duarte MD ([place]) at 19:26 EDT , Service support , CC: Dr. Pradeep Gillespie MD; Dr. Sanjuana Contreras MD Computer Publisher: Signed Pradeep Gillespie Start: 05-21-2020 End: 05-25-2020 12 Lead EKG Comments: See Note; NOTES: [facility] Cardiovascular Services [address] [place] [address] 12 Lead EKG 05/21/20 1852 MR#: [id number] Acct: [id number] Name: NAYA WILLIAMSON Rep #: [id number] : 1960 59 From: Gurpreet Bradley MD Attending Dr: Status: DEP ER Ordering Dr: Sanjuana Contreras MD Date: 05/21/20 Location: ED Sex: M C Admitted: Test Reason : GENERAL ILLNESS Blood Pressure : / mmHG Vent. Rate : 064 BPM Atrial Rate : 064 BPM P-R Int : 238 ms QRS Dur : 086 ms QT Int : 378 ms P-R-T Axes : 047 016 042 degrees QTc Int : 389 ms Sinus rhythm with 1st degree A-V block Otherwise normal ECG Confirmed by MIRNA RESENDIZ, GURPREET ([id number]), pictures editor ALEX PRESTON ([id number]) on 05/25/2020 7:47:44 AM Referred By: Confirmed By:GURPREET BRADLEY MD 05/25/20 0747 Date Gurpreet Bradley MD CC: Dr. Pradeep Gillespie MD; Dr. Sanjuana Contreras MD Signed Pradeep Gillespie Start: 04-25-2020 End: 04-25-2020 Chiropractic Report Comments: See Note; NOTES: [facility] [address] [place] [id number] OFFICE VISIT Date of Service: 04/25/20 MR#: [id number] Acct: [id number] Name: NAYA WILLIAMSON Rep #: [id number] : 1960 Provider: SMITH Mcnally Age/Sex: 59/M [place] [facility] [place] Status: Signed Intake Intake Visit Reasons: LBP Dag Coater Required: No Accompanied by: self Is patient in pain?: Yes Allergies No Known Allergies Allergy (Verified 04/25/20 08:13) Medications aspirin 81 mg tablet,delayed release 81 mg PO DAILY 04/11/20 [History Confirmed 04/25/20] atorvastatin 10 mg tablet 10 mg PO DAILY 04/11/20 [History Confirmed 04/25/20] [facility] Medical History High cholesterol (Acute) History of carpal tunnel syndrome (Acute) History of kidney stones (Acute) History of left arm fracture (Acute) History of left foot fracture (Acute) History of pneumonia (Acute) History of rib fracture (Acute) History of skin cancer (Acute) Surgical History History of carpal tunnel release (Acute) History of repair of anterior cruciate ligament of left knee (Acute) History of rotator cuff surgery (Acute) history of left and right epicondyle surgery (Acute) Family History Mother Cancer Grandmother Cancer Father Heart disease Grandfather Heart disease Parkinson disease Social History (Updated 04/25/20 @ 08:[address] Aparna Larson, SMITH) Smoking Status: Never smoker alcohol intake: current alcohol intake frequency: a few times a month Alcohol type: beer, wine substance use type: does not use what type of physical activity do you participate in: weight training, other details: Cardio frequency: 3-4 times per week HPI LBP: Chief Complaint: Lower left back, neck and shoulders Visit Number: 3 Details: NAYA WILLIAMSON is a 59 year old M here today for continued pain in lower left back that he states radiated up back and into shoulders. He does state occasional numbness in hands. He explains not much change since last visit, except that the pain isn't noticeable as often. He denies any injury or accidents. Location: lower left back, neck, shoulders Duration: intermittent Aggravating or associated factors: prolonged standing and sitting Relieving factors: Movement, Chiropractic manipulation Treatment: Chiropractic manipulation Pain Quality: aching, dull, cramping, radiating Current Sensation: catching, locking/clicking Exam Musc General: Yes normal gait and joint tenderness (C5,C6,C7,T1,T7,T8,L2,L3, L4,L5, L SI); no normal posture (high left shoulder) Cervical Spine: Yes normal cervical lordosis, Yes cervical muscular tenderness bilateral lower: trapezius, Yes cervical spasm (trap) bilateral lower: trapezius, Yes misalignment misalignment: C4, C5, C6 Thoracic/Lumber: No thoracic and lumbar spine normal to inspection (Left high shoulder), Yes paraspinal tenderness on the left greater than right (thoracolumbar), Yes thoraco-lumbar spasm on the left greater than right (paraspinal (T3-L5), QL), Yes misalignment T1, T7, T8, L2, L3, L4, L5, LIL Sacroiliac joints: on the left tender to palpation Neuro General: alert, awake, oriented x3, normal light touch, pain and propioception, deep tendon reflexes 2+ bilaterally Cranial Nerves: CN's II-XI intact bilaterally Cognition: normal cognition Speech: speech normal Gait: normal gait Motor: muscle tone normal throughout Sensory Exam: no sensory deficits noted Ortho Test CERVICAL Compression pain: Negative Distraction pain: relief Charles's pain: Negative Shoulder depression pain: Left THORACIC Kemps: Positive, Left Whitlock: Negative LUMBAR Kemps: Positive, Left Valsalvas: Negative SLR: Negative Iliac Compression: Positive, Left Office Procedures Chiropractic Treatments Procedures Manipulation: Cervical C6, Lumbar L4, Thoracic T4, T8, Pelvis LIL Manipulation: 3-4 regions Patient Response: no change Assessment Plan 1. Segmental and somatic dysfunction of pelvic region M99.05 Orders Orders: Chiropractic Treatments Today 2. Segmental and somatic dysfunction of lumbar region M99.03 Orders Orders: Chiropractic Treatments Today 3. Segmental and somatic dysfunction of thoracic region M99.02 Orders Orders: Chiropractic Treatments Today 4. Segmental and somatic dysfunction of cervical region M99.01 Orders Orders: Chiropractic Treatments Today 5. Degeneration of intervertebral disc of lumbar region M51.36 L2/L3 and L5/S1 Orders Orders: Chiropractic Treatments Today Plan Detail Additional Comments Patient was treated without incident. Continue care. Goals Decrease spasm Improve intersegmental motion Decrease inflammation Barriers DDD-lumbar Transitional segment Follow Up 1 x week (3 of 4) Coding Level of Care Code No Charge Diagnoses Segmental and somatic dysfunction of pelvic region M99.05 Segmental and somatic dysfunction of lumbar region M99.03 Segmental and somatic dysfunction of thoracic region M99.02 Segmental and somatic dysfunction of cervical region M99.01 Degeneration of intervertebral disc of lumbar region M51.36 Additional Codes Procedures - Manipulation: 3-4 regions (67942) 04/25/20 0847 <Electronically signed by Aparna Larson D.C.> Date Aparna Galarzaignjanes Signature: Date (if applicable) CC: Pradeep Gillespie Start: 04-18-2020 End: 04-18-2020 Chiropractic Report Comments: See Note; NOTES: [facility] [address] [place], [place] [id number] OFFICE VISIT Date of Service: 04/18/20 MR#: [id number] Acct: [id number] Name: NAYA WILLIAMSON Rep #: [id number] : 1960 Provider: SMITH Mcnally Age/Sex: 59/M [place] [facility] [place] Status: Signed Intake Intake Visit Reasons: Back pain Accompanied by: self Allergies No Known Allergies Allergy (Verified 04/18/20 08:02) Medications aspirin 81 mg tablet,delayed release 81 mg PO DAILY 04/11/20 [History Confirmed 04/18/20] atorvastatin 10 mg tablet 10 mg PO DAILY 04/11/20 [History Confirmed 04/18/20] [facility] Medical History High cholesterol (Acute) History of carpal tunnel syndrome (Acute) History of kidney stones (Acute) History of left arm fracture (Acute) History of left foot fracture (Acute) History of pneumonia (Acute) History of rib fracture (Acute) History of skin cancer (Acute) Surgical History History of carpal tunnel release (Acute) History of repair of anterior cruciate ligament of left knee (Acute) History of rotator cuff surgery (Acute) history of left and right epicondyle surgery (Acute) Family History Mother Cancer Grandmother Cancer Father Heart disease Grandfather Heart disease Parkinson disease Social History (Updated 04/18/20 @ 09:[address] Aparna Larson, [place]) Smoking Status: Never smoker alcohol intake: current alcohol intake frequency: a few times a month Alcohol type: beer, wine substance use type: does not use what type of physical activity do you participate in: weight training, other details: Cardio frequency: 3-4 times per week HPI Back pain: Chief Complaint: Neck, Mid back, lower back pain Visit Number: 2 Details: NAYA WILLIAMSON is a 59 year old M here today for chronic neck, mid and low back pain. He states little to no noticed improvement from last visit. He states that since then he has had frequent sharp pain in his left low back and mid-back. He states that the pain is worsened by prolonged sitting and standing. He occasionally has sharp radiating pain down his left leg at times. He states that more recently he began to have intermittent sharp pain at the base of his neck going into his upper back that is worse on the left side. He states that the neck also feels very tight. He denies any radiculopathy to the arms, however he has a history of carpal tunnel. He denies any recent injuries. He denies any numbness or tingling. Location: Lower left back/neck Duration: intermittent Aggravating or associated factors: prolonged sitting or standing Relieving factors: stretching, chiropractic manipulation Treatment: Chiropractic manipulation Pain Quality: aching, cramping, sharp, radiating Current Sensation: catching, locking/clicking Exam Musc General: Yes normal gait and joint tenderness (C5,C6,C7,T1,T7,T8,L2,L3, L4,L5, L SI); no normal posture (high left shoulder) Cervical Spine: Yes normal cervical lordosis, Yes cervical muscular tenderness bilateral lower: trapezius, Yes cervical spasm (trap) bilateral lower: trapezius, Yes misalignment misalignment: C4, C5, C6 Thoracic/Lumber: No thoracic and lumbar spine normal to inspection (Left high shoulder), Yes paraspinal tenderness on the left greater than right (thoracolumbar), Yes thoraco-lumbar spasm on the left greater than right (paraspinal (T3-L5), QL), Yes misalignment T1, T7, T8, L2, L3, L4, L5, LIL Sacroiliac joints: on the left tender to palpation Neuro General: alert, awake, oriented x3, normal light touch, pain and propioception, deep tendon reflexes 2+ bilaterally Cranial Nerves: CN's II-XI intact bilaterally Cognition: normal cognition Speech: speech normal Gait: normal gait Motor: muscle tone normal throughout Sensory Exam: no sensory deficits noted Ortho Test CERVICAL Compression pain: Negative Distraction pain: relief Charles's pain: Negative Shoulder depression pain: Left THORACIC Kemps: Positive, Left Whitlock: Negative LUMBAR Kemps: Positive, Left Valsalvas: Negative SLR: Negative Iliac Compression: Positive, Left Office Procedures Chiropractic Treatments Procedures Manipulation: Cervical C6, Lumbar L4, Thoracic T1, T8, Pelvis LIL Manipulation: 3-4 regions Patient Response: positive Assessment Plan 1. Acute left-sided low back pain with left-sided sciatica M54.42 2. Degeneration of intervertebral disc of lumbar region M51.36 Orders Orders: Chiropractic Treatments Today 3. Segmental and somatic dysfunction of cervical region M99.01 Orders Orders: Chiropractic Treatments Today 4. Segmental and somatic dysfunction of thoracic region M99.02 Orders Orders: Chiropractic Treatments Today 5. Segmental and somatic dysfunction of lumbar region M99.03 Orders Orders: Chiropractic Treatments Today 6. Segmental and somatic dysfunction of pelvic region M99.05 Orders Orders: Chiropractic Treatments Today Plan Detail Additional Comments Patient was treated without incident. Continue at 1x/wk. Goals Decrease spasm Improve intersegmental motion Decrease inflammation Barriers DDD-lumbar Transitional segment Follow Up 1 Week Coding Level of Care Code No Charge Diagnoses Acute left-sided low back pain with left-sided sciatica M54.42 ?Back pain laterality: left ?Back pain location: low back pain ?Chronicity: acute ?Sciatica laterality: sciatica of left side ?Sciatica presence: with sciatica Degeneration of intervertebral disc of lumbar region M51.36 Segmental and somatic dysfunction of cervical region M99.01 Segmental and somatic dysfunction of thoracic region M99.02 Segmental and somatic dysfunction of lumbar region M99.03 Segmental and somatic dysfunction of pelvic region M99.05 Additional Codes Procedures - Manipulation: 3-4 regions ([id number]) 04/18/20 0959 <Electronically signed by Aparna Larson D.C.> Date Aparna Zapien Signature: Date (if applicable) CC: Pradeep Gillespie Start: 04-11-2020 End: 04-11-2020 Chiropractic Report Comments: See Note; NOTES: [facility] [address] [place], [place] [address] OFFICE VISIT Date of Service: 04/11/20 MR#: [id number] Acct: [id number] Name: NAYA WILLIAMSON Rep #: [id number] : 1960 Provider: SMITH Mcnally Age/Sex: 59/M [place] [facility] [place] Status: Signed Intake Vital Signs 04/11/20 Height 6 ft 1 in 04/11/20 Weight: 209 lb 9 oz 04/11/20 BMI 27.6 Intake Visit Reasons: Back Pain Chief Complaint: Neck, Mid and Low Back Pain Is patient in pain?: Yes Pain scale (1-10): 4 Allergies No Known Allergies Allergy (Unverified 04/11/20 10:42) Medications aspirin 81 mg tablet,delayed release 81 mg PO DAILY 04/11/20 [History Confirmed 04/11/20] atorvastatin 10 mg tablet 10 mg PO DAILY 04/11/20 [History Confirmed 04/11/20] [facility] Medical History High cholesterol (Acute) History of carpal tunnel syndrome (Acute) History of kidney stones (Acute) History of left arm fracture (Acute) History of left foot fracture (Acute) History of pneumonia (Acute) History of rib fracture (Acute) History of skin cancer (Acute) Surgical History History of carpal tunnel release (Acute) History of repair of anterior cruciate ligament of left knee (Acute) History of rotator cuff surgery (Acute) history of left and right epicondyle surgery (Acute) Family History Mother Cancer Grandmother Cancer Father Heart disease Grandfather Heart disease Parkinson disease Social History (Updated 04/11/20 @ 13:[address] Aparna Larson, [place]) Smoking Status: Never smoker alcohol intake: current alcohol intake frequency: a few times a month Alcohol type: beer, wine substance use type: does not use what type of physical activity do you participate in: weight training, other details: Cardio frequency: 3-4 times per week HPI Back Pain: Chief Complaint: Neck, Mid and Low Back Pain Visit Number: 1 Referral source: Dr. Gillespie Details: NAYA WILLIAMSON is a 59 year old M here today for chronic neck, mid and low back pain. He states that he had an injury to his low back five years ago. 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 He states that later it had been discovered that his discs had sustained damage. He states that since then he has had frequent sharp pain in his left low back and mid-back. He states that the pain is worsened by prolonged sitting and standing. He occasionally has sharp radiating pain down his left leg at times. He states that more recently he began to have intermittent sharp pain at the base of his neck going into his upper back that is worse on the left side. He states that the neck also feels very tight. He denies any radiculopathy to the arms, however he has a history of carpal tunnel. He states that he has been to a chiropractor before and has gotten some relief from his pain. He states that they also tried injections to the left low back but these were not helpful. He denies any recent injuries. He denies any numbness or tingling. Location: Neck, Left Mid and Low Back Duration: Frequent Aggravating or associated factors: Prolonged sitting and standing Relieving factors: Unknown Pain Quality: aching, cramping, sharp, radiating Exam Musc General: Yes normal gait and joint tenderness (C5,C6,C7,T1,T7,T8,L2,L3, L4,L5, L SI); no normal posture (high left shoulder) or decreased ROM Cervical Spine: Yes normal cervical lordosis, Yes cervical muscular tenderness bilateral lower: trapezius, Yes pain with cervical ROM with lateral flexion to right and with lateral flexion to left, Yes cervical spasm bilateral lower: trapezius, Yes misalignment misalignment: C4, C5, C6 Thoracic/Lumber: No thoracic and lumbar spine normal to inspection (Left high shoulder), Yes straight leg raise negative bilaterally, Yes Lasegue's sign positive on the left, Yes pain with thoraco-lumbar ROM with forward flexion (left) and with lateral flexion to the left, Yes paraspinal tenderness on the left greater than right (thoracolumbar), Yes thoraco-lumbar ROM limited with forward flexion, Yes thoraco-lumbar spasm on the left greater than right (paraspinal (T3-L5), QL), Yes misalignment T1, T7, T8, L2, L3, L4, L5, LIL Sacroiliac joints: on the left tender to palpation Neuro General: alert, awake, oriented x3, normal light touch, pain and propioception, deep tendon reflexes 2+ bilaterally Cranial Nerves: CN's II-XI intact bilaterally Cognition: normal cognition Speech: speech normal Gait: normal gait Motor: muscle tone normal throughout Sensory Exam: no sensory deficits noted Ortho Test CERVICAL Compression pain: Negative Distraction pain: relief Charles's pain: Negative Shoulder depression pain: Left THORACIC Kemps: Positive, Left Whitlock: Negative LUMBAR Kemps: Positive, Left Valsalvas: Negative SLR: Negative Iliac Compression: Positive, Left Office Procedures Chiropractic Treatments Procedures Manipulation: Cervical C6, Lumbar L3, Thoracic T1, T7, Pelvis LIL Manipulation: 3-4 regions Patient Response: positive Assessment Plan Problems 1. Acute left-sided low back pain with left-sided sciatica M54.42 2. Degeneration of intervertebral disc of lumbar region M51.36 3. Segmental and somatic dysfunction of cervical region M99.01 4. Segmental and somatic dysfunction of thoracic region M99.02 5. Segmental and somatic dysfunction of lumbar region M99.03 6. Segmental and somatic dysfunction of pelvic region M99.05 Plan Patient was evaluated and previous xrays were ordered which revealed decreased disc at L2/L3 and a transitional lumbar segment. Treated without incident. Follow up in 1 week. Orders Orders: Chiropractic Treatments Today M51.36, M54.9, M99.01, M99.02, M99.03, M99.05 Plan Detail Goals Decrease spasm Improve intersegmental motion Decrease inflammation Barriers DDD-lumbar Transitional segment Follow Up 1 Week Coding Level of Care Code Off vis,new,level 3 Diagnoses Acute left-sided low back pain with left-sided sciatica M54.42 ?Back pain location: low back pain ?Chronicity: acute ?Back pain laterality: left ?Sciatica presence: with sciatica ?Sciatica laterality: sciatica of left side Degeneration of intervertebral disc of lumbar region M51.36 Segmental and somatic dysfunction of cervical region M99.01 Segmental and somatic dysfunction of thoracic region M99.02 Segmental and somatic dysfunction of lumbar region M99.03 Segmental and somatic dysfunction of pelvic region M99.05 Additional Codes Procedures - Manipulation: 3-4 regions ([id number]) 04/11/20 1331 <Electronically signed by Aparna Larson D.C.> Date Aparna Larson D.C. Cosigner Signature: Date (if applicable) CC: Pradeep Gillespie Start: 01-08-2020 End: 01-08-2020 Stress Report Comments: See Note; NOTES: [facility] [address] [place] [address] MR#: [id number] Acct: [id number] Name: NAYA WILLIAMSON Rep #: [id number] : 1960 59 From: Nasir Shaffer MD Primary Care: Dr. Pradeep Gillespie MD Status: REG CLI Referring Dr: Pradeep Gillespie MD Sex: M C Stress Test Report Date: 01/07/2020 Procedure: Exercise tolerance test/imaging study Indications: Chest pain Consent: Per the patient Procedure: The patient exercised on a Nahid protocol for 12 minutes and 46 seconds achieving a peak heart rate of 155 bpm (95% predicted maximal heart rate) with a peak blood pressure 180/90 mmHg and a peak MET capacity of 14.8 METs. The baseline ECG demonstrated sinus bradycardia. The peak exercise ECG demonstrated sinus tachycardia with upsloping ST depressions in the inferior and lateral leads. No significant ischemic ST-T changes. Occasional PVCs. EKG during recovery revealed no significant ischemic changes [There were no cardiac dysrhythmias pretest, during exercise, or recovery]. The functional capacity was considered excellent for age. There was [no complaint of chest discomfort during exercise or recovery]. The examination was discontinued secondary to dyspnea. Impression: 1. Technically adequate (percent predicted maximal heart rate greater than 85%) exercise tolerance test 2. Stress test is negative for exercise-induced EKG changes of ischemia 3. The test test is negative for exercise-induced chest pain 4. Functional capacity is excellent for age 5. Nuclear images pending Myocardial perfusion imaging study: Technique: The patient was injected with 14.2 mCi of technetium 99m Cardiolite and subsequently rest SPECT Cardiolite nuclear imaging was obtained in the horizontal long, vertical long, and short axis views. The patient exercised on a Nahid protocol. Please see above for details. The patient was injected with 43.9 mCi of technetium 99m Cardiolite and subsequently stress SPECT Cardiolite nuclear imaging was obtained in the horizontal long, vertical long, and short axis views. A gated Cardiolite study at peak stress was obtained. Interpretation: Rest and stress SPECT Cardiolite nuclear imaging status post realignment, normalization, and attenuation correction, demonstrates normal myocardial radioisotope uptake. The gated Cardiolite study demonstrates no significant regional wall motion abnormalities. The reported LVEF is 65%. Impression: 1. There is no evidence of significant ischemia or infarction. 2. The gated Cardiolite study reports an LVEF of 65%. This note was generated with [employer] software. It may contain incorrect words, spelling, and punctuation that were not noted in checking the note before signing. 01/08/20 1544 <Electronically signed by Nasir Shaffer MD> Date Nasir Shaffer MD CC: Dr. Pradeep Gillespie MD Date Dictated: 01/08/20 1536 Date Transcribed: 01/08/201535 Computer Publisher: NN Signed Pradeep Gillespie Start: 12-15-2019 End: 12-31-[address] Comments: See Note; NOTES: [facility] Imaging Services [address] [place] [address] 12/15/19 1012 MR#: [id number] Acct: [id number] Name: NAYA WILLIAMSON Rep #: [id number] : 1960 59 From: Nasir Shaffer MD PCP: Dr. Pradeep Gillespie MD Status:REG CLI Y Location: CT Calcium Scoring Date of Study:: 12/10/19 Coronary Calcium Scoring: High-resolution Computed Tomographic imaging of the chest was performed on [ ], with particular attention paid to the coronary arteries. Images from the examination were analyzed for the presence and extent of coronary artery calcification , using coronary calcium quantification software. The patient tolerated the procedure well and there were no complications. The results of the coronary calcification analysis are provided below. - Findings Left Main (LM): 0 Left Anterior Descending (LAD): 0 Left Circumflex (LCX): 0 Right Coronary Artery (RCA): 0 Total Agatston Score: 0 Calcium Scoring Interpretation: 0 No identifiable atherosclerotic plaque. Very low cardiovascular disease risk. <5% chance of presence coronary artery disease A Negative Examination Conclusion: No identifiable atherosclerotic plaque. Very low cardiovascular disease risk. <5% chance of presence coronary artery disease 12/15/19 1014 <Electronically signed by Nasir Shaffer MD> Date Nasir Shaffer MD Cosigner Signature (if applicable): Date CC: Dr. Pradeep Gillespie MD Signed Pradeep Gillespie Work Phone: Start: 12-10-2019 End: 12-14-2019 TXT - Blood Flow Screening Comments: See Note; NOTES: [facility] [address] [place] [id number] 12/10/19 0803 MR#: [id number] Acct: [id number] Name: NAYA WILLIAMSON Rep #: [id number] : 1960 58 From: Aleksandr Solano MD Attending Dr: Dr. Pradeep Gillespie MD Status: REG REF Ordering Dr: Date: 12/10/19 Location: [facility] Sex: M C Admitted: Reason For Study: screening Carotid Duplex Ultrasound Abdominal Aorta The right ECA velocity is less than 125 cm/s. The maximal outside diameter of the proximal aorta The right maximum ICA velocity is 78.6/25.2 cm/s. measures 2.19 x 2.19 cm in the cross-sectional There is insignificant plaque formation noted on axis. the right side. The maximal outside diameter of the proximal aorta The left ECA velocity is less than 125 cm/s. measures 2.05 cm in the longitudinal axis. The left maximum ICA velocity is 61.7/27.8 cm/s. There is insignificant plaque formation noted on the left side. Ankle Brachial Index The right ankle/ brachial index is 1.2. The left ankle/ brachial index is 1.1. Medical History and Assessment The heart rate is 58 beats per minute. The heart rhythm is regular. The right blood pressure is 120/80. The left blood pressure is 126//82. The assessment was performed by Lino Johnson RVT. Interpretation Summary Normal carotid artery screening (0 to 15% narrowing). Normal aortic ultrasound exam. The ankle/brachial index is normal (1.0 or greater). _ Ordering Physician: Pradeep Gillespie M.D. Performed By: Parveen Johnson RVT 12/10/191933 Date Aleksandr Solano MD CC: Dr. Pradeep Gillespie MD Date Dictated: 12/10/19802 Date Transcribed: 12/10/191933 Computer Publisher: Signed Pradeep Gillespie Start: 12-10-2019 End: 12-10-[address] w/CCTA Comments: See Note; NOTES: [facility] Imaging Services [address] [place] [address] w/CCTA MR#: [id number] Acct: [id number] Name: NAYA WILLIAMSON Rep #: [id number] : 1960 M 58 From: Lee bello MD PCP: Dr. Pradeep Gillespie MD Status: [facility] Study: Limited Chest CT w/CCTA Date of Exam: 12/10/19 Exam# [id number] Ordering Dr: Pradeep Gillespie MD STUDY: CT CHEST WITHOUT CONTRAST REASON FOR EXAM: Male, 58 years old. CALCIUM SCORING, HYPERLIPIDEMIA RADIATION DOSAGE (If Supplied By Facility): CTDIvol = ( 12.19 ) mGy, DLP = ( 219.42 ) mGycm TECHNIQUE: Transaxial imaging was performed without the administration of intravenous contrast material. Overread examination. Individualized dose optimization techniques were used for this CT. COMPARISON: None. FINDINGS: The lungs are normal. There is no demonstrated pleural abnormality. There are calcifications of the coronary arteries. Normal mediastinum. Normal hilar regions. Normal unenhanced pulmonary arteries. There is minimal atherosclerotic plaque at the level of the aortic arch. Normal osseous structures. Small hiatal hernia. CT/Limited Chest CT w/CCTA IMPRESSION: Coronary artery calcification. The lungs are clear.. Electronically Signed: Lee Joseu, at 8:50 EDT , Service support , CC: Dr. Pradeep Gillespie MD Computer Publisher: Signed Pradeep Gillespie Work Phone: Start: 12-01-2007 Cinthia Hugo PA-C Work Phone: both tennis elbow mercado rgery in 40's Pradeep Gillespie Work Phone: both tennis elbow mercado rgery in 40's IAN Olguin both tennis elbow mercado rgery in 40's IAN Olguin both tennis elbow mercado rgery in 40's Bhargav Valero LPN both tennis elbow mercado rgery in 40's IAN Olguin RN NEW GRAD both tennis elbow mercado rgery in 40's Karishma Marcano RN NEW GRAD both tennis elbow mercado rgery in 40's Gini Monterroso CNP Work Phone: both tennis elbow mercado rgery in 40's Karishma Jeet RN NEW GRAD both tennis elbow mercado rgery in 40's Karishma Jete RN NEW GRAD Fractured nasal bone s (disorder) VERONICA JALLOH PA-C History of repair of inguinal hernia VERONICA JALLOH PA-C left ACL repair 30's Pradeep Dennyi Work Phone: left ACL repair 30's IAN Olguin left ACL repair 30's IANTREVER Olguin left ACL repair 30's Bhargav Valero RN [facility] GRAD left ACL repair 30's IAN Sharif RN NEW GRAD left ACL repair 30's Karishma C offman RN NEW GRAD left ACL repair 30's Gini Monterroso ASSEMBLER TESTER Work Phone: left ACL repair 30's Karishma C offman RN NEW GRAD left ACL repair 30's Karishma C offman RN NEW GRAD lung puncture/rib fractures ([place])--had chest tube 55 yo Pradeep Dennyi Work Phone: lung puncture/rib fractures (roll [employer] [place])--had chest tube 55 yo IAN Olguin lung puncture/rib fractures (roll [place])--had chest tube 55 yo IAN Olguin lung puncture/rib fractures ([employer] [place])--had chest tube 55 yo Bhargav Valero LPN lung puncture/rib fractures ([employer] [place])--had chest tube 55 yo IAN Olguin LPN lung puncture/rib fractures ([employer] [place])--had chest tube 55 yo Karishma Jeet ROBERTSONN lung puncture/rib fractures (roll [employer] [place])--had chest tube 55 yo Gini Monterroso ASSEMBLER TESTER Work Phone: lung puncture/rib fractures ([employer] [place])--had chest tube 55 yo Karishma Jeet RN [employer] GRAD lung puncture/rib fractures ([employer] [place])--had chest tube 55 yo Karishma Jeet RN [employer] GRAD nose surgery after i njury (felloff roof) Pradeep M Bonejamiei Work Phone: nose surgery after i njury (felloff roof) IAN Olguin nose surgery after i njury (felloff roof) IAN Olguin nose surgery after i njury (felloff roof) Bhargav Valero LPN nose surgery after i njury (felloff roof) IAN Olguin RN NEW GRAD nose surgery after i njury (felloff roof) Karishmasteve Marcano RN [employer] GRAD nose surgery after i njury (felloff roof) Gini Monterroso ASSEMBLER TESTER Work Phone: nose surgery after i njury (felloff roof) Karishma Jeet RN [facility] GRAD nose surgery after i njury (felloff roof) Karishmasteve Mattaman RN [facility] GRAD Repair of anterior cruciate ligament of knee joint RAY ESHENAUR PA-C Repair of musculotendinous cuff of shoulder RAY ESHENAUR PA-C Screening colonoscopy IAN Olguin Comment on above: 12-22-2019 Dr. Littlejohn normal re check 10 years Screening colonoscopy IAN Olguin Comment on above: 12-22-2019 Dr. Littlejohn normal re check 10 years Screening colonoscopy IAN Olguin Comment on above: 12-22-2019 Dr. Littlejohn normal re check 10 years Screening colonoscopy Bhargav Valero LPN Comment on above: 12-22-2019 Dr. Littlejohn normal re check 10 years Screening colonoscopy IAN Olguin LPN Comment on above: 12-22-2019 Dr. Littlejohn normal re check 10 years Screening colonoscopy Karishma Marcano LPN Comment on above: 12-22-2019 Dr. Littlejohn normal re check 10 years Screening colonoscopy Otto Monterroso ASSEMBLER TESTER Work Phone: Comment on above: 12-22-2019 Dr. Littlejohn normal re check 10 years Screening colonoscopy Karishma Marcano LPN Comment on above: 12-22-2019 Dr. Littlejohn normal re check 10 years Screening colonoscopy Karishma Marcano LPN Comment on above: 12-22-2019 Dr. Littlejohn normal re check 10 years shoulder surgery bot h rotator cuff right 51 yo, left 55yo Pradeep Gillespie Work Phone: shoulder surgery bot h rotator cuff right 51 yo, left 55yo IAN Olguin shoulder surgery bot h rotator cuff right 51 yo, left 55yo IAN Sharif shoulder surgery bot h rotator cuff right 51 yo, left 55yo Bhargav Valero RN [facility] GRAD shoulder surgery bot h rotator cuff right 51 yo, left 55yo IAN Olguin LPN shoulder surgery bot h rotator cuff right 51 yo, left 55yo Karishma Marcano RN [facility] GRAD shoulder surgery bot h rotator cuff right 51 yo, left 55yo Gini Monterroso ASSEMBLER TESTER Work Phone: shoulder surgery bot h rotator cuff right 51 yo, left 55yo Karishma Marcano RN [facility] GRAD shoulder surgery bot h rotator cuff right 51 yo, left 55yo Karishma Marcano RN NEW GRAD Plan of Treatment Date Care Activity Detail Author Start: 2036 RSV VACCINE (1 - 1-dose 75+ series) RSV VACCINE (1 - 1-dose 75+ series) [facility] Start: 01-07-2025 End: 01-07-2025 Patient encounter procedure 01/07/2025 1:30 PM EST [facility] [address] [place] [address] Cindy Taylor MD [address] [place] [id number] [facility] Start: 12-15-2024 End: 12-15-2025 [facility] Comment on above: Expected: 12/15/2024, Expires: 1 Occurrences starti ng 12/15/2024 until 12/15/2024 Start: 11-16-2024 End: 11-16-2025 CT Lumbar spine WO contrast CT SPINE LUMBAR WITHOUT CONTRAST Imaging Routine Spondylolisthesis, grade 1 Lumbar radiculopathy S/P lumbar fusion Expected: 11/16/2024, Expires: 11/16/2025 [facility] Comment on above: Expected: 11/16/2024, Expires: Start: 11-16-2024 End: 11-16-2025 MR Lumbar spine WO and W contrast IV MRI SPINE LUMBAR WITH AND WITHOUT CONTRAST Imaging Routine Spondylolisthesis, grade 1 Lumbar radiculopathy S/P lumbar fusion Expected: 11/16/2024, Expires: 11/16/2025 [facility] Comment on above: Expected: 11/16/2024, Expires: Start: 10-23-2024 End: 10-23-2024 [employer] Work Phone: Start: 10-19-2024 COVID-19 VACCINE ( season) COVID-19 VACCINE ( season) [facility] Start: 10-19-2024 COVID-19 VACCINE ( season) COVID-19 VACCINE ( season) [facility] Start: 10-19-2024 Influenza vaccination INFLUENZA VACCINE (#1) [facility] Start: 10-31-2023 End: 10-31-2023 Patient encounter procedure 10/31/2023 12:00 PM EDT [facility] [address] [place] [address] Cindy Taylor MD [address] [place] [address] [facility] Start: 10-20-2023 Influenza vaccination INFLUENZA VACCINE (#1) [facility] Start: 10-19-2022 COVID-19 VACCINE ( season) COVID-19 VACCINE ( season) [facility] Start: 10-19-2022 Influenza vaccination INFLUENZA (#1) [facility] Start: 06-26-2022 Procedure Education Eprescribed prescriptions (G8553) [facility] Work Phone: Start: 06-26-2022 Blood count complete auto&auto difrntl wbc CBC, PLATELETS & AUT DIFF (03214) [facility] Work Phone: Start: 04-12-2022 Procedure Education Eprescribed prescriptions (G8553) [facility]; [facility] Work Phone: Start: 03-26-2022 Iaadiadoo influenza Inhouse FLU A+B DIRECT AG, (RAPID) (33670) [facility]; [facility] Work Phone: Start: 03-26-2022 INHOUSE COVID 19 (ONLY) RAPID (32227) INHOUSE COVID 19 (ONLY) RAPID (43852) [facility]; [facility] Work Phone: Start: 03-26-2022 Procedure Education Eprescribed prescriptions (G8553) [facility]; [facility] Work Phone: Start: 03-26-2022 Provider Instructions for Treatment Follow up if no improvement or if symptoms worsen [facility] Work Phone: Start: 02-18-2022 DEPRESSION ASSESSMENT DEPRESSION ASSESSMENT [facility] Start: 02-13-2022 Procedure Education Eprescribed prescriptions (G8553) [facility]; [facility] Work Phone: Start: 01-25-2022 Procedure Education Eprescribed prescriptions (G8553) [facility]; [facility] Work Phone: Start: 05-08-2021 Tetanus vaccination TETANUS [facility] Start: 05-08-2021 Urine microalbumin profile DTAP,TDAP,TD (2 - Td or Tdap) [facility] Start: 02-23-2021 [place]adiadoo influenza 2019 Novel Coronavirus (COVID-19), CASSIDY (86838) [facility]; [facility] Work Phone: Start: 12-01-2020 Assay of iron Iron (43662) [facility] Work Phone: Start: 07-06-2020 Procedure Education Eprescribed prescriptions (G8553) [facility]; [facility] Work Phone: Start: 07-06-2020 Provider Instructions for Treatment COVID SCREENING FORM [facility]; [facility] Work Phone: Start: 12-29-2019 Troponin I.cardiac [Mass/Vol] Troponin I (95990) [facility] Work Phone: Comment on above: today Start: 12-29-2019 Hepatic function panel HEPATIC FUNCTION PANEL (81062) [facility] Work Phone: Comment on above: due 06-08 Start: 12-29-2019 Lipid panel Lipid Panel (25749) [facility] Work Phone: Comment on above: due 06-08 Start: 11-19-2019 Organic acid 1 quantitative Methymalonic Acid, Serum (26645) [facility] Work Phone: Comment on above: today Start: 11-19-2019 Cobalamin (Vitamin B12) [Mass/Vol] Vitamin B-12 (cyanocobalamin) (79783) [facility] Work Phone: Comment on above: today Start: 11-19-2019 Lipoprotein blood shania numbers & subclasses NMR Profile (05497) [facility] Work Phone: Comment on above: in six months (approximately) Start: 11-03-2019 Assay of prostate specific antigen total PSA (Prostate Specific Antigen), Screening (11429) [facility] Work Phone: Start: 09-10-2019 Hepatitis c antibody HEPATITIS C ANTIBODY (92861) [facility] Work Phone: Start: 2016 PROSTATE CANCER SCREENING DISCUSSION PROSTATE CANCER SCREENING DISCUSSION [facility] Start: 2016 Prostate specific antigen measurement PROSTATE CANCER SCREENING DISCUSSION [facility] Start: 11-30-2012 Colonoscopy COLONOSCOPY [facility] Start: 11-30-2012 COLORECTAL CANCER SCREENING COLORECTAL CANCER SCREENING [facility] Start: 05-25-2012 DIABETES SCREEN DIABETES SCREEN [facility] Start: 12-14-2011 Pneumococcal vaccination PNEUMOCOCCAL VACCINE SERIES (1 of 1 - PCV) [facility] Start: 12-14-2011 Prostate specific antigen measurement PROSTATE CANCER SCREENING DISCUSSION [facility] Start: 12-14-2011 SHINGRIX VACCINE (1 of 2) SHINGRIX VACCINE (1 of 2) [facility] Start: 12-14-2011 Zoster vaccine hzv live for subcutaneous use ZOSTER (SHINGLES) VACCINE (1 of 2) [facility] Start: 2006 COLOGUARD (FIT-DNA) COLOGUARD (FIT-DNA) [facility] Start: [address] COLONOGRAPHY [facility] Start: 2006 FECAL OCCULT BLOOD FECAL OCCULT BLOOD [facility] Start: 2006 Screening for malignant neoplasm of colon COLORECTAL CANCER SCREENING DISCUSSION [facility] Start: 2006 SIGMOIDOSCOPY SIGMOIDOSCOPY [facility] Start: 04-05-2005 LIPID SCREEN LIPID SCREEN [facility] Start: 2001 Lipid panel LIPID SCREENING [facility] Start: 12-14-1979 HEPATITIS C SCREENING HEPATITIS C SCREENING [facility] Start: 12-14-1979 HIV SCREENING HIV SCREENING [facility] Start: 1976 HIV screening HIV SCREENING DISCUSSION [facility] Start: 06-13-1962 COVID-19 VACCINE (#1) COVID-19 VACCINE (#1) [facility] Start: 1960 Hepatitis C screening HEPATITIS C VIRUS SCREENING [facility] Patient Education RAD RN Myelogram [facility] Work Phone: Patient referral [facility] Work Phone: [facility] Work Phone: [facility] Work Phone[facility] Work Phone[facility] Work Phone: [facility] Work Phone[facility] Work Phone: [facility] Work Phone: [facility] Work Phone: Immunizations Immunization Date Immunization Notes Care Provider Kenzie claire 05-09-2011 tetanus toxoid, redu elisa diphtheria toxoid, and acellular pertussis vaccine, adsorbed Rayray Maikel CHAVEZ Work Phone: [facility] Work Phone: Payers Date Payer Category Payer Unknown [id number] 2023 Medicare (Managed Care) 1893 75 [id number] 2023 Unknown [id number] 2022 Self-pay 1960 Unknown [id number] [id number] [id number] 1960 Unknown 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 2 to 3 cups qd Alcohol Use: Alcohol Use: [facility] Work Phone: Comment on above: beer or wine every c ouple weeks Exercise History: Exercise History: [facility]pr [facility] Work Phone: Living Situation: Living Situation: [facility] Work Phone: Comment on above: elder at [facility] Alcohol Use: Alcohol Use: [facility] Work Phone: Comment on above: beer or wine every c ouple weeks Exercise History: Exercise History: [facility]pr [facility]; [facility] Work Phone: Living Situation: Living Situation: [facility]; [facility] Work Phone: Comment on above: elder at [facility] Start: 12-26-2018 End: 12-09-2024 Tobacco smoking status Never smoked tobacco (finding) [facility] Sex Assigned At Sex [facility] Start: 03-29-2011 End: 12-09-2024 Tobacco use and exposure Smokeless tobacco non-user [facility] Start: 10-27-2022 Alcohol intake Current drinke r of alcohol (finding) [facility] Start: 10-27-2022 End: 12-09-2024 Tobacco use panel [facility] Adult Depression Screening Assessment 0 [facility] Start: 1960 Sex Assigned At Not on file [facility] Tobacco smoking stat [facility] Tobacco smoking consumption unknown [facility] Start: 08-01-2023 End: 05-15-2024 Sex Male (finding) [facility] Start: 1960 Sex Assigned At Male [facility] Goals Date Patient Goal Desired Activity /State Functional Status Date Assessment Result Facility 07-11-2022 Functional Status Home Living Ad ditional Information Objective: Cardiovascular screen: BP: 130/82 HR: 49 BPM O2 sat: 97% Gait: Mild antalgic gait without AD. Improved with use of a single tip cane. Weight bearing status: WBAT Observation: no excess warmth or obvious signs of infection. Effusion: min to no Leg effusion, no calf swelling or tenderness. Functional Strength: able to perform partial arc quad. Sit to stand: RUI relies heavily on U E assist. Palpation: Tender to Palpation. Denies calf pain or tenderness. Neurological Screen: sensation is grossly intact and symmetrical to light touch [facility]at [facility] LP-IR Score LP-IR Score 80 [facility] Work Phone: Comment on above: INSULIN RESISTANCE MARKER <--Insulin Sen sitive Insulin Resistant--> Percentile in Reference PopulationInsulin Resistance ScoreLP-IR Score Low 25th 50th 75th High <27 27 45 63 >63LP-IR Score is inaccurate if patient is non-fasting. .The LP-IR score is a laboratory developed index that has beenassociated with insulin resistance and diabetes risk and should beused as one component of a physician's clinical assessment. in six months (appro ximately); Test(s) 978643-FTB-V; 050135-EXK-H; 987600-Fabzvwzgroeai; 280404-Vndvlladffw, Total; 497271-IIG-D (Total); 555969-Rqira LDL-P; 270092-QJV Size; 900022-MR-DX Scorewas developed and its performance characteristics determinedby [facility]. It has not been cleared or approved by the Foodand Drug Administration.A duplicate report has been generated due to demographic updates.PATIENT NOT FASTINGPERFORMED BY: BN [facility] [id number] [facility] [id number] BY: CB [facility] [id number] [facility] [id number] Information: BILLING TYPE CHANGED PER PRADEEP GILLESPIE 11/25/19 Mental Status Date Assessment Result Facility 05-06-2024 Cognitive function Level Of Cons ciousness Awake;Alert;Appropriate [facility] Work Phone: Clinical Notes 10-27-2022 to 12-15-2024 Flora Browning MD - 12/15/2024 9:00 AM EDTPatient InstructionsWhsarah Browning MD - 12/15/2024 9:00 AM EDTWhsarah Browning MD - 12/15/2024 9:00 AM EDTBrian Preston Jr., PA-C - 12/09/2024 10:40 AM EDT Note Date & Type Note Facility 12-15-2024 History of Present illness Narrative Referring Provider: Brian Preston Jr., PA-C [address] [place] [address] CC: pain HPI: Rickey Williamson is a 64 y.o. male presenting with pain. Patient is here for planned injection. No anti-coagulation or steroid use, no open wounds, no recent infections, no antibiotic use, and no recent dental procedures. PMH: Past Medical History[1] PSH: Past Surgical History[2] Current medications: Current Medications[3] Allergy: Patient has no known allergies. Family Hx: No family history on file. Soc/Functional Hx: Social History Socioeconomic History Marital status: Spouse name: Not on file Number of children: Not on file Years of education: Not on file Highest education level: Not on file Occupational History Not on file Tobacco Use Smoking status: Never Smokeless tobacco: Never Substance and Sexual Activity Alcohol use: Not on file Drug use: Not on file Sexual activity: Not on file Other Topics Concern Not on file Social History Narrative Not on file Social Drivers of Health Financial Resource Strain: Not on file Food Insecurity: Not on file Transportation Needs: Not on file Physical Activity: Not on file Stress: Not on file Social Connections: Not on file Personal Safety: Not on file Housing Stability: Not on file ROS (relevant): General/Constitutional: No fevers, night sweats, unintentional wt loss Eyes: No acute vision changes Respiratory: No dyspnea Cardio: No Chest pain GI: No bowel dysfunction : No bladder dysfunction MSK: +pain Neuro: No weakness, no saddle anesthesia Heme: No easy bruising, bleeding Psych: No acute mood changes, SI or HI Skin: No new rashes Heme: No jaundice Physical Examination: BP 144/77 Pulse 54 Temp 98.4 F (36.9 C) (Infrared) Ht 1.854 m (6' 1) Wt 93 kg (205 lb) BMI 27.05 kg/m Smoking Status Never BMI = Body mass index is 27.05 kg/m . General: pleasant, cooperative, NAD HEENT: EOMI. Tracking in room Heart: RRR. Lungs: Unlabored breathing Abd: soft, non-tender Ext: No pedal edema Skin: warm and dry. No dysesthesia/allodynia Heme: Non-jaundiced Lymph: No palpable lymph nodes MSK: Non-tender lumbar paraspinals Neurological: Alert and oriented. CN II-XII intact LE MMT: moving all limbs spontaneously and at least anti-gravity throughout Sensation: grossly intact to LT over BLE Tone: normal Gait: normal Diagnostic studies (reviewed with and explained to pt): Radiology results: No results found for: CREATURINE, CREATFLUID, CREATSERUM, BUN, SODIUM, POTASSIUM, CHLORIDE, CO2 No results found for: ALT, TRANSFERASEA, AST, GGT, GAMMAGT, ALKPHOS, BILITOTAL, BILIDIRECT No results found for: WBC, WBCCOUNT, WBCFETAL, HGB, HCT, PLATELET, MCV No results found for: INR, PT No results found for: SEDRATE Problem List: Lumbar DDD 2. Left lumbar radiculitis Assessment: Left L4 transforaminal epidural steroid injection today. See procedure note for details Flora Browning MD [employer] Rehabilitation Interventional Pain Physician Professor - Clinical [facility] [1] No past medical history on file. [2] No past surgical history on file. [3] Current Outpatient Medications Medication Sig Dispense Refill Diazepam 10 MG tablet Take 1 x mouth 30-45 minutes prior to MRI. Okay to take 1 afterwards PRN for spasms/anxiety (Patient not taking: Reported on 12/09/2024) 2 tablet 0 Meloxicam 15 MG tablet (Patient not taking: Reported on 12/09/2024) oxyCODONE-acetaminophen 5-325 MG per tablet pregabalin 75 MG capsule No current facility-administered medications for this visit. documented in this encounter [facility] 12-15-2024 Instructions Marlo Singh RN - 12/15/2024 9:00 AM EDT Images from the original note were not included. HOME CARE INSTRUCTIONS These instructions will help you care for yourself, or be cared for when you return home today. MEDICINES: You may take any NON-ASPRIN over the counter medicine for pain as it is directed. You may take all your usual medicines, including pain medicines. Re-Start your blood thinners tomorrow, and hold them as you were instructed before by your Physician. SITE CARE: Remove any band-aid from the injection site after six (6) hours. For Comfort you may apply ice packs to the site for the FIRST forty eight (48) hours, but for only ten (10) to fifteen (15) minutes at a time. After forty eight (48) hours, use a warm heating pad to the site, for only ten (10) to fifteen (15) minutes at a time. Be sure to NEVER place an Ice Pack or Heating Pad directly on the skin. Always wrap them in a light towel or cloth to protect the skin from freezing or burning ACTIVITY: Rest, and limit your activity for the remainder of the day. Tomorrow, you may return to work or school. If you have weakness or numbness anywhere caused by the injection, limit your activity until sensation returns to normal. You may Shower after 24 hours of your injection. Do Not soak in a bath tub, Hot tub, or go swimming for 5 days. DIET: Drink at least six (6) to eight (8) cups of Fluid and eat your normal diet today. WHAT TO EXPECT AFTER THE INJECTION: Some soreness and bruising at the injection sites. CALL THE [facility] AT [phone] FOR: Any severe headache that develops in the next forty eight (48) hours. Any unusual increase in your level of pain. Any unexpected swelling, weakness, skin rash, itching or fever. If it is after hours or on a weekend, call your family doctor or visit the nearest emergency room. FOLLOW UP At your next appointment, be sure to be ready to tell the doctor: When you felt relief from the pain. The level of relief you felt. If your pain got worse, and if so, how much worse. If you have any problems, or questions. Please call the [facility] nurse at [phone]. Talk to your doctor or others on your health care team, if you have questions. You may request more written information from the [facility] at or e-mail: [email or web address] Bupivacaine/Lidocaine (Injection) Bupivacaine (bhe-PZV-d-martínez), Lidocaine (STO-yrg-dyko) Causes numbness! Brand Name(s): There may be other brand names for this medicine. When This Medicine Should Not Be Used: You should not receive this medicine if you have had an allergic reaction to bupivacaine, lidocaine, or certain other types of local anesthetic (numbing medicine). You should not receive this medicine if you have certain heart rhythm problems such as Fgjya-Okejljzsd-Aboxb syndrome, Cornelius-Whitlock syndrome, or severe heart block, unless you have a pacemaker. How to Use This Medicine: Drugs and Foods to Avoid: Ask your doctor or pharmacist before using any other medicine, including amrk-vot-tjnwrnr medicines, vitamins, and herbal products. Make sure your doctor knows if you are taking heart or blood pressure medicine such as digoxin (Lanoxin ), atenolol (Tenormin ), propranolol (Inderal ), or metoprolol (Lopressor ). Make sure your doctor knows about any other medicine you have used recently. Warnings While Using This Medicine: Make sure your doctor knows if you are or breast feeding. You may need to stop breast feeding for a short time after receiving this medicine. Make sure your doctor knows if you have high blood pressure, low blood pressure, or other circulation problems. Tell your doctor if you have heart problems, such as congestive heart failure or heart rhythm problems. Make sure your doctor knows if you have liver disease, or any other health problems or drug allergies. Possible Side Effects While Using This Medicine: Call your doctor right away if you notice any of these side effects: Allergic reaction: Itching or hives, swelling in your face or hands, swelling or tingling in your mouth or throat, chest tightness, trouble breathing Dizziness, drowsiness, confusion (trouble thinking), seizures (convulsions), or fainting. Nausea or vomiting. Loss of feeling or movement to your eye that lasts longer than your doctor told you to expect. Loss of feeling or movement that happens somewhere else in your body other than the area that was numbed for treatment. Restlessness, anxiety. Ringing in the ears. Sudden or severe headache, or problems with vision, speech, or walking. Tremors, shaking, or chills. Trouble urinating, or new problems controlling when you urinate or have a bowel movement. Uneven, pounding, fast, or slow heartbeats. If you notice other side effects that you think are caused by this medicine, tell your doctor. Call your doctor for medical advice about side effects. You may report side effects to FDA at 6-532-BYI-3974 Radiological Ionic Contrast Media (Injection) Makes parts of your body show up better during an imaging test, such as a CT scan. Contrast media (dye) can be used for making images of many different body parts, including your kidneys, head, heart, or blood vessels. Brand Name(s):Cystografin-Dilute , Cystografin , Sinografin , Multihance , Feridex IV , Optimark , Cholografin Meglumine There may be other brand names for this medicine. When This Medicine Should Not Be Used: Make sure your doctor and the person who gives you this medicine know if you have had an allergic reaction to any contrast dye. How to Use This Medicine: Injectable Your doctor will prescribe your exact dose and tell you how often it should be given. This medicine can be given different ways, depending on what part of your body the doctor needs to see. This medicine may be given through a needle or catheter (plastic tube) placed in one of your veins. A nurse or other trained health professional will give you this medicine. You might also receive other medicine before you are given the contrast dye. Tell your caregiver right away if any of this medicine gets on your skin. A caregiver might need to take your blood pressure, temperature, or pulse during the test. You might need to stay for awhile after the test is done. Drugs and Foods to Avoid: Ask your doctor or pharmacist before using any other medicine, including oqiz-xdd-mykjugp medicines, vitamins, and herbal products. Make sure your doctor knows about all other medicines you are using. Different contrast dyes have different drug and food concerns. Some other things that affect other drugs and foods are what kind of test is being done and what part of your body is being tested. Make sure your doctor knows if you are also using a blood thinner such as warfarin (Coumadin ). Warnings While Using This Medicine: Make sure your doctor knows if you are or . Make sure your doctor knows if you have severe kidney problems or liver disease. Also tell your doctor if you have just had a liver transplant or if you are going to have a transplant. The use of a gadolinium-based contrast agent (GBCA) during an MRI should be avoided in patients with severe kidney problems, patients with severe kidney problems due to a severe liver disorder (hepato-renal syndrome), or patients with severe kidney problems before, during, or after a liver transplant. The risk of nephrogenic systemic fibrosis (NSF), a very serious disease affecting the skin, muscle, and internal organs, may be increased. Your doctor may do some tests before your MRI to make sure your kidneys are working properly. Even if you have kidney problems or liver disease, your doctor may decide that it is still important to use the contrast dye. If you are on hemodialysis and treated with this contrast dye, your doctor may perform hemodialysis immediately after you receive the contrast agent. Tell your doctor and the person who does the test if you are allergic to iodine, or if you have asthma or any type of allergy. This includes hay fever and food allergy. Make sure your health caregiver knows if you have diabetes, sickle cell disease, thyroid problems, or pheochromocytoma (a tumor on the adrenal gland). Tell your caregiver if you have cancer, especially if you have multiple myeloma. Make sure your doctor knows if you have high blood pressure, blood circulation problems, or heart disease. Make sure any doctor or dentist who treats you knows that you are using this medicine. This medicine may affect the results of certain medical tests. The specific test you are having might have its own side effects or risks. Talk with you health caregiver about the test and what you should expect during and after the test. Possible Side Effects While Using This Medicine: Call your doctor right away if you notice any of these side effects: Allergic reaction: Itching or hives, swelling in your face or hands, swelling or tingling in your mouth or throat, chest tightness, trouble breathing Chest pain. Fever. Light-headedness or fainting. Muscle pain, stiffness, or weakness. Seizure. Severe pain while the dye is being injected, or stomach or back pain afterwards. Shakiness, fast heartbeat, trouble breathing. Skin swelling, hardness, tightness, burning, itching, or red or dark patches. Stiff joints or trouble moving, deep bone pain. Sudden or severe headache. Yellow spots on your eyes. If you notice these less serious side effects, talk with your doctor: Mild skin tingling, burning, or pain where the needle is placed. Nausea, vomiting. Warmth or redness in your face, neck, arms, or upper chest. If you notice other side effects that you think are caused by this medicine, tell your doctor. Call your doctor for medical advice about side effects. You may report side effects to FDA at 3-051-ZQW-1088 [phone] [employer]. All rights reserved. Radiological Ionic Contrast Media (Injection) (Injectable) - Catarina, Estonian Generated on Wednesday, December 21, 2011 1:45:02 PM Methylprednisolone (Injection) Methylprednisolone (kugk-bk-ygfh-NIS-oh-lone) Treats inflammation, severe allergies, flare-ups of ongoing illnesses, and many other medical problems. May also be used to decrease some symptoms of cancer. This medicine is a corticosteroid (cortisone-like medicine or steroid). Brand Name(s):Depo-Medrol , Novaplus Depo-Medrol , Depo Medrol , Solu-Medrol , A-Methapred , Novaplus Solu-Medrol , Solu Medrol There may be other brand names for this medicine. When This Medicine Should Not Be Used: You should not receive this medicine if you have had an allergic reaction to methylprednisolone or if you have a fungus infection that affects your whole body. You should not have this medicine injected into a muscle if you have idiopathic thrombocytopenic purpura. Some strengths of Solu-Medrol that contain benzyl alcohol should not be used in premature babies. How to Use This Medicine: Injectable A nurse or other trained health professional will give you this medicine. This medicine may be given through a needle placed in one of your veins or as a shot into a muscle. A nurse or other trained health professional will give you this medicine. Your doctor may give you a few doses of this medicine until your condition improves, and then switch you to an oral medicine that works the same way. If you have any concerns about this, talk to your doctor. If a dose is missed: This medicine needs to be given on a fixed schedule. If you miss a dose or forget to use your medicine, call your doctor or pharmacist for instructions. Drugs and Foods to Avoid: Ask your doctor or pharmacist before using any other medicine, including xsqt-qkw-nujilex medicines, vitamins, and herbal products. Make sure your doctor knows if you are also using aminoglutethimide (Cytadren ), amphotericin B (Fungizone ), carbamazepine (Tegretol ), cholestyramine (Questran ), cyclosporine (Gengraf , Neoral , Sandimmune ), digoxin (Digitek , Lanoxin ), isoniazid (Nydrazid ), ketoconazole (Nizoral ), pancuronium (Pavulon ), phenobarbital (Luminol ), phenytoin (Dilantin ), rifampin (Rifadin , Rimactane ), or certain antibiotics (such as clarithromycin, erythromycin, Biaxin , Ankit-tab , or Zithromax ). Tell your doctor if you are also using a diuretic or water pill, a blood thinner (such as warfarin, Coumadin ), pain or arthritis medicine (NSAIDs such as aspirin, celecoxib, ibuprofen, Advil , Aleve , Celebrex , or Motrin ), insulin or diabetes medicine that you take by mouth (such as glyburide, metformin, Actos , Amaryl , Avandia , Glucotrol , or Glucovance ), or estrogen (including control pills and hormone replacement therapy). Talk to your doctor before getting flu shots or other vaccines while you are receiving this medicine. Vaccines may not work as well, or they could make you ill while you are using this medicine. Warnings While Using This Medicine: Make sure your doctor knows if you are or , or if you have recently spent time in a tropical climate. Make sure your doctor knows about all other health problems you have, including kidney disease, liver disease, heart disease, diabetes, or stomach or bowel problems. Tell your doctor if you have adrenal gland problems (such as Archana syndrome), nerve or muscle disease (such as myasthenia gravis), thyroid problems, or a recent heart attack. If this medicine is being injected into a joint, make sure your doctor knows about any other problems you have had with that joint. Tell your doctor right away if you have a fever or other signs of an infection such as chills, sore throat, or pain. This medicine could cause you to get infections more easily. If you are exposed to chicken pox or measles, tell your doctor right away. Avoid people who are sick, and wash your hands often. Make sure your doctor knows if you already have an infection, such as herpes eye infection, tuberculosis, or threadworm (Strongyloides). Tell your doctor if you have diarrhea or if you get infections often. Do not stop using this medicine suddenly without asking your doctor. You may need to slowly decrease your dose before stopping it completely. This medicine may cause mood or behavior changes. Talk with your doctor if you feel unusually happy or sad, have trouble sleeping, have mood swings, or start to have unusual behavior. If you use this medicine for a long time, tell your doctor about any extra stress or anxiety in your life, including other health concerns and emotional stress. Your dose might need to be changed for a short time while you have extra stress. Tell your doctor if you have any bone pain or if you have an increased risk for osteoporosis (weak bones). If your child is using this medicine, tell the doctor if you think your child is not growing properly. This medicine might affect the bones, so it could cause slow growth in children or osteoporosis in anyone if it is used for a long time. Check with your doctor right away if you have blurred vision, trouble seeing, eye pain, or any other changes in vision. You may need to be checked by an eye doctor. Make sure any doctor or dentist who treats you knows that you are using this medicine. This medicine may affect the results of certain medical tests. Your doctor will need to check your blood or urine at regular visits while you are using this medicine. Be sure to keep all appointments. Possible Side Effects While Using This Medicine: Call your doctor right away if you notice any of these side effects: Allergic reaction: Itching or hives, swelling in your face or hands, swelling or tingling in your mouth or throat, chest tightness, trouble breathing Blurred vision, eye pain, changes in vision Dry mouth, increased thirst, muscle cramps, nausea, or vomiting Fast, slow, pounding, or uneven heartbeat Fever, chills, cough, sore throat, and body aches Mood swings, unusual thoughts or behavior Muscle pain, weakness, or cramps, sudden joint pain Swelling in your hands, ankles, or feet Unusual bleeding or bruising If you notice these less serious side effects, talk with your doctor: Color changes on the skin, dark freckles Diarrhea Easy bruising Increased thirst or urination Red, pink, purple, or brown flat spots or bumps on your skin Round, puffy face Skin looks sunken or indented where the shot was given If you notice other side effects that you think are caused by this medicine, tell your doctor. Call your doctor for medical advice about side effects. You may report side effects to FDA at 9-057-ECJ-3047 documented in this encounter [facility] 12-15-2024 Procedure note Associated Ord er(s): LEFT L4 TRANSFORAMINAL EPIDURAL STEROID INJECTION Post-Procedure Diagnose(s): Lumbar radiculopathy LEFT L4 TRANSFORAMINAL EPIDURAL STEROID INJECTION Date/Time: 12/15/2024 9:00 AM Performed by: Flora Browning MD Authorized by: Flora Browning MD Procedure Details: Procedure performed: lumbar HENRY - transforaminal After informed consent was obtained, the patient was escorted back to the procedure room and placed in the prone position on the procedure table. Verbal verification and time-out was performed and all present were in agreement. The patient was sterilely prepped and draped in usual fashion with chlorhexidine and Chloraprep gluconate 4% antiseptic solution. Procedure guidance: fluoroscopy with digital subtraction angiography The fluoroscope was brought into the field and a PA image was obtained to identify the appropriate vertebral body. The anterior and posterior aspects of the superior endplate of the vertebral body were superimposed upon one another. The fluoroscope was then rotated in an oblique angle toward the left such that the superior articulating process was positioned midway between the anterior and posterior aspects of the vertebral body superior endplate. The skin and subcutaneous tissues overlying the proposed needle entry site were anesthetized with 6 mL of lidocaine 1%. A 22 G 5.0 inch spinal needle was advanced to the subpedicular area. Needle depth was periodically evaluated using fluoroscopic imaging. Correct final needle position was confirmed with anteroposterior fluoroscopic imaging. Under live fluoroscopy 2 mL Iohexol 300 MG/ML was injected following negative aspiration for heme and air. Adequate contrast spread was confirmed. Medication Verification: I have personally verified and performed the final check of the medication(s) used in this procedure prior to administration. The following items were included during the verification process for medication(s) administered: drug name, strength, volume, expiration, physical integrity and appearance of the medication(s). A solution of 80 mg methylPREDNISolone acetate 80 MG/ML; 2 mL BUPivacaine (PF) 0.25 % was divided equally among the affected levels and injected. After completion of the injection, the needle was flushed and removed. The above listed procedure was done for: Left L4 Post Procedure Details: Complications: none The procedure was tolerated well. The patient was transported to the recovery room where they were observed for at least 20 minutes prior to discharge. The patient was discharged to home. They were advised to contact the office with any questions or concerns. Comments: Due to scar tissue and bony overgrowth, patient had severe pain on advancement of needle. Additional 3 cc of lidocaine 1% used prior to contrast. Pre-Procedure Details I have personally evaluated this patient on the day of service, and personally supervised the procedures as they were performed or performed any portion of the procedures myself. I have personally evaluated this patient on the day of service, and personally supervised the procedures as they were performed or performed any portion of the procedures myself. Pre Procedure Details: Informed consent was obtained. Risks and benefits were explained to the patient and they wish to proceed. We discussed risks (pain, bleeding, infection, CSF leak, positional headache, artery injury, paralysis, nerve injury, medication allergy, seizure, stroke and ), benefits (pain relief and increase in function and improvement of QoL), and process involved. [facility] 12-15-2024 Procedure note Associated Ord er(s): LEFT L4 TRANSFORAMINAL EPIDURAL STEROID INJECTION Post-Procedure Diagnose(s): Lumbar radiculopathy LEFT L4 TRANSFORAMINAL EPIDURAL STEROID INJECTION Date/Time: 12/15/2024 9:00 AM Performed by: Flora Browning MD Authorized by: Flora Browning MD Procedure Details: Procedure performed: lumbar HENRY - transforaminal After informed consent was obtained, the patient was escorted back to the procedure room and placed in the prone position on the procedure table. Verbal verification and time-out was performed and all present were in agreement. The patient was sterilely prepped and draped in usual fashion with chlorhexidine and Chloraprep gluconate 4% antiseptic solution. Procedure guidance: fluoroscopy with digital subtraction angiography The fluoroscope was brought into the field and a PA image was obtained to identify the appropriate vertebral body. The anterior and posterior aspects of the superior endplate of the vertebral body were superimposed upon one another. The fluoroscope was then rotated in an oblique angle toward the left such that the superior articulating process was positioned midway between the anterior and posterior aspects of the vertebral body superior endplate. The skin and subcutaneous tissues overlying the proposed needle entry site were anesthetized with 6 mL of lidocaine 1%. A 22 G 5.0 inch spinal needle was advanced to the subpedicular area. Needle depth was periodically evaluated using fluoroscopic imaging. Correct final needle position was confirmed with anteroposterior fluoroscopic imaging. Under live fluoroscopy 2 mL Iohexol 300 MG/ML was injected following negative aspiration for heme and air. Adequate contrast spread was confirmed. Medication Verification: I have personally verified and performed the final check of the medication(s) used in this procedure prior to administration. The following items were included during the verification process for medication(s) administered: drug name, strength, volume, expiration, physical integrity and appearance of the medication(s). A solution of 80 mg methylPREDNISolone acetate 80 MG/ML; 2 mL BUPivacaine (PF) 0.25 % was divided equally among the affected levels and injected. After completion of the injection, the needle was flushed and removed. The above listed procedure was done for: Left L4 Post Procedure Details: Complications: none The procedure was tolerated well. The patient was transported to the recovery room where they were observed for at least 20 minutes prior to discharge. The patient was discharged to home. They were advised to contact the office with any questions or concerns. Comments: Due to scar tissue and bony overgrowth, patient had severe pain on advancement of needle. Additional 3 cc of lidocaine 1% used prior to contrast. Pre-Procedure Details I have personally evaluated this patient on the day of service, and personally supervised the procedures as they were performed or performed any portion of the procedures myself. I have personally evaluated this patient on the day of service, and personally supervised the procedures as they were performed or performed any portion of the procedures myself. Pre Procedure Details: Informed consent was obtained. Risks and benefits were explained to the patient and they wish to proceed. We discussed risks (pain, bleeding, infection, CSF leak, positional headache, artery injury, paralysis, nerve injury, medication allergy, seizure, stroke and ), benefits (pain relief and increase in function and improvement of QoL), and process involved. documented in this encounter [facility] 12-09-2024 History of Present illness Narrative 63 y/o Rickey Williamson is seen in re-evaluated to go over his recent CT scan lumbar as well as MRI with and without contrast. Both have been Recently completed at [facility] 12/02/2024 This is in follow-up to his 11/16/2024 appointment with me. MRI Postop changes noted side of his prior L3-5 unilateral fixation fusion construct on the left. Appears to have a disc herniation under the fusion L3-4 left. Also radiologist reports some increased stress reaction noted about the left L3 pedicle screw. Has a appear to have a chronic extraforaminal disc herniation at L1/2 on the left. No evidence of infection. Does appear to have some peripheral peridural scarring noted intrathecally/arachnoiditis at L4/[address] scan w/o contrast reveals a posterolateral solid fusion unilaterally L4-5 on the left across the facet joint. L3-4 reveals no evidence of facet joint fusion, 9 weeks out from most recent surgery. Per my read does not appear that he has a significant SI joint pathology. Has some subtle air noted in the SI joint on the right. No evidence of any fractures. Clinically his left L4 radiculopathy. Recalcitrant. Severe. At rest has very little to no leg pain. When he is up and walking pain emanates from the lateral gluteal area down the anterior thigh crossing knee into the top of the foot. Consistent with L4 symptoms. Denies any significant posterior thigh and lateral thigh. Denies any right-sided symptoms. Still remains taking 300 mg of Lyrica per day in addition to 3 oxycodone a day. Had some minimal relief with tapering steroid provided recently. He has not had any recent epidurals. Sounds like he is scheduled with a pain doctor for left SI joint injection up in [facility]. Oswestry low back score 64 Patient denies any bowel bladder changes no fever or chills. He is accompanied today by his . Still requires a wheeled walker in the community for ambulatory aid. I did inquire about his left hip. He has had prior left total hip arthroplasty. Said that he had his local hip surgeon evaluated him just prior to his most recent lumbar surgery. Hip surgeon felt that there was no pain coming from the hip joint itself. Past Medical History[1] Past Surgical History[2] Current Outpatient Medications Medication Instructions Diazepam 10 MG tablet Take 1 x mouth 30-45 minutes prior to MRI. Okay to take 1 afterwards PRN for spasms/anxiety Meloxicam 15 MG tablet oxyCODONE-acetaminophen 5-325 MG per tablet pregabalin 75 MG capsule Allergies[3] Vitals: 12/09/24 1025 Pulse: 55 Temp: 97.5 F (36.4 C) SpO2: 97% BMI 27.05, 205 lb Musculoskeletal exam: Lumbar incision is well healed without erythema drainage fluctuance or mass. Neck is supple alert orient x3 nontoxic in appearance. Good strength noted to both upper extremities today on bench testing. Ambulates today with a antalgic gait her lying quite heavily on a wheeled walker. On bench testing today he has positive straight leg raise on the left negative on the right. Does have an element of groin pain noted today with internal and external rotation of the left hip itself. Pain-free full range of motion of the right hip noted. No calf tenderness swelling in the lowers. Did not attempt to assess his lumbar range of motion today. He did not wear his LSO today. 5/5 strength noted all major motor groups today on bench testing to both lower extremities. Does not have any tenderness noted over the PSIS bilaterally. Majority of his symptoms emanate from the left lateral gluteal region. No evidence of any piriformis symptoms on the left with provocative maneuvers. Assessment: - L3-4 paracentral left disc extrusion under recent unilateral left-sided fixated fusion with L4 radiculopathy -s/p index L4/5 decompression fixation fusion unilateral construct completed September 2023 for right lower extremity pain with subsequent re-exploration decompression L4-24 December 2023-[facility] with good relief of right lower extremity pain -s/p L3-4 decompression fixation fusion unilateral construct L3-5 completed 10/08/2024 with refractory left L4/5 radiculopathy - s/p left total hip arthroplasty outside hospital 2022, - Far lateral disc herniation left L1/2-asymptomatic - 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 I conference his case today with Dr. Taylor in clinic. She has reviewed all of his recent plain radiographs of the spine in addition to CT and MRI postoperatively. - She is recommended the patient pursue with a left L4 transforaminal HENRY for therapeutic purposes. - Patient will hold off on the left SI joint injection. If he were to get the SI joint injection we would prefer that he had at least 2 weeks after the epidural so that way we can determine the response to each individual injection. - Patient has requested to have the epidural completed here at [facility] for expeditious purposes. Order has been placed for left L4 transforaminal HENRY with Dr. Browning under fluoroscopic guidance 12/15. - We would like to follow back up with the patient via telehealth 2 weeks after the epidural to discuss the efficacy. - Patient encouraged to get back in his LSO. No lifting, pushing or pulling more than 5 lb. No twisting. No driving - Dr. Taylor he had mentioned that if his symptoms are refractory to this treatment then he may require revision surgery including L3-4 , re-exploration diskectomy with interbody fusion through a TLIF approach with the cage - All the patient's questions as well as 's were answered to satisfaction. He is amenable to this treatment plan. [employer] Voice Recognition System was used to compose patient's note. Attempts have been made to review dictation as it is transcribed, on occasion the spoken word may be misinterpreted by the technology, leading to omissions or inappropriate words or phrases. [1] No past medical history on file. [2] No past surgical history on file. [3] No Known Allergies documented in this encounter [facility] 11-16-2024 History of Present illness Narrative 63 y/o LHD Rickey Williamson is seen in re-evaluated Orthopedic spine Clinic. Patient last evaluated 09/12/[address] Taylor That time he has a history of degenerative spondylolisthesis L4/5 with concentric stenosis and right leg pain. He has been up had surgery at the [facility] L4-5 decompression unilateral fixation on the left. Initially had relief of his right lower extremity pain. Within a several weeks to a month he had recurrence of right leg pain which necessitating him going back to surgery for re-exploration decompression. Apparently that helped with his right leg pain. Then he had contralateral leg pain in the L4/5 distribution. This was earlier this year in the spring when he was out moving hay. Went back to his orthopedic spine surgeon at [facility] Dr. Bautista we took him back to surgery for bulging disc up above his fusion. He underwent extension of fusion with laminectomy decompression L3-4. Currently has a unilateral construct L3-5 on the left. Oswestry low back score today 62. Denies fever or chills no bowel or bladder changes no groin numbness. He is a nonsmoker. He is accompanied today by his . He is on Percocet 5/325 takes on average 1 twice a day. Also on Lyrica 75 mg twice daily which was implemented after his most recent surgery. 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 Typically he feels the best in the mornings. As he is up and active as the early afternoon evening approach his pain at times in the left leg 10/10. Emanates from the left buttock lateral anterior thigh crossing the knee into the arch and top of the foot in the L4/5 distribution. Denies any right leg symptoms. Sounds like he had a recent Medrol Dosepak which helps with the 1st day or 2. For the 1st couple of days after surgery back in September left leg symptoms were significantly improved. He went back to his spinal surgeon here recently told him he is unsure what is causing his pain. Set him up with a 2nd surgical opinion there locally. Patient and spouse wanted to return back to [facility] and get his care preferably from Dr. Taylor since they have essentially lost confidence in his local spinal surgeon I inquired about epidural injections. Sounds like there is a pain Dr. Granados up there locally who gave him 2 epidural injections. Both of them were just prior to his most recent surgery 10/08/2024. Sounds like the 1st injection helped 20% for 3 or 4 days 2nd injection did not help at all with the left leg Patient is wearing a back brace/LSO when she was Rx by his local spine surgeon. Past Medical History[1] Past Surgical History[2] Current Outpatient Medications Medication Instructions Meloxicam 15 MG tablet oxyCODONE-acetaminophen 5-325 MG per tablet pregabalin 75 MG capsule Allergies[3] History reviewed. No pertinent family history. Vitals: 11/16/24 1003 Pulse: 51 Temp: 97.9 F (36.6 C) SpO2: 98% BMI 26.52, 201 lb Musculoskeletal exam: Lumbar incision is well approximated/healed. Picture was obtained today utilizing [address] [employer] for EMR purposes. LSO in place ambulates today with a wheeled walker in the community for ambulatory aid. Able to toe and heel stand. Straight leg raise negative bilaterally. No calf tenderness swelling lowers. Lumbar range of motion was not assessed due to recent surgery. Upper extremity reflexes diminished negative finger escape sign negative Lhermitte's. Does have some myofascial diffuse neck pain. Overall sagittal coronal spinal alignment normal parameters. 5/5 strength noted all major motor groups bilateral upper and lower extremities today on bench testing. Negative Fabere's. Pain-free full range of motion of the hip joints. Radiographs: AP and lateral standing scoliosis radiographs were obtained interpreted independently. Unilateral instrumentation noted L3-4 and 5 on the left. Flexion-extension views failed to reveal any dynamic instability above or below the fusion. Spondylosis disc degeneration noted L2-3 and L5-S1. Incidentally noted left hip arthroplasty. Age-appropriate joint space narrowing noted about the sacrum and right hip. Patient denies any focal tenderness over the PSIS on the left today Assessment: -s/p index L4/5 decompression fixation fusion unilateral construct completed September 2023 for right lower extremity pain with subsequent re-exploration decompression L4-24 December 2023-[facility] with good relief of right lower extremity pain -s/p L3-4 decompression fixation fusion unilateral construct L3-5 completed 10/08/2024 with refractory left L4/5 radiculopathy - s/p left total hip arthroplasty outside hospital 2022 Recommendations: - I have discussed the above findings today with the patient. In light of him just having a fusion 5 weeks ago he has been encouraged to stop meloxicam/NSAID to optimize early bone graft incorporation. - Patient encouraged to have CT scan lumbar spine without contrast completed in addition to lumbar MRI with and without contrast ( METAL SUPPRESSION). We will be completed here in [facility], Pro scan imaging at patient request - Once these have been completed we will have him follow back up in clinic with Dr. Taylor to discuss results - In the interim patient will contact to prescribe her for his Lyrica to see if he can take it 75 mg every 8 hours or potentially even 150 mg q.12h as a membrane stabilizing agent. - Patient will continue to ice his back in the interim for local pain measures. We will avoid heat application. - In the event the patient were to have any progression of upper and/or lower neurologic symptoms such as weakness, bowel and/or bladder incontinence or groin numbness needs to go the emergency room JACKIE and contact our office in the interim -[facility] report reviewed. No red flags. Valium prescription provided be taken 30-45 minutes prior to MRI. Okay to take 1 afterwards p.r.n. spasms/anxiety. Patient's spouse will drive him to and from the scan - All their questions answered to satisfaction. They are amenable to this treatment plan. [employer] Voice Recognition System was used to compose patient's note. Attempts have been made to review dictation as it is transcribed, on occasion the spoken word may be misinterpreted by the technology, leading to omissions or inappropriate words or phrases. [1] No past medical history on file. [2] No past surgical history on file. [3] No Known Allergies documented in this encounter [facility] 05-06-2024 Radiology Diagnostic study note [facility] Imaging Services [address] [place] [address] [id number] Spine Lumbar WITH Contrast MR#: [id number] Acct: [id number] Name: NAYA WILLIAMSON Rep #: [id number] : 1960 M 63 From: Yosi Salas MD PCP: Dr. Pradeep Gillespie MD Status: REG Cyrus LUCIO Study:Spine Lumbar WITH Contrast Date of Exam : 05/06/24 Exam# [id number] Ordering Dr: Anjana Bautista MD PROCEDURE: SPINE LUMBAR WITH intrathecal CONTRAST REASON FOR EXAM: POST OP Chronic pain following laminectomy and fusion.. TECHNIQUE: Lumbar spine CT with contrast. CONTRAST: Isovue M 200 VOLUME: 10mL. Intrathecal administration. One or more dose reduction techniques were used (e.g., Automated exposure control, adjustment of the mA and/or kV according to patient size, use of iterative reconstruction technique). RADIATION DOSE SUMMARY: CTDlvol: 21.14 mGy DLP: 711.42 mGycm COMPARISON: Comparison is made with prior lumbar myelogram done earlier in the day. FINDINGS: Vertebrae: Multilevel spondylosis. Alignment: Minimal anterior listhesis of L4 on L5. L1-2: Moderate degree of disc space narrowing and disc degeneration. Spondylosis. Minimal central stenosis due to hypertrophy of the facet joints. L2-3: Mild degree of disc space narrowing. Facet joint osteoarthritis and hypertrophy. Mild bilateral neural foraminal stenosis and central canal stenosis due to hypertrophy of the ligamentum flava. L3-4: Mild degree of disc space narrowing. Facet joint osteoarthritis and hypertrophy with bilateral neural foraminal stenosis more prominent on the left side. There is evidence of left intrapedicular screwfixation. L4-5: Minimal anterior listhesis of L4 on L5. Status post laminectomy and intrapedicular screw fixation in the left facet joint. No evidence of spinal stenosis. L5-S1: Mild degree of disc space narrowing. No significant abnormality is seen. Sacrum: Unremarkable. CT/Spine Lumbar WITH Contrast IMPRESSION: Status post laminectomy and left intrapedicular screw fixation at the L3-L4 and L4-L5 levels. Minimal anterior listhesis of L4 on L5. Mild bilateral neural foraminal stenosis at multiple levels. Mild central canal stenosis at the L1-L2 level. Reading Location: [place] [address] CC: Dr. Pradeep Gillespie MD; Dr. Moncho Bautista MD; Dr. Villa Wells MD ~ Computer Publisher: Signed [facility] 05-06-2024 Radiology Diagnostic study note [facility] Imaging Services [address] [place] [id number] Lumbar Myelogram MR#: [id number] Acct: [id number] Name: NAYA WILLIAMSON Rep #: [id number] : 1960 63 From: Yosi Salas MD PCP: Dr. Pradeep Gillespie MD Status: SHANTA LUCIO Study:Lumbar Myelogram Date of Exam: Exam# [id number] Ordering Dr: Anjana Bautista MD PROCEDURE: LUMBAR MYELOGRAM 05/06/2024 REASON FOR EXAM: POST OP Persistent low back pain. TECHNIQUE: The procedure as well as the benefits and possible complications including infection, bleeding and headaches were explained to the patient. Informed consent was obtained. The patient was in the prone position. Following local anesthetic application, a lumbar puncture was performed at the L3-L4 level. Free flowing CSF was noted. Following this, 10 cc of Isovue M 200 was injected intrathecally. Imaging was provided. COMPARISON: None FINDINGS: The patient is status post laminectomy at the L4-L5 and L5-S1 level with fusion at the L4-L5 level on the left side utilizing intrapedicular screw fixation and bharathi fixation device. There is evidence of degenerative disc disease and narrowing at the L1-L2 and L2-L3 levels. No evidence of spinal stenosis on this examination. Minimal anterior extradural defect at the L3-L4 level most likely secondary to a central disc bulge. RAD/Lumbar Myelogram IMPRESSION: Successful lumbar puncture as described. The patient tolerated the procedure well with no immediate complication. A CT scan will follow. Reading Location: [place] [address] CC: Dr. Pradeep Gillespie MD; Dr. Moncho Bautista MD; Dr. Villa Wells MD ~ Computer Publisher: Signed [facility] 09-12-2023 History of Present illness Narrative Orthopaedic Surgery Attending (Spine) I have personally seen and examined Rickey Williamson and reviewed the relevant images in conjunction with the JAGDEEP or resident/fellow. I independently interviewed, examined and formulated the medical decision making along with him or her and provided a substantive portion of the care for this patient. I personally performed all aspects of the medical decision making for this encounter. I agree with the clinical history, physical examination, and management plan detailed in the above note. I have personally discussed the diagnosis and management with the patient and family. Cindy Taylor MD Referring Physician: Pradeep Gillespie MD Chief Complaint / Reason for Visit : Back and right leg pain Occupation: Construction HPI: Patient is a 62 y.o. LHD male who presents for assessment of low back and right leg pain. He states that this began 4 months ago without inciting event. He does state that he has had back injuries in the past that usually resolved, however this time his pain seems to be persistent. He complains of Right buttock, right lateral hip and anterior thigh and anterior fay and dorsal foot pain and sometimes the entire leg with nondermatomal n/t 50%/50% He states his pain is worse when he rises from a seated position and with his 1st few steps. He also states that his pain improves with rest, walking, sitting/laying down with his legs propped. He has not really tried any formal treatments to date. He has tried meloxicam in the past. He takes lyrica intermittently. He denies bowel or bladder issues, perineal paresthesias, dexterity issues, or balance issues. Has been see by Dr. Lea Hernandez, spine surgeon. Recommended a lumbar facet injection. H/o bilateral RC surgery and left LETI. Chart notes and referral notes reviewed for history. Care everywhere notes reviewed for history. Review of Systems: Chart review of systems was reviewed prior to the interview. A subset of that information is presented below. Constitutional: - Unexplained Weight Loss - No - Fever/chills - No Chest: - Chest Pain -No - Shortness of Breath -No - Abdominal Pain- No Musculoskeletal: -spine or extremity pain yes GI/: - Bowel incontinence - No - Bladder incontinence No Past Medical History: No past medical history on file. Past Surgical History: No past surgical history on file. Social History: Smoking No, ETOH no Social History Occupational History Not on file Tobacco Use Smoking status: Not on file Smokeless tobacco: Not on file Substance and Sexual Activity Alcohol use: Not on file Drug use: Not on file Sexual activity: Not on file Family History: No family history on file. Medications: No outpatient medications prior to visit. No facility-administered medications prior to visit. Allergies: has No Known Allergies. Physical Exam: General: Vitals: 09/12/23 1416 Weight: 90.9 kg (200 lb 8 oz) Height: 1.854 m (6' 1) No acute distress Psych: A+Ox3, Affect is appropriate Gait: Gait: antalgic gait pattern Heel and toe walking is intact Tandem gait- normal Rhomberg sign: normal Skin: Lesions on Skin - No Spine: No skin lesions, ulcers noted. No visual asymmetry or rotation in cervicothoracolumbosacral spine noted. Tenderness to palpation in any region- lumbar spine. Patient s spine is well aligned with no evidence of masses or muscle spasms. Muscle tone and bulk are normal. Range of motion of the cervical spine is normal in flexion, extension, lateral bending and rotation . Range of motion of the lumbar spine is limited with pain in flexion, extension, lateral bending, and rotation with pain. Dysraphism (neural tube defect) - No, Prior surgical scars no Neuro: MOTOR: Delt C5 Bic C5,6 WE C6 Triceps C7 Secretary To The Vice President C8 Intrinsics T1 Reference Right 5 5 5 5 5 5 5=Normal Left 5 5 5 5 5 5 3=against gravity SENSORY C5 C6 C7 C8 T1 Reference Right 2 2 2 2 2 2=Normal Left 2 2 2 2 2 1=Presend but decreased MOTOR: IP L1 Quad L3,4 TA L4 EHL L5 GS S1 Reference Right 5 5 5 5 5 5=Normal Left 5 5 5 5 5 3=against gravity SENSORY L2 L3 L4 L5 S1 Reference Right 2 2 2 2 2 2=Normal Left 2 2 2 2 2 1=Presend but decreased Reflexes Biceps BR Triceps Patella Achilles Reference Right 2 2 2 2 2 3=Increased, 0=Absent Left 2 2 2 2 2 1=Decreased decreased Spinal Cord Eval Romo Clonus Balance walking Straight Leg Raise Test Reference Right Neg Absent Normal negative Normal=Absent Stuart, Clonus Left Neg Absent Normal Normal Imaging Independent review Xrays lumbar spine 09/12/2023 with diffuse spondylosis with mild L4-5 anterolisthesis MRI lumbar spine 07/24/2023 VARUN reveals diffuse spondylosis with L4-5 anterolisthesis with spinal stenosis and spondylolisthesis, right L4-5 moderate foraminal stenosis Clinical impression: Patient is a 62 y.o. male who presents with- 1. Low back 2. Right leg pain Plan: The natural history and course of the symptomatology of lumbar radiculopathy was discussed in detail with the patient. Diagnostics were reviewed with the patient and the results were discussed .I answered all questions regarding the mode of onset, pathophysiology, symptoms, imaging findings, treatment options (both non-operative and operative) regarding his diagnosis. - his symptoms are not classic for lumbar stenosis. Recommend Recommend a trial of nonoperative management including referral for physical therapy and right L4 TFESI. Provided patient with a prescription for Lyrica to be taken scheduled. Plan of care discussed. All questions answered. The patient and verbalized understanding of the disease process and agreed to the treatment plan formulated for this visit. Follow-up: - 6 weeks or sooner if issues arise Ramon Carmona MD Orthopaedic Spine Fellow Parts/entire of this note was dictated via M*Modal using a microphone/Phone and there may be some remaining typing/spelling/grammatical errors, in spite of my extensive editing. Please feel free to reach me back for any clarifications. documented in this encounter [facility] 10-27-2022 Note HNO ID: [id number] Author: Rayray Hugo PA-C Service: ? Author Type: Physician Ladle Handler Type: Progress Notes Filed: 10/27/2022 9:00 AM Note Text: This note was created using [employer]. Subjective Naya Williamson is a 61 year old male. HPI Presents with sore throat, cough, question if over the past 5 days. No fever. No chest pain or shortness of breath. No vomiting. No diarrhea. Denies sick contacts. Has had some body aches. No chills. He has tried cough drops [id number]. He states the cough seems to worsen at night. He does have some postnasal drip. Review of Systems Constitutional: Negative for fever. HENT: Positive for congestion, postnasal drip and sore throat. Negative for ear pain, sinus pressure and sinus pain. Respiratory: Positive for cough. Negative for chest tightness, shortness of breath and wheezing. Cardiovascular: Negative for chest pain. Gastrointestinal: Negative. Genitourinary: Negative. Musculoskeletal: Positive for myalgias. All other systems reviewed and are negative. PAST MEDICAL HISTORY Diagnosis Date Cancer (HCC) skin cancer on face. Diarrhea Hemorrhage of gastrointestinal tract, unspecified Current Outpatient Medications Medication Sig Dispense Refill IBUPROFEN ORAL Take by mouth as needed. Patient does not know dose MULTIVITAMIN TABLET PO Take one(1) tablet daily. 0 benzonatate (TESSALON PERLES) 100 mg capsule Take 2 capsules by mouth three times daily as needed for cough. 30 capsule 0 gabapentin (NEURONTIN) 300 mg capsule Take 1 capsule by mouth daily at bedtime. For 5 days then one twice a day as tolerated. (Patient not taking: Reported on 08/18/2018 ) 60 capsule 1 No current facility-administered medications for this visit. PAST SURGICAL HISTORY Procedure Laterality Date COLONOSCOPY FLX DX W/COLLJ SPEC WHEN PFRMD 07/08/2009 Colonoscopy PAST SURGICAL HISTORY OF 2001 skin cancer removed from face PAST SURGICAL HISTORY OF 1998 Left ACL repaired PAST SURGICAL HISTORY OF [id number] Tendons tear bilat elbows. PAST SURGICAL HISTORY OF 01/2009 right rotator cuff PAST SURGICAL HISTORY OF Left arm surgery, open reduction. PAST SURGICAL HISTORY OF Approx. 2010 Left rotator cuff repair RHINP PRIM LATANDALAR CRTLGSAND/ELVTN NASAL TI 1988 Rhinoplasty RPR 1ST INGUN HRNA FULL TERM INFT <6 MO RDC mid FAMILY HISTORY Problem Relation Age of Onset Ischemic Heart Disease Father cad 57 Ischemic Heart Disease Paternal Grandfather [place] 80 other (brain cancer) Maternal Grandfather other (skin ca) Paternal Grandmother GI Mother polyps Cancer Mother Social History Tobacco Use Smoking status: Never Smokeless tobacco: Never Vaping Use Vaping Use: Never used Substance Use Topics Alcohol use: Yes Comment: rarely has a beer Drug use: No Objective BP 130/74 Pulse 60 Temp 36.4 ?C (97.6 ?F) Resp 21 Wt 91.3 kg (201 lb 3.2 oz) SpO2 100% BMI 26.55 kg/m? Physical Exam Vitals reviewed. Constitutional: Appearance: Normal appearance. HENT: Head: Normocephalic and atraumatic. Right Ear: Tympanic membrane, ear canal and external ear normal. Left Ear: Tympanic membrane, ear canal and external ear normal. Nose: Congestion present. Mouth/Throat: Mouth: Mucous membranes are moist. Pharynx: Oropharynx is clear. Cardiovascular: Rate and Rhythm: Normal rate and regular rhythm. Heart sounds: Normal heart sounds. Pulmonary: Effort: Pulmonary effort is normal. Breath sounds: Normal breath sounds. Musculoskeletal: Cervical back: Neck supple. Lymphadenopathy: Cervical: No cervical adenopathy. Skin: General: Skin is warm and dry. Neurological: Mental Status: He is alert. Assessment and Plan ASSESSMENT/PLAN: 1. URI, acute - ICD9: 465.9, ICD10: J06.9 -Tessalon for cough prescribed. Discussed using Flonase and Zyrtec [id number] for postnasal drip and congestion. Follow-up if not improving or if developing fever or worsening. Covid test declined. - Discussed viral etiology and rationale for treatment. - Symptomatic treatment with prn analgesia - Supportive care with fluids and rest - Follow up in 3-5 days if symptoms persist or sooner if worsening of symptoms Rayray Hugo PA-C [facility] 10-27-2022 History of Present illness Narrative This note was created using [employer]. Subjective Naya Williamson is a 61 year old male. HPI Presents with sore throat, cough, question if over the past 5 days. No fever. No chest pain or shortness of breath. No vomiting. No diarrhea. Denies sick contacts. Has had some body aches. No chills. He has tried cough drops [id number]. He states the cough seems to worsen at night. He does have some postnasal drip. Review of Systems Constitutional: Negative for fever. HENT: Positive for congestion, postnasal drip and sore throat. Negative for ear pain, sinus pressure and sinus pain. Respiratory: Positive for cough. Negative for chest tightness, shortness of breath and wheezing. Cardiovascular: Negative for chest pain. Gastrointestinal: Negative. Genitourinary: Negative. Musculoskeletal: Positive for myalgias. All other systems reviewed and are negative. PAST MEDICAL HISTORY Diagnosis Date Cancer (HCC) skin cancer on face. Diarrhea Hemorrhage of gastrointestinal tract, unspecified Current Outpatient Medications Medication Sig Dispense Refill IBUPROFEN ORAL Take by mouth as needed. Patient does not know dose MULTIVITAMIN TABLET PO Take one(1) tablet daily. 0 benzonatate (TESSALON PERLES) 100 mg capsule Take 2 capsules by mouth three times daily as needed for cough. 30 capsule 0 gabapentin (NEURONTIN) 300 mg capsule Take 1 capsule by mouth daily at bedtime. For 5 days then one twice a day as tolerated. (Patient not taking: Reported on 08/18/2018 ) 60 capsule 1 No current facility-administered medications for this visit. PAST SURGICAL HISTORY Procedure Laterality Date COLONOSCOPY FLX DX W/COLLJ SPEC WHEN PFRMD 07/08/2009 Colonoscopy PAST SURGICAL HISTORY OF 2001 skin cancer removed from face PAST SURGICAL HISTORY OF 1998 Left ACL repaired PAST SURGICAL HISTORY OF [id number] Tendons tear bilat elbows. PAST SURGICAL HISTORY OF 01/2009 right rotator cuff PAST SURGICAL HISTORY OF Left arm surgery, open reduction. PAST SURGICAL HISTORY OF Approx. 2010 Left rotator cuff repair RHINP PRIM LAT&ALAR CRTLGS&/ELVTN NASAL TI 1988 Rhinoplasty RPR 1ST INGUN HRNA FULL TERM INFT <6 MO RDC mid FAMILY HISTORY Problem Relation Age of Onset Ischemic Heart Disease Father cad 57 Ischemic Heart Disease Paternal Grandfather [place] 80 other (brain cancer) Maternal Grandfather other (skin ca) Paternal Grandmother GI Mother polyps Cancer Mother Social History Tobacco Use Smoking status: Never Smokeless tobacco: Never Vaping Use Vaping Use: Never used Substance Use Topics Alcohol use: Yes Comment: rarely has a beer Drug use: No Objective BP 130/74 Pulse 60 Temp 36.4 C (97.6 F) Resp 21 Wt 91.3 kg (201 lb 3.2 oz) SpO2 100% BMI 26.55 kg/m Physical Exam Vitals reviewed. Constitutional: Appearance: Normal appearance. HENT: Head: Normocephalic and atraumatic. Right Ear: Tympanic membrane, ear canal and external ear normal. Left Ear: Tympanic membrane, ear canal and external ear normal. Nose: Congestion present. Mouth/Throat: Mouth: Mucous membranes are moist. Pharynx: Oropharynx is clear. Cardiovascular: Rate and Rhythm: Normal rate and regular rhythm. Heart sounds: Normal heart sounds. Pulmonary: Effort: Pulmonary effort is normal. Breath sounds: Normal breath sounds. Musculoskeletal: Cervical back: Neck supple. Lymphadenopathy: Cervical: No cervical adenopathy. Skin: General: Skin is warm and dry. Neurological: Mental Status: He is alert. Assessment and Plan ASSESSMENT/PLAN: 1. URI, acute - ICD9: 465.9, ICD10: J06.9 -Tessalon for cough prescribed. Discussed using Flonase and Zyrtec [id number] for postnasal drip and congestion. Follow-up if not improving or if developing fever or worsening. Covid test declined. - Discussed viral etiology and rationale for treatment. - Symptomatic treatment with prn analgesia - Supportive care with fluids and rest - Follow up in 3-5 days if symptoms persist or sooner if worsening of symptoms Rayray Hugo PA-C documented in this encounter [facility] 10-27-2022 Instructions Rayray Hugo PA-C - 10/27/2022 8:48 AM EDT Flonase nasal spray over the counter Zyrtec over the counter If you spike a fever over 100.4 or not better on day 10 be seen again. documented in this encounter [facility] Evaluation + Plan note No data available for this section [facility] Evaluation note Diagnosis URI, acute- Primary Acute upper respiratory infections of unspecified site [facility] Lumbar pain Lumbago [facility] Diagnosis Lumbar pain- Primary Lumbago Lumbar radiculopathy Thoracic or lumbosacral neuritis or radiculitis, unspecified Lumbar pain Lumbago documented in this encounter [facility] assessment information available [facility] Work Phone: Evaluation note* Diagnosis Spondylolisthesis, grade 1- Primary Acquired spondylolisthesis Lumbar spondylosis Lumbosacral spondylosis without myelopathy Thoracic spondylosis Thoracic spondylosis without myelopathy Lumbar radiculopathy Thoracic or lumbosacral neuritis or radiculitis, unspecified S/P lumbar fusion Arthrodesis status Spondylolisthesis, grade 1 Acquired spondylolisthesis Spondylolisthesis, grade 1 Acquired spondylolisthesis Lumbar spondylosis Lumbosacral spondylosis without myelopathy Thoracic spondylosis Thoracic spondylosis without myelopathy documented in this encounter [facility] Diagnosis Spondylolisthesis, grade 1 Acquired spondylolisthesis documented in this encounter [facility] Diagnosis Spondylolisthesis, grade 1 Acquired spondylolisthesis Lumbar spondylosis Lumbosacral spondylosis without myelopathy Thoracic spondylosis Thoracic spondylosis without myelopathy documented in this encounter [facility] Diagnosis S/P lumbar fusion- Primary Arthrodesis status Lumbar radiculopathy Thoracic or lumbosacral neuritis or radiculitis, unspecified Spondylolisthesis, grade 1 Acquired spondylolisthesis documented in this encounter [facility] Diagnosis Spondylolisthesis, grade 1- Primary Acquired spondylolisthesis Lumbar radiculopathy Thoracic or lumbosacral neuritis or radiculitis, unspecified documented in this encounter [facility] Diagnosis Spondylolisthesis, grade 1 Acquired spondylolisthesis [facility] No data available for this section [facility] Instructions* Name Dates Details Patient Instructions Indication:Physical exam for work or camp (Renamed from Encounter for school health examination) Start:06-Jul-2020 Instruction Type:Provider Instructions for Treatment How to Access Health Informa tion Online using Patient Portal and [employer] Indication:Physical exam for work or camp (Renamed from Encounter for school health examination) Start:06-Jul-2020 Instruction Type:Patient Education Patient Instructions Indication:Low back pain Start:26-May-2020 Instruction Type:Provider Instructions for Treatment How to Access Health Informa tion Online using Patient Portal and [employer] Indication:Low back pain Start:26-May-2020 Instruction Type:Patient Education Patient Instructions Indication:BMI 27.0-27.9,adult Start:25-Feb-2020 Instruction Type:Provider Instructions for Treatment How to Access Health Informa tion Online using Patient Portal and [employer] Indication:BMI 27.0-27.9,adult Start:25-Feb-2020 Instruction Type:Patient Education How to access health informa tion online Indication:Encounter for well adult exam with abnormal findings (Renamed from Encounter for general adult medical examination with abnormal findings) Start:19-Nov-2019 Instruction Type:Patient Education How to access health informa tion online - Detail Indication:Encounter for well adult exam with abnormal findings (Renamed from Encounter for general adult medical examination with abnormal findings) Start:19-Nov-2019 Instruction Type:Patient Education Patient Instructions Indication:Encounter for well adult exam with abnormal findings (Renamed from Encounter for general adult medical examination with abnormal findings) Start:19-Nov-2019 Instruction Type:Provider Instructions for Treatment How to access health informa tion online Indication:Encounter for hepatitis C virus screening test for high risk patient Start:10-Sep-2019 Instruction Type:Patient Education How to access health informa tion online - Detail Indication:Encounter for hepatitis C virus screening test for high risk patient Start:10-Sep-2019 Instruction Type:Patient Education Patient Instructions Indication:Encounter for hepatitis C virus screening test for high risk patient Start:10-Sep-2019 Instruction Type:Provider Instructions for Treatment [facility] Work Phone: Instructions* Name Dates Details Patient Instructions Indication:Physical exam for work or camp (Renamed from Encounter for school health examination) Start:06-Jul-2020 Instruction Type:Provider Instructions for Treatment How to Access Health Informa tion Online using Patient Portal and [employer] Indication:Physical exam for work or camp (Renamed from Encounter for school health examination) Start:06-Jul-2020 Instruction Type:Patient Education Patient Instructions Indication:Low back pain Start:26-May-2020 Instruction Type:Provider Instructions for Treatment How to Access Health Informa tion Online using Patient Portal and [employer] Indication:Low back pain Start:26-May-2020 Instruction Type:Patient Education Patient Instructions Indication:BMI 27.0-27.9,adult Start:25-Feb-2020 Instruction Type:Provider Instructions for Treatment How to Access Health Informa tion Online using Patient Portal and [employer] Indication:BMI 27.0-27.9,adult Start:25-Feb-2020 Instruction Type:Patient Education How to access health informa tion online Indication:Encounter for well adult exam with abnormal findings (Renamed from Encounter for general adult medical examination with abnormal findings) Start:19-Nov-2019 Instruction Type:Patient Education How to access health informa tion online - Detail Indication:Encounter for well adult exam with abnormal findings (Renamed from Encounter for general adult medical examination with abnormal findings) Start:19-Nov-2019 Instruction Type:Patient Education Patient Instructions Indication:Encounter for well adult exam with abnormal findings (Renamed from Encounter for general adult medical examination with abnormal findings) Start:19-Nov-2019 Instruction Type:Provider Instructions for Treatment How to access health informa tion online Indication:Encounter for hepatitis C virus screening test for high risk patient Start:10-Sep-2019 Instruction Type:Patient Education How to access health informa tion online - Detail Indication:Encounter for hepatitis C virus screening test for high risk patient Start:10-Sep-2019 Instruction Type:Patient Education Patient Instructions Indication:Encounter for hepatitis C virus screening test for high risk patient Start:10-Sep-2019 Instruction Type:Provider Instructions for Treatment [facility] Work Phone: Instructions* Name Dates Details Patient Instructions Indication:Encounter for well adult exam with abnormal findings (Renamed from Encounter for general adult medical examination with abnormal findings) Start:01-Dec-2020 Instruction Type:Provider Instructions for Treatment How to Access Health Informa tion Online using Patient Portal and [employer] Indication:Encounter for well adult exam with abnormal findings (Renamed from Encounter for general adult medical examination with abnormal findings) Start:01-Dec-2020 Instruction Type:Patient Education Patient Instructions Indication:Physical exam for work or camp (Renamed from Encounter for school health examination) Start:06-Jul-2020 Instruction Type:Provider Instructions for Treatment How to Access Health Informa tion Online using Patient Portal and [employer] Indication:Physical exam for work or camp (Renamed from Encounter for school health examination) Start:06-Jul-2020 Instruction Type:Patient Education Patient Instructions Indication:Low back pain Start:26-May-2020 Instruction Type:Provider Instructions for Treatment How to Access Health Informa tion Online using Patient Portal and [employer] Indication:Low back pain Start:26-May-2020 Instruction Type:Patient Education Patient Instructions Indication:BMI 27.0-27.9,adult Start:25-Feb-2020 Instruction Type:Provider Instructions for Treatment How to Access Health Informa tion Online using Patient Portal and [employer] Indication:BMI 27.0-27.9,adult Start:25-Feb-2020 Instruction Type:Patient Education How to access health informa tion online Indication:Encounter for well adult exam with abnormal findings (Renamed from Encounter for general adult medical examination with abnormal findings) Start:19-Nov-2019 Instruction Type:Patient Education How to access health informa tion online - Detail Indication:Encounter for well adult exam with abnormal findings (Renamed from Encounter for general adult medical examination with abnormal findings) Start:19-Nov-2019 Instruction Type:Patient Education Patient Instructions Indication:Encounter for well adult exam with abnormal findings (Renamed from Encounter for general adult medical examination with abnormal findings) Start:19-Nov-2019 Instruction Type:Provider Instructions for Treatment How to access health informa tion online Indication:Encounter for hepatitis C virus screening test for high risk patient Start:10-Sep-2019 Instruction Type:Patient Education How to access health informa tion online - Detail Indication:Encounter for hepatitis C virus screening test for high risk patient Start:10-Sep-2019 Instruction Type:Patient Education Patient Instructions Indication:Encounter for hepatitis C virus screening test for high risk patient Start:10-Sep-2019 Instruction Type:Provider Instructions for Treatment [facility] Work Phone: Instructions* Name Dates Details Patient Instructions Indication:Encounter for well adult exam with abnormal findings (Renamed from Encounter for general adult medical examination with abnormal findings) Start:01-Dec-2020 Instruction Type:Provider Instructions for Treatment How to Access Health Informa tion Online using Patient Portal and [employer] Indication:Encounter for well adult exam with abnormal findings (Renamed from Encounter for general adult medical examination with abnormal findings) Start:01-Dec-2020 Instruction Type:Patient Education Patient Instructions Indication:Physical exam for work or camp (Renamed from Encounter for school health examination) Start:06-Jul-2020 Instruction Type:Provider Instructions for Treatment How to Access Health Informa tion Online using Patient Portal and [employer] Indication:Physical exam for work or camp (Renamed from Encounter for school health examination) Start:06-Jul-2020 Instruction Type:Patient Education Patient Instructions Indication:Low back pain Start:26-May-2020 Instruction Type:Provider Instructions for Treatment How to Access Health Informa tion Online using Patient Portal and [employer] Indication:Low back pain Start:26-May-2020 Instruction Type:Patient Education Patient Instructions Indication:BMI 27.0-27.9,adult Start:25-Feb-2020 Instruction Type:Provider Instructions for Treatment How to Access Health Informa tion Online using Patient Portal and [employer] Indication:BMI 27.0-27.9,adult Start:25-Feb-2020 Instruction Type:Patient Education How to access health informa tion online Indication:Encounter for well adult exam with abnormal findings (Renamed from Encounter for general adult medical examination with abnormal findings) Start:19-Nov-2019 Instruction Type:Patient Education How to access health informa tion online - Detail Indication:Encounter for well adult exam with abnormal findings (Renamed from Encounter for general adult medical examination with abnormal findings) Start:19-Nov-2019 Instruction Type:Patient Education Patient Instructions Indication:Encounter for well adult exam with abnormal findings (Renamed from Encounter for general adult medical examination with abnormal findings) Start:19-Nov-2019 Instruction Type:Provider Instructions for Treatment How to access health informa tion online Indication:Encounter for hepatitis C virus screening test for high risk patient Start:10-Sep-2019 Instruction Type:Patient Education How to access health informa tion online - Detail Indication:Encounter for hepatitis C virus screening test for high risk patient Start:10-Sep-2019 Instruction Type:Patient Education Patient Instructions Indication:Encounter for hepatitis C virus screening test for high risk patient Start:10-Sep-2019 Instruction Type:Provider Instructions for Treatment [facility] Work Phone: Instructions* Name Dates Details Patient Instructions Indication:Encounter for well adult exam with abnormal findings (Renamed from Encounter for general adult medical examination with abnormal findings) Start:01-Dec-2020 Instruction Type:Provider Instructions for Treatment How to Access Health Informa tion Online using Patient Portal and [employer] Indication:Encounter for well adult exam with abnormal findings (Renamed from Encounter for general adult medical examination with abnormal findings) Start:01-Dec-2020 Instruction Type:Patient Education Patient Instructions Indication:Physical exam for work or camp (Renamed from Encounter for school health examination) Start:06-Jul-2020 Instruction Type:Provider Instructions for Treatment How to Access Health Informa tion Online using Patient Portal and [employer] Indication:Physical exam for work or camp (Renamed from Encounter for school health examination) Start:06-Jul-2020 Instruction Type:Patient Education Patient Instructions Indication:Low back pain Start:26-May-2020 Instruction Type:Provider Instructions for Treatment How to Access Health Informa tion Online using Patient Portal and [employer] Indication:Low back pain Start:26-May-2020 Instruction Type:Patient Education Patient Instructions Indication:BMI 27.0-27.9,adult Start:25-Feb-2020 Instruction Type:Provider Instructions for Treatment How to Access Health Informa tion Online using Patient Portal and [employer] Indication:BMI 27.0-27.9,adult Start:25-Feb-2020 Instruction Type:Patient Education How to access health informa tion online Indication:Encounter for well adult exam with abnormal findings (Renamed from Encounter for general adult medical examination with abnormal findings) Start:19-Nov-2019 Instruction Type:Patient Education How to access health informa tion online - Detail Indication:Encounter for well adult exam with abnormal findings (Renamed from Encounter for general adult medical examination with abnormal findings) Start:19-Nov-2019 Instruction Type:Patient Education Patient Instructions Indication:Encounter for well adult exam with abnormal findings (Renamed from Encounter for general adult medical examination with abnormal findings) Start:19-Nov-2019 Instruction Type:Provider Instructions for Treatment How to access health informa tion online Indication:Encounter for hepatitis C virus screening test for high risk patient Start:10-Sep-2019 Instruction Type:Patient Education How to access health informa tion online - Detail Indication:Encounter for hepatitis C virus screening test for high risk patient Start:10-Sep-2019 Instruction Type:Patient Education Patient Instructions Indication:Encounter for hepatitis C virus screening test for high risk patient Start:10-Sep-2019 Instruction Type:Provider Instructions for Treatment [facility]; [facility] Work Phone: instructions* Name Dates Details How to access health informa tion online Indication:Encounter for hepatitis C virus screening test for high risk patient Start:10-Sep-2019 Instruction Type:Patient Education How to access health informa tion online - Detail Indication:Encounter for hepatitis C virus screening test for high risk patient Start:10-Sep-2019 Instruction Type:Patient Education Patient Instructions Indication:Encounter for hepatitis C virus screening test for high risk patient Start:10-Sep-2019 Instruction Type:Provider Instructions for Treatment [facility] Work Phone: instructions* Name Dates Details How to access health informa tion online Indication:Encounter for hepatitis C virus screening test for high risk patient Start:10-Sep-2019 Instruction Type:Patient Education How to access health informa tion online - Detail Indication:Encounter for hepatitis C virus screening test for high risk patient Start:10-Sep-2019 Instruction Type:Patient Education Patient Instructions Indication:Encounter for hepatitis C virus screening test for high risk patient Start:10-Sep-2019 Instruction Type:Provider Instructions for Treatment [facility] Work Phone: instructions* Name Dates Details Patient Instructions Indication:Encounter for well adult exam with abnormal findings (Renamed from Encounter for general adult medical examination with abnormal findings) Start:01-Dec-2020 Instruction Type:Provider Instructions for Treatment How to Access Health Informa tion Online using Patient Portal and [employer] Indication:Encounter for well adult exam with abnormal findings (Renamed from Encounter for general adult medical examination with abnormal findings) Start:01-Dec-2020 Instruction Type:Patient Education Patient Instructions Indication:Physical exam for work or camp (Renamed from Encounter for school health examination) Start:06-Jul-2020 Instruction Type:Provider Instructions for Treatment How to Access Health Informa tion Online using Patient Portal and [employer] Indication:Physical exam for work or camp (Renamed from Encounter for school health examination) Start:06-Jul-2020 Instruction Type:Patient Education Patient Instructions Indication:Low back pain Start:26-May-2020 Instruction Type:Provider Instructions for Treatment How to Access Health Informa tion Online using Patient Portal and [employer] Indication:Low back pain Start:26-May-2020 Instruction Type:Patient Education Patient Instructions Indication:BMI 27.0-27.9,adult Start:25-Feb-2020 Instruction Type:Provider Instructions for Treatment How to Access Health Informa tion Online using Patient Portal and [employer] Indication:BMI 27.0-27.9,adult Start:25-Feb-2020 Instruction Type:Patient Education How to access health informa tion online Indication:Encounter for well adult exam with abnormal findings (Renamed from Encounter for general adult medical examination with abnormal findings) Start:19-Nov-2019 Instruction Type:Patient Education How to access health informa tion online - Detail Indication:Encounter for well adult exam with abnormal findings (Renamed from Encounter for general adult medical examination with abnormal findings) Start:19-Nov-2019 Instruction Type:Patient Education Patient Instructions Indication:Encounter for well adult exam with abnormal findings (Renamed from Encounter for general adult medical examination with abnormal findings) Start:19-Nov-2019 Instruction Type:Provider Instructions for Treatment How to access health informa tion online Indication:Encounter for hepatitis C virus screening test for high risk patient Start:10-Sep-2019 Instruction Type:Patient Education How to access health informa tion online - Detail Indication:Encounter for hepatitis C virus screening test for high risk patient Start:10-Sep-2019 Instruction Type:Patient Education Patient Instructions Indication:Encounter for hepatitis C virus screening test for high risk patient Start:10-Sep-2019 Instruction Type:Provider Instructions for Treatment [facility]; [facility] Work Phone: Instructions* Name Dates Details Patient Instructions Indication:Non-smoker Start:25-Jan-2022 Instruction Type:Provider Instructions for Treatment How to Access Health Informa tion Online using Patient Portal and [employer] Indication:Non-smoker Start:25-Jan-2022 Instruction Type:Patient Education Patient Instructions Indication:Encounter for well adult exam with abnormal findings (Renamed from Encounter for general adult medical examination with abnormal findings) Start:01-Dec-2020 Instruction Type:Provider Instructions for Treatment How to Access Health Informa tion Online using Patient Portal and [employer] Indication:Encounter for well adult exam with abnormal findings (Renamed from Encounter for general adult medical examination with abnormal findings) Start:01-Dec-2020 Instruction Type:Patient Education Patient Instructions Indication:Physical exam for work or camp (Renamed from Encounter for school health examination) Start:06-Jul-2020 Instruction Type:Provider Instructions for Treatment How to Access Health Informa tion Online using Patient Portal and [employer] Indication:Physical exam for work or camp (Renamed from Encounter for school health examination) Start:06-Jul-2020 Instruction Type:Patient Education Patient Instructions Indication:Low back pain Start:26-May-2020 Instruction Type:Provider Instructions for Treatment How to Access Health Informa tion Online using Patient Portal and [employer] Indication:Low back pain Start:26-May-2020 Instruction Type:Patient Education Patient Instructions Indication:BMI 27.0-27.9,adult Start:25-Feb-2020 Instruction Type:Provider Instructions for Treatment How to Access Health Informa tion Online using Patient Portal and [employer] Indication:BMI 27.0-27.9,adult Start:25-Feb-2020 Instruction Type:Patient Education How to access health informa tion online Indication:Encounter for well adult exam with abnormal findings (Renamed from Encounter for general adult medical examination with abnormal findings) Start:19-Nov-2019 Instruction Type:Patient Education How to access health informa tion online - Detail Indication:Encounter for well adult exam with abnormal findings (Renamed from Encounter for general adult medical examination with abnormal findings) Start:19-Nov-2019 Instruction Type:Patient Education Patient Instructions Indication:Encounter for well adult exam with abnormal findings (Renamed from Encounter for general adult medical examination with abnormal findings) Start:19-Nov-2019 Instruction Type:Provider Instructions for Treatment How to access health informa tion online Indication:Encounter for hepatitis C virus screening test for high risk patient Start:10-Sep-2019 Instruction Type:Patient Education How to access health informa tion online - Detail Indication:Encounter for hepatitis C virus screening test for high risk patient Start:10-Sep-2019 Instruction Type:Patient Education Patient Instructions Indication:Encounter for hepatitis C virus screening test for high risk patient Start:10-Sep-2019 Instruction Type:Provider Instructions for Treatment [facility]; [facility] Work Phone: Instructions* Name Dates Details Patient Instructions Indication:BMI 25.0-25.9,adult Start:13-Feb-2022 Instruction Type:Provider Instructions for Treatment How to Access Health Informa tion Online using Patient Portal and [employer] Indication:BMI 25.0-25.9,adult Start:13-Feb-2022 Instruction Type:Patient Education Patient Instructions Indication:Non-smoker Start:25-Jan-2022 Instruction Type:Provider Instructions for Treatment How to Access Health Informa tion Online using Patient Portal and [employer] Indication:Non-smoker Start:25-Jan-2022 Instruction Type:Patient Education Patient Instructions Indication:Encounter for well adult exam with abnormal findings (Renamed from Encounter for general adult medical examination with abnormal findings) Start:01-Dec-2020 Instruction Type:Provider Instructions for Treatment How to Access Health Informa tion Online using Patient Portal and [employer] Indication:Encounter for well adult exam with abnormal findings (Renamed from Encounter for general adult medical examination with abnormal findings) Start:01-Dec-2020 Instruction Type:Patient Education Patient Instructions Indication:Physical exam for work or camp (Renamed from Encounter for school health examination) Start:06-Jul-2020 Instruction Type:Provider Instructions for Treatment How to Access Health Informa tion Online using Patient Portal and [employer] Indication:Physical exam for work or camp (Renamed from Encounter for school health examination) Start:06-Jul-2020 Instruction Type:Patient Education Patient Instructions Indication:Low back pain Start:26-May-2020 Instruction Type:Provider Instructions for Treatment How to Access Health Informa tion Online using Patient Portal and [employer] Indication:Low back pain Start:26-May-2020 Instruction Type:Patient Education Patient Instructions Indication:BMI 27.0-27.9,adult Start:25-Feb-2020 Instruction Type:Provider Instructions for Treatment How to Access Health Informa tion Online using Patient Portal and [employer] Indication:BMI 27.0-27.9,adult Start:25-Feb-2020 Instruction Type:Patient Education How to access health informa tion online Indication:Encounter for well adult exam with abnormal findings (Renamed from Encounter for general adult medical examination with abnormal findings) Start:19-Nov-2019 Instruction Type:Patient Education How to access health informa tion online - Detail Indication:Encounter for well adult exam with abnormal findings (Renamed from Encounter for general adult medical examination with abnormal findings) Start:19-Nov-2019 Instruction Type:Patient Education Patient Instructions Indication:Encounter for well adult exam with abnormal findings (Renamed from Encounter for general adult medical examination with abnormal findings) Start:19-Nov-2019 Instruction Type:Provider Instructions for Treatment How to access health informa tion online Indication:Encounter for hepatitis C virus screening test for high risk patient Start:10-Sep-2019 Instruction Type:Patient Education How to access health informa tion online - Detail Indication:Encounter for hepatitis C virus screening test for high risk patient Start:10-Sep-2019 Instruction Type:Patient Education Patient Instructions Indication:Encounter for hepatitis C virus screening test for high risk patient Start:10-Sep-2019 Instruction Type:Provider Instructions for Treatment [facility]; [facility] Work Phone: Instructions* Name Dates Details Patient Instructions Indication:Flu-like symptoms Start:26-Mar-2022 Instruction Type:Provider Instructions for Treatment How to Access Health Informa tion Online using Patient Portal and [employer] Indication:Flu-like symptoms Start:26-Mar-2022 Instruction Type:Patient Education Patient Instructions Indication:BMI 25.0-25.9,adult Start:13-Feb-2022 Instruction Type:Provider Instructions for Treatment How to Access Health Informa tion Online using Patient Portal and [employer] Indication:BMI 25.0-25.9,adult Start:13-Feb-2022 Instruction Type:Patient Education Patient Instructions Indication:Non-smoker Start:25-Jan-2022 Instruction Type:Provider Instructions for Treatment How to Access Health Informa tion Online using Patient Portal and [employer] Indication:Non-smoker Start:25-Jan-2022 Instruction Type:Patient Education Patient Instructions Indication:Encounter for well adult exam with abnormal findings (Renamed from Encounter for general adult medical examination with abnormal findings) Start:01-Dec-2020 Instruction Type:Provider Instructions for Treatment How to Access Health Informa tion Online using Patient Portal and [employer] Indication:Encounter for well adult exam with abnormal findings (Renamed from Encounter for general adult medical examination with abnormal findings) Start:01-Dec-2020 Instruction Type:Patient Education Patient Instructions Indication:Physical exam for work or camp (Renamed from Encounter for school health examination) Start:06-Jul-2020 Instruction Type:Provider Instructions for Treatment How to Access Health Informa tion Online using Patient Portal and [employer] Indication:Physical exam for work or camp (Renamed from Encounter for school health examination) Start:06-Jul-2020 Instruction Type:Patient Education Patient Instructions Indication:Low back pain Start:26-May-2020 Instruction Type:Provider Instructions for Treatment How to Access Health Informa tion Online using Patient Portal and [employer] Indication:Low back pain Start:26-May-2020 Instruction Type:Patient Education Patient Instructions Indication:BMI 27.0-27.9,adult Start:25-Feb-2020 Instruction Type:Provider Instructions for Treatment How to Access Health Informa tion Online using Patient Portal and [employer] Indication:BMI 27.0-27.9,adult Start:25-Feb-2020 Instruction Type:Patient Education How to access health informa tion online Indication:Encounter for well adult exam with abnormal findings (Renamed from Encounter for general adult medical examination with abnormal findings) Start:19-Nov-2019 Instruction Type:Patient Education How to access health informa tion online - Detail Indication:Encounter for well adult exam with abnormal findings (Renamed from Encounter for general adult medical examination with abnormal findings) Start:19-Nov-2019 Instruction Type:Patient Education Patient Instructions Indication:Encounter for well adult exam with abnormal findings (Renamed from Encounter for general adult medical examination with abnormal findings) Start:19-Nov-2019 Instruction Type:Provider Instructions for Treatment How to access health informa tion online Indication:Encounter for hepatitis C virus screening test for high risk patient Start:10-Sep-2019 Instruction Type:Patient Education How to access health informa tion online - Detail Indication:Encounter for hepatitis C virus screening test for high risk patient Start:10-Sep-2019 Instruction Type:Patient Education Patient Instructions Indication:Encounter for hepatitis C virus screening test for high risk patient Start:10-Sep-2019 Instruction Type:Provider Instructions for Treatment [facility]; [facility] Work Phone: Instructions* Name Dates Details Patient Instructions Indication:Flu-like symptoms Start:26-Mar-2022 Instruction Type:Provider Instructions for Treatment How to Access Health Informa tion Online using Patient Portal and [employer] Indication:Flu-like symptoms Start:26-Mar-2022 Instruction Type:Patient Education Patient Instructions Indication:BMI 25.0-25.9,adult Start:13-Feb-2022 Instruction Type:Provider Instructions for Treatment How to Access Health Informa tion Online using Patient Portal and [employer] Indication:BMI 25.0-25.9,adult Start:13-Feb-2022 Instruction Type:Patient Education Patient Instructions Indication:Non-smoker Start:25-Jan-2022 Instruction Type:Provider Instructions for Treatment How to Access Health Informa tion Online using Patient Portal and [employer] Indication:Non-smoker Start:25-Jan-2022 Instruction Type:Patient Education Patient Instructions Indication:Encounter for well adult exam with abnormal findings (Renamed from Encounter for general adult medical examination with abnormal findings) Start:01-Dec-2020 Instruction Type:Provider Instructions for Treatment How to Access Health Informa tion Online using Patient Portal and [employer] Indication:Encounter for well adult exam with abnormal findings (Renamed from Encounter for general adult medical examination with abnormal findings) Start:01-Dec-2020 Instruction Type:Patient Education Patient Instructions Indication:Physical exam for work or camp (Renamed from Encounter for school health examination) Start:06-Jul-2020 Instruction Type:Provider Instructions for Treatment How to Access Health Informa tion Online using Patient Portal and [employer] Indication:Physical exam for work or camp (Renamed from Encounter for school health examination) Start:06-Jul-2020 Instruction Type:Patient Education Patient Instructions Indication:Low back pain Start:26-May-2020 Instruction Type:Provider Instructions for Treatment How to Access Health Informa tion Online using Patient Portal and [employer] Indication:Low back pain Start:26-May-2020 Instruction Type:Patient Education Patient Instructions Indication:BMI 27.0-27.9,adult Start:25-Feb-2020 Instruction Type:Provider Instructions for Treatment How to Access Health Informa tion Online using Patient Portal and [employer] Indication:BMI 27.0-27.9,adult Start:25-Feb-2020 Instruction Type:Patient Education How to access health informa tion online Indication:Encounter for well adult exam with abnormal findings (Renamed from Encounter for general adult medical examination with abnormal findings) Start:19-Nov-2019 Instruction Type:Patient Education How to access health informa tion online - Detail Indication:Encounter for well adult exam with abnormal findings (Renamed from Encounter for general adult medical examination with abnormal findings) Start:19-Nov-2019 Instruction Type:Patient Education Patient Instructions Indication:Encounter for well adult exam with abnormal findings (Renamed from Encounter for general adult medical examination with abnormal findings) Start:19-Nov-2019 Instruction Type:Provider Instructions for Treatment How to access health informa tion online Indication:Encounter for hepatitis C virus screening test for high risk patient Start:10-Sep-2019 Instruction Type:Patient Education How to access health informa tion online - Detail Indication:Encounter for hepatitis C virus screening test for high risk patient Start:10-Sep-2019 Instruction Type:Patient Education Patient Instructions Indication:Encounter for hepatitis C virus screening test for high risk patient Start:10-Sep-2019 Instruction Type:Provider Instructions for Treatment [facility]; [facility] Work Phone: Instructions* Name Dates Details Patient Instructions Indication:BMI 25.0-25.9,adult Start:12-Apr-2022 Instruction Type:Provider Instructions for Treatment How to Access Health Informa tion Online using Patient Portal and [employer] Indication:BMI 25.0-25.9,adult Start:12-Apr-2022 Instruction Type:Patient Education Patient Instructions Indication:Flu-like symptoms Start:26-Mar-2022 Instruction Type:Provider Instructions for Treatment How to Access Health Informa tion Online using Patient Portal and [employer] Indication:Flu-like symptoms Start:26-Mar-2022 Instruction Type:Patient Education Patient Instructions Indication:BMI 25.0-25.9,adult Start:13-Feb-2022 Instruction Type:Provider Instructions for Treatment How to Access Health Informa tion Online using Patient Portal and [employer] Indication:BMI 25.0-25.9,adult Start:13-Feb-2022 Instruction Type:Patient Education Patient Instructions Indication:Non-smoker Start:25-Jan-2022 Instruction Type:Provider Instructions for Treatment How to Access Health Informa tion Online using Patient Portal and [employer] Indication:Non-smoker Start:25-Jan-2022 Instruction Type:Patient Education Patient Instructions Indication:Encounter for well adult exam with abnormal findings (Renamed from Encounter for general adult medical examination with abnormal findings) Start:01-Dec-2020 Instruction Type:Provider Instructions for Treatment How to Access Health Informa tion Online using Patient Portal and [employer] Indication:Encounter for well adult exam with abnormal findings (Renamed from Encounter for general adult medical examination with abnormal findings) Start:01-Dec-2020 Instruction Type:Patient Education Patient Instructions Indication:Physical exam for work or camp (Renamed from Encounter for school health examination) Start:06-Jul-2020 Instruction Type:Provider Instructions for Treatment How to Access Health Informa tion Online using Patient Portal and [employer] Indication:Physical exam for work or camp (Renamed from Encounter for school health examination) Start:06-Jul-2020 Instruction Type:Patient Education Patient Instructions Indication:Low back pain Start:26-May-2020 Instruction Type:Provider Instructions for Treatment How to Access Health Informa tion Online using Patient Portal and [employer] Indication:Low back pain Start:26-May-2020 Instruction Type:Patient Education Patient Instructions Indication:BMI 27.0-27.9,adult Start:25-Feb-2020 Instruction Type:Provider Instructions for Treatment How to Access Health Informa tion Online using Patient Portal and [employer] Indication:BMI 27.0-27.9,adult Start:25-Feb-2020 Instruction Type:Patient Education How to access health informa tion online Indication:Encounter for well adult exam with abnormal findings (Renamed from Encounter for general adult medical examination with abnormal findings) Start:19-Nov-2019 Instruction Type:Patient Education How to access health informa tion online - Detail Indication:Encounter for well adult exam with abnormal findings (Renamed from Encounter for general adult medical examination with abnormal findings) Start:19-Nov-2019 Instruction Type:Patient Education Patient Instructions Indication:Encounter for well adult exam with abnormal findings (Renamed from Encounter for general adult medical examination with abnormal findings) Start:19-Nov-2019 Instruction Type:Provider Instructions for Treatment How to access health informa tion online Indication:Encounter for hepatitis C virus screening test for high risk patient Start:10-Sep-2019 Instruction Type:Patient Education How to access health informa tion online - Detail Indication:Encounter for hepatitis C virus screening test for high risk patient Start:10-Sep-2019 Instruction Type:Patient Education Patient Instructions Indication:Encounter for hepatitis C virus screening test for high risk patient Start:10-Sep-2019 Instruction Type:Provider Instructions for Treatment [facility]; [facility] Work Phone: Instructions* Name Dates Details Patient Instructions Indication:BMI 25.0-25.9,adult Start:12-Apr-2022 Instruction Type:Provider Instructions for Treatment How to Access Health Informa tion Online using Patient Portal and [employer] Indication:BMI 25.0-25.9,adult Start:12-Apr-2022 Instruction Type:Patient Education Patient Instructions Indication:Flu-like symptoms Start:26-Mar-2022 Instruction Type:Provider Instructions for Treatment How to Access Health Informa tion Online using Patient Portal and [employer] Indication:Flu-like symptoms Start:26-Mar-2022 Instruction Type:Patient Education Patient Instructions Indication:BMI 25.0-25.9,adult Start:13-Feb-2022 Instruction Type:Provider Instructions for Treatment How to Access Health Informa tion Online using Patient Portal and [employer] Indication:BMI 25.0-25.9,adult Start:13-Feb-2022 Instruction Type:Patient Education Patient Instructions Indication:Non-smoker Start:25-Jan-2022 Instruction Type:Provider Instructions for Treatment How to Access Health Informa tion Online using Patient Portal and [employer] Indication:Non-smoker Start:25-Jan-2022 Instruction Type:Patient Education Patient Instructions Indication:Encounter for well adult exam with abnormal findings (Renamed from Encounter for general adult medical examination with abnormal findings) Start:01-Dec-2020 Instruction Type:Provider Instructions for Treatment How to Access Health Informa tion Online using Patient Portal and [employer] Indication:Encounter for well adult exam with abnormal findings (Renamed from Encounter for general adult medical examination with abnormal findings) Start:01-Dec-2020 Instruction Type:Patient Education Patient Instructions Indication:Physical exam for work or camp (Renamed from Encounter for school health examination) Start:06-Jul-2020 Instruction Type:Provider Instructions for Treatment How to Access Health Informa tion Online using Patient Portal and [employer] Indication:Physical exam for work or camp (Renamed from Encounter for school health examination) Start:06-Jul-2020 Instruction Type:Patient Education Patient Instructions Indication:Low back pain Start:26-May-2020 Instruction Type:Provider Instructions for Treatment How to Access Health Informa tion Online using Patient Portal and [employer] Indication:Low back pain Start:26-May-2020 Instruction Type:Patient Education Patient Instructions Indication:BMI 27.0-27.9,adult Start:25-Feb-2020 Instruction Type:Provider Instructions for Treatment How to Access Health Informa tion Online using Patient Portal and [employer] Indication:BMI 27.0-27.9,adult Start:25-Feb-2020 Instruction Type:Patient Education How to access health informa tion online Indication:Encounter for well adult exam with abnormal findings (Renamed from Encounter for general adult medical examination with abnormal findings) Start:19-Nov-2019 Instruction Type:Patient Education How to access health informa tion online - Detail Indication:Encounter for well adult exam with abnormal findings (Renamed from Encounter for general adult medical examination with abnormal findings) Start:19-Nov-2019 Instruction Type:Patient Education Patient Instructions Indication:Encounter for well adult exam with abnormal findings (Renamed from Encounter for general adult medical examination with abnormal findings) Start:19-Nov-2019 Instruction Type:Provider Instructions for Treatment How to access health informa tion online Indication:Encounter for hepatitis C virus screening test for high risk patient Start:10-Sep-2019 Instruction Type:Patient Education How to access health informa tion online - Detail Indication:Encounter for hepatitis C virus screening test for high risk patient Start:10-Sep-2019 Instruction Type:Patient Education Patient Instructions Indication:Encounter for hepatitis C virus screening test for high risk patient Start:10-Sep-2019 Instruction Type:Provider Instructions for Treatment [facility] Work Phone: Instructions* Name Dates Details Patient Instructions Indication:BMI 25.0-25.9,adult Start:12-Apr-2022 Instruction Type:Provider Instructions for Treatment How to Access Health Informa tion Online using Patient Portal and [employer] Indication:BMI 25.0-25.9,adult Start:12-Apr-2022 Instruction Type:Patient Education Patient Instructions Indication:Flu-like symptoms Start:26-Mar-2022 Instruction Type:Provider Instructions for Treatment How to Access Health Informa tion Online using Patient Portal and [employer] Apps Indication:Flu-like symptoms Start:26-Mar-2022 Instruction Type:Patient Education Patient Instructions Indication:BMI 25.0-25.9,adult Start:13-Feb-2022 Instruction Type:Provider Instructions for Treatment How to Access Health Informa tion Online using Patient Portal and [employer] Apps Indication:BMI 25.0-25.9,adult Start:13-Feb-2022 Instruction Type:Patient Education Patient Instructions Indication:Non-smoker Start:25-Jan-2022 Instruction Type:Provider Instructions for Treatment How to Access Health Informa tion Online using Patient Portal and [employer] Apps Indication:Non-smoker Start:25-Jan-2022 Instruction Type:Patient Education Patient Instructions Indication:Encounter for well adult exam with abnormal findings (Renamed from Encounter for general adult medical examination with abnormal findings) Start:01-Dec-2020 Instruction Type:Provider Instructions for Treatment How to Access Health Informa tion Online using Patient Portal and [employer] Apps Indication:Encounter for well adult exam with abnormal findings (Renamed from Encounter for general adult medical examination with abnormal findings) Start:01-Dec-2020 Instruction Type:Patient Education Patient Instructions Indication:Physical exam for work or camp (Renamed from Encounter for school health examination) Start:06-Jul-2020 Instruction Type:Provider Instructions for Treatment How to Access Health Informa tion Online using Patient Portal and [employer] Apps Indication:Physical exam for work or camp (Renamed from Encounter for school health examination) Start:06-Jul-2020 Instruction Type:Patient Education Patient Instructions Indication:Low back pain Start:26-May-2020 Instruction Type:Provider Instructions for Treatment How to Access Health Informa tion Online using Patient Portal and [employer] Apps Indication:Low back pain Start:26-May-2020 Instruction Type:Patient Education Patient Instructions Indication:BMI 27.0-27.9,adult Start:25-Feb-2020 Instruction Type:Provider Instructions for Treatment How to Access Health Informa tion Online using Patient Portal and [employer] Indication:BMI 27.0-27.9,adult Start:25-Feb-2020 Instruction Type:Patient Education How to access health informa tion online Indication:Encounter for well adult exam with abnormal findings (Renamed from Encounter for general adult medical examination with abnormal findings) Start:19-Nov-2019 Instruction Type:Patient Education How to access health informa tion online - Detail Indication:Encounter for well adult exam with abnormal findings (Renamed from Encounter for general adult medical examination with abnormal findings) Start:19-Nov-2019 Instruction Type:Patient Education Patient Instructions Indication:Encounter for well adult exam with abnormal findings (Renamed from Encounter for general adult medical examination with abnormal findings) Start:19-Nov-2019 Instruction Type:Provider Instructions for Treatment How to access health informa tion online Indication:Encounter for hepatitis C virus screening test for high risk patient Start:10-Sep-2019 Instruction Type:Patient Education How to access health informa tion online - Detail Indication:Encounter for hepatitis C virus screening test for high risk patient Start:10-Sep-2019 Instruction Type:Patient Education Patient Instructions Indication:Encounter for hepatitis C virus screening test for high risk patient Start:10-Sep-2019 Instruction Type:Provider Instructions for Treatment [facility]; [facility] Work Phone: Instructions* Name Dates Details Patient Instructions Indication:BMI 25.0-25.9,adult Start:26-Jun-2022 Instruction Type:Provider Instructions for Treatment How to Access Health Informa tion Online using Patient Portal and [employer] Indication:BMI 25.0-25.9,adult Start:26-Jun-2022 Instruction Type:Patient Education Patient Instructions Indication:BMI 25.0-25.9,adult Start:12-Apr-2022 Instruction Type:Provider Instructions for Treatment How to Access Health Informa tion Online using Patient Portal and [employer] Apps Indication:BMI 25.0-25.9,adult Start:12-Apr-2022 Instruction Type:Patient Education Patient Instructions Indication:Flu-like symptoms Start:26-Mar-2022 Instruction Type:Provider Instructions for Treatment How to Access Health Informa tion Online using Patient Portal and [employer] Indication:Flu-like symptoms Start:26-Mar-2022 Instruction Type:Patient Education Patient Instructions Indication:BMI 25.0-25.9,adult Start:13-Feb-2022 Instruction Type:Provider Instructions for Treatment How to Access Health Informa tion Online using Patient Portal and [employer] Indication:BMI 25.0-25.9,adult Start:13-Feb-2022 Instruction Type:Patient Education Patient Instructions Indication:Non-smoker Start:25-Jan-2022 Instruction Type:Provider Instructions for Treatment How to Access Health Informa tion Online using Patient Portal and [employer] Apps Indication:Non-smoker Start:25-Jan-2022 Instruction Type:Patient Education Patient Instructions Indication:Encounter for well adult exam with abnormal findings (Renamed from Encounter for general adult medical examination with abnormal findings) Start:01-Dec-2020 Instruction Type:Provider Instructions for Treatment How to Access Health Informa tion Online using Patient Portal and [employer] Apps Indication:Encounter for well adult exam with abnormal findings (Renamed from Encounter for general adult medical examination with abnormal findings) Start:01-Dec-2020 Instruction Type:Patient Education Patient Instructions Indication:Physical exam for work or camp (Renamed from Encounter for school health examination) Start:06-Jul-2020 Instruction Type:Provider Instructions for Treatment How to Access Health Informa tion Online using Patient Portal and [employer] Apps Indication:Physical exam for work or camp (Renamed from Encounter for school health examination) Start:06-Jul-2020 Instruction Type:Patient Education Patient Instructions Indication:Low back pain Start:26-May-2020 Instruction Type:Provider Instructions for Treatment How to Access Health Informa tion Online using Patient Portal and [employer] Apps Indication:Low back pain Start:26-May-2020 Instruction Type:Patient Education Patient Instructions Indication:BMI 27.0-27.9,adult Start:25-Feb-2020 Instruction Type:Provider Instructions for Treatment How to Access Health Informa tion Online using Patient Portal and [employer] Indication:BMI 27.0-27.9,adult Start:25-Feb-2020 Instruction Type:Patient Education How to access health informa tion online Indication:Encounter for well adult exam with abnormal findings (Renamed from Encounter for general adult medical examination with abnormal findings) Start:19-Nov-2019 Instruction Type:Patient Education How to access health informa tion online - Detail Indication:Encounter for well adult exam with abnormal findings (Renamed from Encounter for general adult medical examination with abnormal findings) Start:19-Nov-2019 Instruction Type:Patient Education Patient Instructions Indication:Encounter for well adult exam with abnormal findings (Renamed from Encounter for general adult medical examination with abnormal findings) Start:19-Nov-2019 Instruction Type:Provider Instructions for Treatment How to access health informa tion online Indication:Encounter for hepatitis C virus screening test for high risk patient Start:10-Sep-2019 Instruction Type:Patient Education How to access health informa tion online - Detail Indication:Encounter for hepatitis C virus screening test for high risk patient Start:10-Sep-2019 Instruction Type:Patient Education Patient Instructions Indication:Encounter for hepatitis C virus screening test for high risk patient Start:10-Sep-2019 Instruction Type:Provider Instructions for Treatment [facility]; [facility] Work Phone: Instructions* Name Dates Details Patient Instructions Indication:BMI 25.0-25.9,adult Start:26-Jun-2022 Instruction Type:Provider Instructions for Treatment How to Access Health Informa tion Online using Patient Portal and [employer] Indication:BMI 25.0-25.9,adult Start:26-Jun-2022 Instruction Type:Patient Education Patient Instructions Indication:BMI 25.0-25.9,adult Start:12-Apr-2022 Instruction Type:Provider Instructions for Treatment How to Access Health Informa tion Online using Patient Portal and [employer] Indication:BMI 25.0-25.9,adult Start:12-Apr-2022 Instruction Type:Patient Education Patient Instructions Indication:Flu-like symptoms Start:26-Mar-2022 Instruction Type:Provider Instructions for Treatment How to Access Health Informa tion Online using Patient Portal and [employer] Indication:Flu-like symptoms Start:26-Mar-2022 Instruction Type:Patient Education Patient Instructions Indication:BMI 25.0-25.9,adult Start:13-Feb-2022 Instruction Type:Provider Instructions for Treatment How to Access Health Informa tion Online using Patient Portal and [employer] Indication:BMI 25.0-25.9,adult Start:13-Feb-2022 Instruction Type:Patient Education Patient Instructions Indication:Non-smoker Start:25-Jan-2022 Instruction Type:Provider Instructions for Treatment How to Access Health Informa tion Online using Patient Portal and [employer] Indication:Non-smoker Start:25-Jan-2022 Instruction Type:Patient Education Patient Instructions Indication:Encounter for well adult exam with abnormal findings (Renamed from Encounter for general adult medical examination with abnormal findings) Start:01-Dec-2020 Instruction Type:Provider Instructions for Treatment How to Access Health Informa tion Online using Patient Portal and [employer] Indication:Encounter for well adult exam with abnormal findings (Renamed from Encounter for general adult medical examination with abnormal findings) Start:01-Dec-2020 Instruction Type:Patient Education Patient Instructions Indication:Physical exam for work or camp (Renamed from Encounter for school health examination) Start:06-Jul-2020 Instruction Type:Provider Instructions for Treatment How to Access Health Informa tion Online using Patient Portal and [employer] Apps Indication:Physical exam for work or camp (Renamed from Encounter for school health examination) Start:06-Jul-2020 Instruction Type:Patient Education Patient Instructions Indication:Low back pain Start:26-May-2020 Instruction Type:Provider Instructions for Treatment How to Access Health Informa tion Online using Patient Portal and [employer] Apps Indication:Low back pain Start:26-May-2020 Instruction Type:Patient Education Patient Instructions Indication:BMI 27.0-27.9,adult Start:25-Feb-2020 Instruction Type:Provider Instructions for Treatment How to Access Health Informa tion Online using Patient Portal and [employer] Indication:BMI 27.0-27.9,adult Start:25-Feb-2020 Instruction Type:Patient Education How to access health informa tion online Indication:Encounter for well adult exam with abnormal findings (Renamed from Encounter for general adult medical examination with abnormal findings) Start:19-Nov-2019 Instruction Type:Patient Education How to access health informa tion online - Detail Indication:Encounter for well adult exam with abnormal findings (Renamed from Encounter for general adult medical examination with abnormal findings) Start:19-Nov-2019 Instruction Type:Patient Education Patient Instructions Indication:Encounter for well adult exam with abnormal findings (Renamed from Encounter for general adult medical examination with abnormal findings) Start:19-Nov-2019 Instruction Type:Provider Instructions for Treatment How to access health informa tion online Indication:Encounter for hepatitis C virus screening test for high risk patient Start:10-Sep-2019 Instruction Type:Patient Education How to access health informa tion online - Detail Indication:Encounter for hepatitis C virus screening test for high risk patient Start:10-Sep-2019 Instruction Type:Patient Education Patient Instructions Indication:Encounter for hepatitis C virus screening test for high risk patient Start:10-Sep-2019 Instruction Type:Provider Instructions for Treatment [facility]; [facility] Work Phone: Instructions* Name Dates Details Patient Instructions Indication:BMI 25.0-25.9,adult Start:26-Jun-2022 Instruction Type:Provider Instructions for Treatment How to Access Health Informa tion Online using Patient Portal and [employer] Indication:BMI 25.0-25.9,adult Start:26-Jun-2022 Instruction Type:Patient Education Patient Instructions Indication:BMI 25.0-25.9,adult Start:12-Apr-2022 Instruction Type:Provider Instructions for Treatment How to Access Health Informa tion Online using Patient Portal and [employer] Indication:BMI 25.0-25.9,adult Start:12-Apr-2022 Instruction Type:Patient Education Patient Instructions Indication:Flu-like symptoms Start:26-Mar-2022 Instruction Type:Provider Instructions for Treatment How to Access Health Informa tion Online using Patient Portal and [employer] Indication:Flu-like symptoms Start:26-Mar-2022 Instruction Type:Patient Education Patient Instructions Indication:BMI 25.0-25.9,adult Start:13-Feb-2022 Instruction Type:Provider Instructions for Treatment How to Access Health Informa tion Online using Patient Portal and [employer] Indication:BMI 25.0-25.9,adult Start:13-Feb-2022 Instruction Type:Patient Education Patient Instructions Indication:Non-smoker Start:25-Jan-2022 Instruction Type:Provider Instructions for Treatment How to Access Health Informa tion Online using Patient Portal and [employer] Indication:Non-smoker Start:25-Jan-2022 Instruction Type:Patient Education Patient Instructions Indication:Encounter for well adult exam with abnormal findings (Renamed from Encounter for general adult medical examination with abnormal findings) Start:01-Dec-2020 Instruction Type:Provider Instructions for Treatment How to Access Health Informa tion Online using Patient Portal and [employer] Indication:Encounter for well adult exam with abnormal findings (Renamed from Encounter for general adult medical examination with abnormal findings) Start:01-Dec-2020 Instruction Type:Patient Education Patient Instructions Indication:Physical exam for work or camp (Renamed from Encounter for school health examination) Start:06-Jul-2020 Instruction Type:Provider Instructions for Treatment How to Access Health Informa tion Online using Patient Portal and [employer] Indication:Physical exam for work or camp (Renamed from Encounter for school health examination) Start:06-Jul-2020 Instruction Type:Patient Education Patient Instructions Indication:Low back pain Start:26-May-2020 Instruction Type:Provider Instructions for Treatment How to Access Health Informa tion Online using Patient Portal and [employer] Indication:Low back pain Start:26-May-2020 Instruction Type:Patient Education Patient Instructions Indication:BMI 27.0-27.9,adult Start:25-Feb-2020 Instruction Type:Provider Instructions for Treatment How to Access Health Informa tion Online using Patient Portal and [employer] Indication:BMI 27.0-27.9,adult Start:25-Feb-2020 Instruction Type:Patient Education How to access health informa tion online Indication:Encounter for well adult exam with abnormal findings (Renamed from Encounter for general adult medical examination with abnormal findings) Start:19-Nov-2019 Instruction Type:Patient Education How to access health informa tion online - Detail Indication:Encounter for well adult exam with abnormal findings (Renamed from Encounter for general adult medical examination with abnormal findings) Start:19-Nov-2019 Instruction Type:Patient Education Patient Instructions Indication:Encounter for well adult exam with abnormal findings (Renamed from Encounter for general adult medical examination with abnormal findings) Start:19-Nov-2019 Instruction Type:Provider Instructions for Treatment How to access health informa tion online Indication:Encounter for hepatitis C virus screening test for high risk patient Start:10-Sep-2019 Instruction Type:Patient Education How to access health informa tion online - Detail Indication:Encounter for hepatitis C virus screening test for high risk patient Start:10-Sep-2019 Instruction Type:Patient Education Patient Instructions Indication:Encounter for hepatitis C virus screening test for high risk patient Start:10-Sep-2019 Instruction Type:Provider Instructions for Treatment [facility]; [facility] Work Phone: Instructions* Name Dates Details Patient Instructions Indication:BMI 25.0-25.9,adult Start:26-Jun-2022 Instruction Type:Provider Instructions for Treatment How to Access Health Informa tion Online using Patient Portal and [employer] Indication:BMI 25.0-25.9,adult Start:26-Jun-2022 Instruction Type:Patient Education Patient Instructions Indication:BMI 25.0-25.9,adult Start:12-Apr-2022 Instruction Type:Provider Instructions for Treatment How to Access Health Informa tion Online using Patient Portal and [employer] Indication:BMI 25.0-25.9,adult Start:12-Apr-2022 Instruction Type:Patient Education Patient Instructions Indication:Flu-like symptoms Start:26-Mar-2022 Instruction Type:Provider Instructions for Treatment How to Access Health Informa tion Online using Patient Portal and [employer] Indication:Flu-like symptoms Start:26-Mar-2022 Instruction Type:Patient Education Patient Instructions Indication:BMI 25.0-25.9,adult Start:13-Feb-2022 Instruction Type:Provider Instructions for Treatment How to Access Health Informa tion Online using Patient Portal and [employer] Indication:BMI 25.0-25.9,adult Start:13-Feb-2022 Instruction Type:Patient Education Patient Instructions Indication:Non-smoker Start:25-Jan-2022 Instruction Type:Provider Instructions for Treatment How to Access Health Informa tion Online using Patient Portal and [employer] Indication:Non-smoker Start:25-Jan-2022 Instruction Type:Patient Education Patient Instructions Indication:Encounter for well adult exam with abnormal findings (Renamed from Encounter for general adult medical examination with abnormal findings) Start:01-Dec-2020 Instruction Type:Provider Instructions for Treatment How to Access Health Informa tion Online using Patient Portal and [employer] Indication:Encounter for well adult exam with abnormal findings (Renamed from Encounter for general adult medical examination with abnormal findings) Start:01-Dec-2020 Instruction Type:Patient Education Patient Instructions Indication:Physical exam for work or camp (Renamed from Encounter for school health examination) Start:06-Jul-2020 Instruction Type:Provider Instructions for Treatment How to Access Health Informa tion Online using Patient Portal and [employer] Indication:Physical exam for work or camp (Renamed from Encounter for school health examination) Start:06-Jul-2020 Instruction Type:Patient Education Patient Instructions Indication:Low back pain Start:26-May-2020 Instruction Type:Provider Instructions for Treatment How to Access Health Informa tion Online using Patient Portal and [employer] Indication:Low back pain Start:26-May-2020 Instruction Type:Patient Education Patient Instructions Indication:BMI 27.0-27.9,adult Start:25-Feb-2020 Instruction Type:Provider Instructions for Treatment How to Access Health Informa tion Online using Patient Portal and [employer] Indication:BMI 27.0-27.9,adult Start:25-Feb-2020 Instruction Type:Patient Education How to access health informa tion online Indication:Encounter for well adult exam with abnormal findings (Renamed from Encounter for general adult medical examination with abnormal findings) Start:19-Nov-2019 Instruction Type:Patient Education How to access health informa tion online - Detail Indication:Encounter for well adult exam with abnormal findings (Renamed from Encounter for general adult medical examination with abnormal findings) Start:19-Nov-2019 Instruction Type:Patient Education Patient Instructions Indication:Encounter for well adult exam with abnormal findings (Renamed from Encounter for general adult medical examination with abnormal findings) Start:19-Nov-2019 Instruction Type:Provider Instructions for Treatment How to access health informa tion online Indication:Encounter for hepatitis C virus screening test for high risk patient Start:10-Sep-2019 Instruction Type:Patient Education How to access health informa tion online - Detail Indication:Encounter for hepatitis C virus screening test for high risk patient Start:10-Sep-2019 Instruction Type:Patient Education Patient Instructions Indication:Encounter for hepatitis C virus screening test for high risk patient Start:10-Sep-2019 Instruction Type:Provider Instructions for Treatment [facility]; [facility] Work Phone: progress note No data available for this section [facility] for referral (narrative)No reason for referral information availableAs[facility] Work Phone: Reason for visit Narrative* Radiology (Routine) - New Request Specialty Diagnoses / Procedures Referred By Contac t Referred To Contact Diagnoses Spondylolisthesis, grade 1 Procedures [facility] Flora Browning MD [address] [place] [phone] Phone: tel: fax: Referral ID Status Reason Start Date Expiration Date V isits Requested Visits Authorized [id number] New Request 12/15/2024 01/09/2026 1 1 [place] [facility] Instructions Name Dates Details How to access health informa tion online Indication:Encounter for hepatitis C virus screening test for high risk patient Start:10-Sep-2019 Instruction Type:Patient Education How to access health informa tion online - Detail Indication:Encounter for hepatitis C virus screening test for high risk patient Start:10-Sep-2019 Instruction Type:Patient Education Patient Instructions Indication:Encounter for hepatitis C virus screening test for high risk patient Start:10-Sep-2019 Instruction Type:Provider Instructions for Treatment Name Dates Details How to access health informa tion online Indication:Encounter for hepatitis C virus screening test for high risk patient Start:10-Sep-2019 Instruction Type:Patient Education How to access health informa tion online - Detail Indication:Encounter for hepatitis C virus screening test for high risk patient Start:10-Sep-2019 Instruction Type:Patient Education Patient Instructions Indication:Encounter for hepatitis C virus screening test for high risk patient Start:10-Sep-2019 Instruction Type:Provider Instructions for Treatment Name Dates Details How to access health informa tion online Indication:Encounter for hepatitis C virus screening test for high risk patient Start:10-Sep-2019 Instruction Type:Patient Education How to access health informa tion online - Detail Indication:Encounter for hepatitis C virus screening test for high risk patient Start:10-Sep-2019 Instruction Type:Patient Education Patient Instructions Indication:Encounter for hepatitis C virus screening test for high risk patient Start:10-Sep-2019 Instruction Type:Provider Instructions for Treatment Name Dates Details How to access health informa tion online Indication:Encounter for well adult exam with abnormal findings (Renamed from Encounter for general adult medical examination with abnormal findings) Start:19-Nov-2019 Instruction Type:Patient Education How to access health informa tion online - Detail Indication:Encounter for well adult exam with abnormal findings (Renamed from Encounter for general adult medical examination with abnormal findings) Start:19-Nov-2019 Instruction Type:Patient Education Patient Instructions Indication:Encounter for well adult exam with abnormal findings (Renamed from Encounter for general adult medical examination with abnormal findings) Start:19-Nov-2019 Instruction Type:Provider Instructions for Treatment How to access health informa tion online Indication:Encounter for hepatitis C virus screening test for high risk patient Start:10-Sep-2019 Instruction Type:Patient Education How to access health informa tion online - Detail Indication:Encounter for hepatitis C virus screening test for high risk patient Start:10-Sep-2019 Instruction Type:Patient Education Patient Instructions Indication:Encounter for hepatitis C virus screening test for high risk patient Start:10-Sep-2019 Instruction Type:Provider Instructions for Treatment Name Dates Details How to access health informa tion online Indication:Encounter for well adult exam with abnormal findings (Renamed from Encounter for general adult medical examination with abnormal findings) Start:19-Nov-2019 Instruction Type:Patient Education How to access health informa tion online - Detail Indication:Encounter for well adult exam with abnormal findings (Renamed from Encounter for general adult medical examination with abnormal findings) Start:19-Nov-2019 Instruction Type:Patient Education Patient Instructions Indication:Encounter for well adult exam with abnormal findings (Renamed from Encounter for general adult medical examination with abnormal findings) Start:19-Nov-2019 Instruction Type:Provider Instructions for Treatment How to access health informa tion online Indication:Encounter for hepatitis C virus screening test for high risk patient Start:10-Sep-2019 Instruction Type:Patient Education How to access health informa tion online - Detail Indication:Encounter for hepatitis C virus screening test for high risk patient Start:10-Sep-2019 Instruction Type:Patient Education Patient Instructions Indication:Encounter for hepatitis C virus screening test for high risk patient Start:10-Sep-2019 Instruction Type:Provider Instructions for Treatment Name Dates Details How to access health informa tion online Indication:Encounter for well adult exam with abnormal findings (Renamed from Encounter for general adult medical examination with abnormal findings) Start:19-Nov-2019 Instruction Type:Patient Education How to access health informa tion online - Detail Indication:Encounter for well adult exam with abnormal findings (Renamed from Encounter for general adult medical examination with abnormal findings) Start:19-Nov-2019 Instruction Type:Patient Education Patient Instructions Indication:Encounter for well adult exam with abnormal findings (Renamed from Encounter for general adult medical examination with abnormal findings) Start:19-Nov-2019 Instruction Type:Provider Instructions for Treatment How to access health informa tion online Indication:Encounter for hepatitis C virus screening test for high risk patient Start:10-Sep-2019 Instruction Type:Patient Education How to access health informa tion online - Detail Indication:Encounter for hepatitis C virus screening test for high risk patient Start:10-Sep-2019 Instruction Type:Patient Education Patient Instructions Indication:Encounter for hepatitis C virus screening test for high risk patient Start:10-Sep-2019 Instruction Type:Provider Instructions for Treatment Name Dates Details How to access health informa tion online Indication:Encounter for well adult exam with abnormal findings (Renamed from Encounter for general adult medical examination with abnormal findings) Start:19-Nov-2019 Instruction Type:Patient Education How to access health informa tion online - Detail Indication:Encounter for well adult exam with abnormal findings (Renamed from Encounter for general adult medical examination with abnormal findings) Start:19-Nov-2019 Instruction Type:Patient Education Patient Instructions Indication:Encounter for well adult exam with abnormal findings (Renamed from Encounter for general adult medical examination with abnormal findings) Start:19-Nov-2019 Instruction Type:Provider Instructions for Treatment How to access health informa tion online Indication:Encounter for hepatitis C virus screening test for high risk patient Start:10-Sep-2019 Instruction Type:Patient Education How to access health informa tion online - Detail Indication:Encounter for hepatitis C virus screening test for high risk patient Start:10-Sep-2019 Instruction Type:Patient Education Patient Instructions Indication:Encounter for hepatitis C virus screening test for high risk patient Start:10-Sep-2019 Instruction Type:Provider Instructions for Treatment Name Dates Details How to access health informa tion online Indication:Encounter for well adult exam with abnormal findings (Renamed from Encounter for general adult medical examination with abnormal findings) Start:19-Nov-2019 Instruction Type:Patient Education How to access health informa tion online - Detail Indication:Encounter for well adult exam with abnormal findings (Renamed from Encounter for general adult medical examination with abnormal findings) Start:19-Nov-2019 Instruction Type:Patient Education Patient Instructions Indication:Encounter for well adult exam with abnormal findings (Renamed from Encounter for general adult medical examination with abnormal findings) Start:19-Nov-2019 Instruction Type:Provider Instructions for Treatment How to access health informa tion online Indication:Encounter for hepatitis C virus screening test for high risk patient Start:10-Sep-2019 Instruction Type:Patient Education How to access health informa tion online - Detail Indication:Encounter for hepatitis C virus screening test for high risk patient Start:10-Sep-2019 Instruction Type:Patient Education Patient Instructions Indication:Encounter for hepatitis C virus screening test for high risk patient Start:10-Sep-2019 Instruction Type:Provider Instructions for Treatment Name Dates Details How to access health informa tion online Indication:Encounter for well adult exam with abnormal findings (Renamed from Encounter for general adult medical examination with abnormal findings) Start:19-Nov-2019 Instruction Type:Patient Education How to access health informa tion online - Detail Indication:Encounter for well adult exam with abnormal findings (Renamed from Encounter for general adult medical examination with abnormal findings) Start:19-Nov-2019 Instruction Type:Patient Education Patient Instructions Indication:Encounter for well adult exam with abnormal findings (Renamed from Encounter for general adult medical examination with abnormal findings) Start:19-Nov-2019 Instruction Type:Provider Instructions for Treatment How to access health informa tion online Indication:Encounter for hepatitis C virus screening test for high risk patient Start:10-Sep-2019 Instruction Type:Patient Education How to access health informa tion online - Detail Indication:Encounter for hepatitis C virus screening test for high risk patient Start:10-Sep-2019 Instruction Type:Patient Education Patient Instructions Indication:Encounter for hepatitis C virus screening test for high risk patient Start:10-Sep-2019 Instruction Type:Provider Instructions for Treatment Name Dates Details How to access health informa tion online Indication:Encounter for well adult exam with abnormal findings (Renamed from Encounter for general adult medical examination with abnormal findings) Start:19-Nov-2019 Instruction Type:Patient Education How to access health informa tion online - Detail Indication:Encounter for well adult exam with abnormal findings (Renamed from Encounter for general adult medical examination with abnormal findings) Start:19-Nov-2019 Instruction Type:Patient Education Patient Instructions Indication:Encounter for well adult exam with abnormal findings (Renamed from Encounter for general adult medical examination with abnormal findings) Start:19-Nov-2019 Instruction Type:Provider Instructions for Treatment How to access health informa tion online Indication:Encounter for hepatitis C virus screening test for high risk patient Start:10-Sep-2019 Instruction Type:Patient Education How to access health informa tion online - Detail Indication:Encounter for hepatitis C virus screening test for high risk patient Start:10-Sep-2019 Instruction Type:Patient Education Patient Instructions Indication:Encounter for hepatitis C virus screening test for high risk patient Start:10-Sep-2019 Instruction Type:Provider Instructions for Treatment Name Dates Details How to access health informa tion online Indication:Encounter for well adult exam with abnormal findings (Renamed from Encounter for general adult medical examination with abnormal findings) Start:19-Nov-2019 Instruction Type:Patient Education How to access health informa tion online - Detail Indication:Encounter for well adult exam with abnormal findings (Renamed from Encounter for general adult medical examination with abnormal findings) Start:19-Nov-2019 Instruction Type:Patient Education Patient Instructions Indication:Encounter for well adult exam with abnormal findings (Renamed from Encounter for general adult medical examination with abnormal findings) Start:19-Nov-2019 Instruction Type:Provider Instructions for Treatment How to access health informa tion online Indication:Encounter for hepatitis C virus screening test for high risk patient Start:10-Sep-2019 Instruction Type:Patient Education How to access health informa tion online - Detail Indication:Encounter for hepatitis C virus screening test for high risk patient Start:10-Sep-2019 Instruction Type:Patient Education Patient Instructions Indication:Encounter for hepatitis C virus screening test for high risk patient Start:10-Sep-2019 Instruction Type:Provider Instructions for Treatment Name Dates Details How to access health informa tion online Indication:Encounter for well adult exam with abnormal findings (Renamed from Encounter for general adult medical examination with abnormal findings) Start:19-Nov-2019 Instruction Type:Patient Education How to access health informa tion online - Detail Indication:Encounter for well adult exam with abnormal findings (Renamed from Encounter for general adult medical examination with abnormal findings) Start:19-Nov-2019 Instruction Type:Patient Education Patient Instructions Indication:Encounter for well adult exam with abnormal findings (Renamed from Encounter for general adult medical examination with abnormal findings) Start:19-Nov-2019 Instruction Type:Provider Instructions for Treatment How to access health informa tion online Indication:Encounter for hepatitis C virus screening test for high risk patient Start:10-Sep-2019 Instruction Type:Patient Education How to access health informa tion online - Detail Indication:Encounter for hepatitis C virus screening test for high risk patient Start:10-Sep-2019 Instruction Type:Patient Education Patient Instructions Indication:Encounter for hepatitis C virus screening test for high risk patient Start:10-Sep-2019 Instruction Type:Provider Instructions for Treatment Name Dates Details How to access health informa tion online Indication:Encounter for well adult exam with abnormal findings (Renamed from Encounter for general adult medical examination with abnormal findings) Start:19-Nov-2019 Instruction Type:Patient Education How to access health informa tion online - Detail Indication:Encounter for well adult exam with abnormal findings (Renamed from Encounter for general adult medical examination with abnormal findings) Start:19-Nov-2019 Instruction Type:Patient Education Patient Instructions Indication:Encounter for well adult exam with abnormal findings (Renamed from Encounter for general adult medical examination with abnormal findings) Start:19-Nov-2019 Instruction Type:Provider Instructions for Treatment How to access health informa tion online Indication:Encounter for hepatitis C virus screening test for high risk patient Start:10-Sep-2019 Instruction Type:Patient Education How to access health informa tion online - Detail Indication:Encounter for hepatitis C virus screening test for high risk patient Start:10-Sep-2019 Instruction Type:Patient Education Patient Instructions Indication:Encounter for hepatitis C virus screening test for high risk patient Start:10-Sep-2019 Instruction Type:Provider Instructions for Treatment Name Dates Details Patient Instructions Indication:BMI 27.0-27.9,adult Start:25-Feb-2020 Instruction Type:Provider Instructions for Treatment How to Access Health Informa tion Online using Patient Portal and [employer] Apps Indication:BMI 27.0-27.9,adult Start:25-Feb-2020 Instruction Type:Patient Education How to access health informa tion online Indication:Encounter for well adult exam with abnormal findings (Renamed from Encounter for general adult medical examination with abnormal findings) Start:19-Nov-2019 Instruction Type:Patient Education How to access health informa tion online - Detail Indication:Encounter for well adult exam with abnormal findings (Renamed from Encounter for general adult medical examination with abnormal findings) Start:19-Nov-2019 Instruction Type:Patient Education Patient Instructions Indication:Encounter for well adult exam with abnormal findings (Renamed from Encounter for general adult medical examination with abnormal findings) Start:19-Nov-2019 Instruction Type:Provider Instructions for Treatment How to access health informa tion online Indication:Encounter for hepatitis C virus screening test for high risk patient Start:10-Sep-2019 Instruction Type:Patient Education How to access health informa tion online - Detail Indication:Encounter for hepatitis C virus screening test for high risk patient Start:10-Sep-2019 Instruction Type:Patient Education Patient Instructions Indication:Encounter for hepatitis C virus screening test for high risk patient Start:10-Sep-2019 Instruction Type:Provider Instructions for Treatment Name Dates Details Patient Instructions Indication:BMI 27.0-27.9,adult Start:25-Feb-2020 Instruction Type:Provider Instructions for Treatment How to Access Health Informa tion Online using Patient Portal and [employer] Indication:BMI 27.0-27.9,adult Start:25-Feb-2020 Instruction Type:Patient Education How to access health informa tion online Indication:Encounter for well adult exam with abnormal findings (Renamed from Encounter for general adult medical examination with abnormal findings) Start:19-Nov-2019 Instruction Type:Patient Education How to access health informa tion online - Detail Indication:Encounter for well adult exam with abnormal findings (Renamed from Encounter for general adult medical examination with abnormal findings) Start:19-Nov-2019 Instruction Type:Patient Education Patient Instructions Indication:Encounter for well adult exam with abnormal findings (Renamed from Encounter for general adult medical examination with abnormal findings) Start:19-Nov-2019 Instruction Type:Provider Instructions for Treatment How to access health informa tion online Indication:Encounter for hepatitis C virus screening test for high risk patient Start:10-Sep-2019 Instruction Type:Patient Education How to access health informa tion online - Detail Indication:Encounter for hepatitis C virus screening test for high risk patient Start:10-Sep-2019 Instruction Type:Patient Education Patient Instructions Indication:Encounter for hepatitis C virus screening test for high risk patient Start:10-Sep-2019 Instruction Type:Provider Instructions for Treatment Name Dates Details How to access health informa tion online Indication:Encounter for well adult exam with abnormal findings (Renamed from Encounter for general adult medical examination with abnormal findings) Start:19-Nov-2019 Instruction Type:Patient Education How to access health informa tion online - Detail Indication:Encounter for well adult exam with abnormal findings (Renamed from Encounter for general adult medical examination with abnormal findings) Start:19-Nov-2019 Instruction Type:Patient Education Patient Instructions Indication:Encounter for well adult exam with abnormal findings (Renamed from Encounter for general adult medical examination with abnormal findings) Start:19-Nov-2019 Instruction Type:Provider Instructions for Treatment How to access health informa tion online Indication:Encounter for hepatitis C virus screening test for high risk patient Start:10-Sep-2019 Instruction Type:Patient Education How to access health informa tion online - Detail Indication:Encounter for hepatitis C virus screening test for high risk patient Start:10-Sep-2019 Instruction Type:Patient Education Patient Instructions Indication:Encounter for hepatitis C virus screening test for high risk patient Start:10-Sep-2019 Instruction Type:Provider Instructions for Treatment Name Dates Details Patient Instructions Indication:Low back pain Start:26-May-2020 Instruction Type:Provider Instructions for Treatment How to Access Health Informa tion Online using Patient Portal and [employer] Indication:Low back pain Start:26-May-2020 Instruction Type:Patient Education Patient Instructions Indication:BMI 27.0-27.9,adult Start:25-Feb-2020 Instruction Type:Provider Instructions for Treatment How to Access Health Informa tion Online using Patient Portal and [employer] Apps Indication:BMI 27.0-27.9,adult Start:25-Feb-2020 Instruction Type:Patient Education How to access health informa tion online Indication:Encounter for well adult exam with abnormal findings (Renamed from Encounter for general adult medical examination with abnormal findings) Start:19-Nov-2019 Instruction Type:Patient Education How to access health informa tion online - Detail Indication:Encounter for well adult exam with abnormal findings (Renamed from Encounter for general adult medical examination with abnormal findings) Start:19-Nov-2019 Instruction Type:Patient Education Patient Instructions Indication:Encounter for well adult exam with abnormal findings (Renamed from Encounter for general adult medical examination with abnormal findings) Start:19-Nov-2019 Instruction Type:Provider Instructions for Treatment How to access health informa tion online Indication:Encounter for hepatitis C virus screening test for high risk patient Start:10-Sep-2019 Instruction Type:Patient Education How to access health informa tion online - Detail Indication:Encounter for hepatitis C virus screening test for high risk patient Start:10-Sep-2019 Instruction Type:Patient Education Patient Instructions Indication:Encounter for hepatitis C virus screening test for high risk patient Start:10-Sep-2019 Instruction Type:Provider Instructions for Treatment Family History Unknown Family Member Name Dates Details Daughter 1 Status:Active Father Comments:CAD 55-60 years old . HTN nonsmokers Status:Active Maternal Grandfather Comments:brain cancer Status:Active Mother Comments:afib Status:Active Paternal Grandfather Comments:CAD in 55-60's Status:Active paternal uncle Comments:bone cancer CAD 60' s Status:Active paternal uncle Comments:CAD 70's Status:Active Sister 1 Comments:healthy Status:Active Son 1 Status:Active Son 2 Status:Active Unknown Family Member Name Dates Details Daughter 1 Status:Active Father Comments:CAD 55-60 years old . HTN nonsmokers Status:Active Maternal Grandfather Comments:brain cancer Status:Active Mother Comments:afib, cutaneous non Hodkin's lymphoma Status:Active Paternal Grandfather Comments:CAD in 55-60's Status:Active paternal uncle Comments:bone cancer CAD 60' s Status:Active paternal uncle Comments:CAD 70's Status:Active Sister 1 Comments:healthy Status:Active Son 1 Status:Active Son 2 Status:Active Unknown Family Member Name Dates Details Daughter 1 Status:Active Father Comments:CAD 55-60 years old . HTN nonsmokers Status:Active Maternal Grandfather Comments:brain cancer Status:Active Mother Comments:afib, cutaneous non Hodkin's lymphoma Status:Active Paternal Grandfather Comments:CAD in 55-60's Status:Active paternal uncle Comments:bone cancer CAD 60' s Status:Active paternal uncle Comments:CAD 70's Status:Active Sister 1 Comments:healthy Status:Active Son 1 Status:Active Son 2 Status:Active Unknown Family Member Name Dates Details Daughter 1 Status:Active Father Comments:CAD 55-60 years old . HTN nonsmokers Status:Active Maternal Grandfather Comments:brain cancer Status:Active Mother Comments:afib, cutaneous non Hodkin's lymphoma Status:Active Paternal Grandfather Comments:CAD in 55-60's Status:Active paternal uncle Comments:bone cancer CAD 60' s Status:Active paternal uncle Comments:CAD 70's Status:Active Sister 1 Comments:healthy Status:Active Son 1 Status:Active Son 2 Status:Active Unknown Family Member Name Dates Details Daughter 1 Status:Active Father Comments:CAD 55-60 years old . HTN nonsmokers Status:Active Maternal Grandfather Comments:brain cancer Status:Active Mother Comments:afib, cutaneous non Hodkin's lymphoma Status:Active Paternal Grandfather Comments:CAD in 55-60's Status:Active paternal uncle Comments:bone cancer CAD 60' s Status:Active paternal uncle Comments:CAD 70's Status:Active Sister 1 Comments:healthy Status:Active Son 1 Status:Active Son 2 Status:Active Unknown Family Member Name Dates Details Daughter 1 Status:Active Father Comments:CAD 55-60 years old . HTN nonsmokers Status:Active Maternal Grandfather Comments:brain cancer Status:Active Mother Comments:afib, cutaneous non Hodkin's lymphoma Status:Active Paternal Grandfather Comments:CAD in 55-60's Status:Active paternal uncle Comments:bone cancer CAD 60' s Status:Active paternal uncle Comments:CAD 70's Status:Active Sister 1 Comments:healthy Status:Active Son 1 Status:Active Son 2 Status:Active Unknown Family Member Name Dates Details Daughter 1 Status:Active Father Comments:CAD 55-60 years old . HTN nonsmokers Status:Active Maternal Grandfather Comments:brain cancer Status:Active Mother Comments:afib, cutaneous non Hodkin's lymphoma Status:Active Paternal Grandfather Comments:CAD in 55-60's Status:Active paternal uncle Comments:bone cancer CAD 60' s Status:Active paternal uncle Comments:CAD 70's Status:Active Sister 1 Comments:healthy Status:Active Son 1 Status:Active Son 2 Status:Active Unknown Family Member Name Dates Details Daughter 1 Status:Active Father Comments:CAD 55-60 years old . HTN nonsmokers Status:Active Maternal Grandfather Comments:brain cancer Status:Active Mother Comments:afib, cutaneous non Hodkin's lymphoma Status:Active Paternal Grandfather Comments:CAD in 55-60's Status:Active paternal uncle Comments:bone cancer CAD 60' s Status:Active paternal uncle Comments:CAD 70's Status:Active Sister 1 Comments:healthy Status:Active Son 1 Status:Active Son 2 Status:Active Unknown Family Member Name Dates Details Daughter 1 Status:Active Father Comments:CAD 55-60 years old . HTN nonsmokers Status:Active Maternal Grandfather Comments:brain cancer Status:Active Mother Comments:afib, cutaneous non Hodkin's lymphoma Status:Active Paternal Grandfather Comments:CAD in 55-60's Status:Active paternal uncle Comments:bone cancer CAD 60' s Status:Active paternal uncle Comments:CAD 70's Status:Active Sister 1 Comments:healthy Status:Active Son 1 Status:Active Son 2 Status:Active Unknown Family Member Name Dates Details Daughter 1 Status:Active Father Comments:CAD 55-60 years old . HTN nonsmokers Status:Active Maternal Grandfather Comments:brain cancer Status:Active Mother Comments:afib, cutaneous non Hodkin's lymphoma Status:Active Paternal Grandfather Comments:CAD in 55-60's Status:Active paternal uncle Comments:bone cancer CAD 60' s Status:Active paternal uncle Comments:CAD 70's Status:Active Sister 1 Comments:healthy Status:Active Son 1 Status:Active Son 2 Status:Active Unknown Family Member Name Dates Details Daughter 1 Status:Active Father Comments:CAD 55-60 years old . HTN nonsmokers Status:Active Maternal Grandfather Comments:brain cancer Status:Active Mother Comments:afib, cutaneous non Hodkin's lymphoma Status:Active Paternal Grandfather Comments:CAD in 55-60's Status:Active paternal uncle Comments:bone cancer CAD 60' s Status:Active paternal uncle Comments:CAD 70's Status:Active Sister 1 Comments:healthy Status:Active Son 1 Status:Active Son 2 Status:Active Unknown Family Member Name Dates Details Daughter 1 Status:Active Father Comments:CAD 55-60 years old . HTN nonsmokers Status:Active Maternal Grandfather Comments:brain cancer Status:Active Mother Comments:afib, cutaneous non Hodkin's lymphoma Status:Active Paternal Grandfather Comments:CAD in 55-60's Status:Active paternal uncle Comments:bone cancer CAD 60' s Status:Active paternal uncle Comments:CAD 70's Status:Active Sister 1 Comments:healthy Status:Active Son 1 Status:Active Son 2 Status:Active Unknown Family Member Name Dates Details Daughter 1 Status:Active Father Comments:CAD 55-60 years old . HTN nonsmokers Status:Active Maternal Grandfather Comments:brain cancer Status:Active Mother Comments:afib, cutaneous non Hodkin's lymphoma Status:Active Paternal Grandfather Comments:CAD in 55-60's Status:Active paternal uncle Comments:bone cancer CAD 60' s Status:Active paternal uncle Comments:CAD 70's Status:Active Sister 1 Comments:healthy Status:Active Son 1 Status:Active Son 2 Status:Active Unknown Family Member Name Dates Details Daughter 1 Status:Active Father Comments:CAD 55-60 years old . HTN nonsmokers Status:Active Maternal Grandfather Comments:brain cancer Status:Active Mother Comments:afib, cutaneous non Hodkin's lymphoma Status:Active Paternal Grandfather Comments:CAD in 55-60's Status:Active paternal uncle Comments:bone cancer CAD 60' s Status:Active paternal uncle Comments:CAD 70's Status:Active Sister 1 Comments:healthy Status:Active Son 1 Status:Active Son 2 Status:Active Unknown Family Member Name Dates Details Daughter 1 Status:Active Father Comments:CAD 55-60 years old . HTN nonsmokers Status:Active Maternal Grandfather Comments:brain cancer Status:Active Mother Comments:afib, cutaneous non Hodkin's lymphoma Status:Active Paternal Grandfather Comments:CAD in 55-60's Status:Active paternal uncle Comments:bone cancer CAD 60' s Status:Active paternal uncle Comments:CAD 70's Status:Active Sister 1 Comments:healthy Status:Active Son 1 Status:Active Son 2 Status:Active Unknown Family Member Name Dates Details Daughter 1 Status:Active Father Comments:CAD 55-60 years old . HTN nonsmokers Status:Active Maternal Grandfather Comments:brain cancer Status:Active Mother Comments:afib, cutaneous non Hodkin's lymphoma Status:Active Paternal Grandfather Comments:CAD in 55-60's Status:Active paternal uncle Comments:bone cancer CAD 60' s Status:Active paternal uncle Comments:CAD 70's Status:Active Sister 1 Comments:healthy Status:Active Son 1 Status:Active Son 2 Status:Active Unknown Family Member Name Dates Details Daughter 1 Status:Active Father Comments:CAD 55-60 years old . HTN nonsmokers Status:Active Maternal Grandfather Comments:brain cancer Status:Active Mother Comments:afib, cutaneous non Hodkin's lymphoma Status:Active Paternal Grandfather Comments:CAD in 55-60's Status:Active paternal uncle Comments:bone cancer CAD 60' s Status:Active paternal uncle Comments:CAD 70's Status:Active Sister 1 Comments:healthy Status:Active Son 1 Status:Active Son 2 Status:Active Unknown Family Member Name Dates Details Daughter 1 Status:Active Father Comments:CAD 55-60 years old . HTN nonsmokers Status:Active Maternal Grandfather Comments:brain cancer Status:Active Mother Comments:afib, cutaneous non Hodkin's lymphoma Status:Active Paternal Grandfather Comments:CAD in 55-60's Status:Active paternal uncle Comments:bone cancer CAD 60' s Status:Active paternal uncle Comments:CAD 70's Status:Active Sister 1 Comments:healthy Status:Active Son 1 Status:Active Son 2 Status:Active Unknown Family Member Name Dates Details Daughter 1 Status:Active Father Comments:CAD 55-60 years old . HTN nonsmokers Status:Active Maternal Grandfather Comments:brain cancer Status:Active Mother Comments:afib, cutaneous non Hodkin's lymphoma Status:Active Paternal Grandfather Comments:CAD in 55-60's Status:Active paternal uncle Comments:bone cancer CAD 60' s Status:Active paternal uncle Comments:CAD 70's Status:Active Sister 1 Comments:healthy Status:Active Son 1 Status:Active Son 2 Status:Active Unknown Family Member Name Dates Details Daughter 1 Status:Active Father Comments:CAD 55-60 years old . HTN nonsmokers Status:Active Maternal Grandfather Comments:brain cancer Status:Active Mother Comments:afib, cutaneous non Hodkin's lymphoma Status:Active Paternal Grandfather Comments:CAD in 55-60's Status:Active paternal uncle Comments:bone cancer CAD 60' s Status:Active paternal uncle Comments:CAD 70's Status:Active Sister 1 Comments:healthy Status:Active Son 1 Status:Active Son 2 Status:Active Unknown Family Member Name Dates Details Daughter 1 Status:Active Father Comments:CAD 55-60 years old . HTN nonsmokers Status:Active Maternal Grandfather Comments:brain cancer Status:Active Mother Comments:afib, cutaneous non Hodkin's lymphoma Status:Active Paternal Grandfather Comments:CAD in 55-60's Status:Active paternal uncle Comments:CAD 70's Status:Active paternal uncle Comments:bone cancer CAD 60' s Status:Active Sister 1 Comments:healthy Status:Active Son 1 Status:Active Son 2 Status:Active Unknown Family Member Name Dates Details Daughter 1 Status:Active Father Comments:CAD 55-60 years old . HTN nonsmokers Status:Active Maternal Grandfather Comments:brain cancer Status:Active Mother Comments:afib, cutaneous non Hodkin's lymphoma Status:Active Paternal Grandfather Comments:CAD in 55-60's Status:Active paternal uncle Comments:bone cancer CAD 60' s Status:Active paternal uncle Comments:CAD 70's Status:Active Sister 1 Comments:healthy Status:Active Son 1 Status:Active Son 2 Status:Active Unknown Family Member Name Dates Details Daughter 1 Status:Active Father Comments:CAD 55-60 years old . HTN nonsmokers Status:Active Maternal Grandfather Comments:brain cancer Status:Active Mother Comments:afib, cutaneous non Hodkin's lymphoma Status:Active Paternal Grandfather Comments:CAD in 55-60's Status:Active paternal uncle Comments:bone cancer CAD 60' s Status:Active paternal uncle Comments:CAD 70's Status:Active Sister 1 Comments:healthy Status:Active Son 1 Status:Active Son 2 Status:Active Unknown Family Member Name Dates Details Daughter 1 Status:Active Father Comments:CAD 55-60 years old . HTN nonsmokers Status:Active Maternal Grandfather Comments:brain cancer Status:Active Mother Comments:afib, cutaneous non Hodkin's lymphoma Status:Active Paternal Grandfather Comments:CAD in 55-60's Status:Active paternal uncle Comments:CAD 70's Status:Active paternal uncle Comments:bone cancer CAD 60' s Status:Active Sister 1 Comments:healthy Status:Active Son 1 Status:Active Son 2 Status:Active Unknown Family Member Name Dates Details Daughter 1 Status:Active Father Comments:CAD 55-60 years old . HTN nonsmokers Status:Active Maternal Grandfather Comments:brain cancer Status:Active Mother Comments:afib, cutaneous non Hodkin's lymphoma Status:Active Paternal Grandfather Comments:CAD in 55-60's Status:Active paternal uncle Comments:CAD 70's Status:Active paternal uncle Comments:bone cancer CAD 60' s Status:Active Sister 1 Comments:healthy Status:Active Son 1 Status:Active Son 2 Status:Active Unknown Family Member Name Dates Details Daughter 1 Status:Active Father Comments:CAD 55-60 years old . HTN nonsmokers Status:Active Maternal Grandfather Comments:brain cancer Status:Active Mother Comments:afib, cutaneous non Hodkin's lymphoma Status:Active Paternal Grandfather Comments:CAD in 55-60's Status:Active paternal uncle Comments:CAD 70's Status:Active paternal uncle Comments:bone cancer CAD 60' s Status:Active Sister 1 Comments:healthy Status:Active Son 1 Status:Active Son 2 Status:Active Unknown Family Member Name Dates Details Daughter 1 Status:Active Father Comments:CAD 55-60 years old . HTN nonsmokers Status:Active Maternal Grandfather Comments:brain cancer Status:Active Mother Comments:afib, cutaneous non Hodkin's lymphoma Status:Active Paternal Grandfather Comments:CAD in 55-60's Status:Active paternal uncle Comments:CAD 70's Status:Active paternal uncle Comments:bone cancer CAD 60' s Status:Active Sister 1 Comments:healthy Status:Active Son 1 Status:Active Son 2 Status:Active Unknown Family Member Name Dates Details Daughter 1 Status:Active Father Comments:CAD 55-60 years old . HTN nonsmokers Status:Active Maternal Grandfather Comments:brain cancer Status:Active Mother Comments:afib, cutaneous non Hodkin's lymphoma Status:Active Paternal Grandfather Comments:CAD in 55-60's Status:Active paternal uncle Comments:bone cancer CAD 60' s Status:Active paternal uncle Comments:CAD 70's Status:Active Sister 1 Comments:healthy Status:Active Son 1 Status:Active Son 2 Status:Active Unknown Family Member Name Dates Details Daughter 1 Status:Active Father Comments:CAD 55-60 years old . HTN nonsmokers Status:Active Maternal Grandfather Comments:brain cancer Status:Active Mother Comments:afib, cutaneous non Hodkin's lymphoma Status:Active Paternal Grandfather Comments:CAD in 55-60's Status:Active paternal uncle Comments:bone cancer CAD 60' s Status:Active paternal uncle Comments:CAD 70's Status:Active Sister 1 Comments:healthy Status:Active Son 1 Status:Active Son 2 Status:Active Unknown Family Member Name Dates Details Daughter 1 Status:Active Father Comments:CAD 55-60 years old . HTN nonsmokers Status:Active Maternal Grandfather Comments:brain cancer Status:Active Mother Comments:afib, cutaneous non Hodkin's lymphoma Status:Active Paternal Grandfather Comments:CAD in 55-60's Status:Active paternal uncle Comments:bone cancer CAD 60' s Status:Active paternal uncle Comments:CAD 70's Status:Active Sister 1 Comments:healthy Status:Active Son 1 Status:Active Son 2 Status:Active Unknown Family Member Name Dates Details Daughter 1 Status:Active Father Comments:CAD 55-60 years old . HTN nonsmokers Status:Active Maternal Grandfather Comments:brain cancer Status:Active Mother Comments:afib, cutaneous non Hodkin's lymphoma Status:Active Paternal Grandfather Comments:CAD in 55-60's Status:Active paternal uncle Comments:bone cancer CAD 60' s Status:Active paternal uncle Comments:CAD 70's Status:Active Sister 1 Comments:healthy Status:Active Son 1 Status:Active Son 2 Status:Active Relationship Condition Age at Onset Recorded Date/T juan mother Malignant neoplasm Unknown grandmother Malignant neoplasm Unknown father Cardiac disease Unknown grandfather Cardiac disease Unknown Parkinson's disease Unknown Family Member Condition Father Mother Alive Family Member Condition Father Mother Alive Summary Purpose Advance Directives No Advanced Directives Records FoundNo Advanced Directives Records FoundNo Advanced Directives Records FoundNo Advanced Directives Records FoundNo Advanced Directives Records Found No Information Available No Information Available No Advanced Directives Records FoundNo Advanced Directives Records Found Reason for Referral Specialty Diagnoses / Procedures Referred By Contac t Referred To Contact Multispecialty Diagnoses Lumbar radiculopathy Cindy Taylor MD [address] [place] [address] Ramon Sullivan MD [address] [place] [address] Referral ID Status Reason Start Date Expiration Date V isits Requested Visits Authorized [id number] Authorized 09/12/2023 10/06/2024 1 1 Scheduling Instructions right L4-[address] Ramon [place] [facility] [place]ty Diagnoses / Procedures Referred By Contac t Referred To Contact Physical Therapy Diagnoses Lumbar radiculopathy Cindy Taylor MD [address] [place] [address] Referral ID Status Reason Start Date Expiration Date V isits Requested Visits Authorized [id number] New Request 09/12/2023 10/06/2024 1 1 Scheduling Instructions [facility] (Orthopedic, Sports Rehab) [address], [address], [place] [address] [facility] [place] (Burn, Neurological, Orthopedic, Pelvic Health, Sports Rehab) [address], [address], [place] [address] Outpatient Care [facility] (Orthopedic Rehab) [address], [address], [place] [address] [facility] [place] (Orthopedic, Pelvic Health, Sports) [address], [address], [place] [address] Outpatient [facility] [place] - Pelvic Health [address], [address], [place] [address] [facility] [place] (Orthopedic, Pelvic Health, Sports Rehab) [address], [address], [place] [address] Outpatient [facility] (Aquatic, Burn, Neurological, Orthopedic, Pelvic Health Rehab) [address], [facility] [address], [place] [address] [facility] [place] (Burn, Neurological, Orthopedic, Pelvic Health, Sports Rehab) [address], [address], [place] [address] [facility] (Neurological, Orthopedic Rehab) [address] [place] [address] Outpatient Rehabilitation [facility] (Aquatic, Burn, Neurological, Orthopedic, Pelvic Health Rehab) [address], [place] [address] Outpatient [facility] [place] (Burn, Neurological, Orthopedic Rehab) [address] [place] [address] Sports Medicine Rehabilitation [facility] (Orthopedic, Sports Rehab) [address], [place] [address] [facility], [facility]) [address] , [place] [address] Sports Medicine Rehabilitation [facility] (Orthopedic, Sports Rehab) [address], [place] [address] Sports Medicine Rehabilitation [facility] (Aquatic, Orthopedic, Pelvic Health, Sports Rehab) [address], [place] [address] Sports Medicine Rehabilitation [facility] (Orthopedic, Sports Rehab) [address] [place] [address] Sports Medicine Rehabilitation [facility] (Orthopedic, Sports Rehab) [address], [facility], [address], [place] [address] Chief Complaint and Reason for Visit Chief Complaint Admit Date XRAY February 20, 2024 12 :35pm BACK RX HERE REQUESTS DEQUAN March 7:00am POST OP May 06, 2024 12: 21pm Additional Source Comments (unrecognized sect ion and content) No Status Records FoundNo Status Records FoundNo Status Records FoundNo Status Records FoundNo Status Records FoundNo Status Records FoundNo Status Records Found INFORMATION SOURCE (unrecogn ized section and content) DATE CREATED AUTHOR 05/30/2022 [facility] DATE CREATED AUTHOR AUTHOR'S ORGANIZ ATION 08/17/2022 [facility] ([place]) DATE CREATED AUTHOR AUTHOR'S ORGANIZ ATION 10/28/2022 [facility] DATE CREATED AUTHOR AUTHOR'S ORGANIZ ATION 07/25/2023 [facility] DATE CREATED AUTHOR AUTHOR'S ORGANIZ ATION 09/21/2024 [facility] DATE CREATED AUTHOR AUTHOR'S ORGANIZ ATION 12/07/2024 [facility] DATE CREATED AUTHOR AUTHOR'S ORGANIZ ATION 12/16/2024 [facility] Patient Care team informatio n (unrecognized section and content) Manager Field Service Relationship Specialty Start Date End Date Pradeep Gillespie MD [address] [address] PCP - General Internal Medicine 10/27/22 Team Status: Active Member Role Status Dates Dr. Pradeep Gillespie MD Primary Care Provider Active Team Status: Inactive Member Role Status Dates Dr. Pradeep Gillespie MD Primary Care Provider Active Start: February 20, 2024 End: February 20, 2024 Dr. Gurpreet Bradley MD Attending Provider Active S tart: February 20, 2024 End: February 20, 2024 Team Status: Inactive Member Role Status Dates Dr. Pradeep Gillespie MD Primary Care Provider Active Start: March 26, 2024 End: March 26, 2024 Dr. Pradeep Gillespie MD Attending Provider Active Start: March 26, 2024 End: March 26, 2024 Dr. Pradeep Gillespie MD Referring Provider Active Start: March 26, 2024 End: March 26, 2024 Team Status: Inactive Member Role Status Dates Dr. Pradeep Gillespie MD Primary Care Provider Active Start: May 06, 2024 End: May 06, 2024 Dr. Moncho Bautista MD Attending Provider Active Start: May 06, 2024 End: May 06, 2024 Dr. Moncho Bautista MD Referring Provider Active Start: May 06, 2024 End: May 06, 2024 Source Comments (unrecognize d section and content) In the event this informatio n is protected by the Federal Confidentiality of Alcohol and Drug Abuse Patient Records regulations: The Federal rules restrict any use of the information to criminally investigate or prosecute any alcohol or drug abuse patient.[facility] Reason for Visit (unrecogniz ed section and content) Reason Comments Head Congestion Sore throat, cough x 5 days Reason Comments Pain 62 y.o. male c/o rig ht side low back pain with right leg radic for a few months, NKI. Tx: no PT. Previously seen: No. Occupation: Construction (mostly desk). Smoker: No Specialty Diagnoses / Procedures Referred By Contac t Referred To Contact Spine Diagnoses Degenerative disc disease, lumbar BonePradeep pitts MD [address] [facility] [address] [place] [address] [facility] [address] [place] [id number] Referral ID Status Reason Start Date Expiration Date V isits Requested Visits Authorized [id number] New Request 08/07/2023 08/31/2024 1 1 Reason Comments Follow-up Reason Comments Follow-up Reason Comments Nerve Injection L L4 tfesi Specialty Diagnoses / Procedures Referred By Contac t Referred To Contact Multispecialty Diagnoses Lumbar radiculopathy S/P lumbar fusion Herniated nucleus pulposus, L3-4 left Manjeet Bustillo, Brian Wang, KATHY [address] [place] [address] Phone: tel: fax: Flora Browning MD [address] [place] [address] Phone: tel: fax: Referral ID Status Reason Start Date Expiration Date Visits Re quested Visits Authorized [id number] Closed 12/10/2024 01/04/2026 1 1 Goals (unrecognized section and content) Goals may be documented in a n alternate section FOR RECORDS PERTAINING TO PATIENTS WHO ARE OR HAVE BEEN ENROLLED IN A CHEMICAL DEPENDENCY/SUBSTANCEABUSE PROGRAM, SOME INFORMATION MAY BE OMITTED. This clinical summary was aggregated from multiple sources. Caution should be exercised in using it in the provision of clinical care. This summary normalizes information from multiple sources, and as a consequence, information in this document may materially change the coding, format and clinical context of patient data. In addition, data may be omitted in some cases. CLINICAL DECISIONS SHOULD BE BASED ON THE PRIMARY CLINICAL RECORDS. [employer] provides no warranty or guarantee of the accuracy or completeness of information in this document.
[2025-01-30 07:56] LABS: Squamous Epithelial Cells - UA 0 SEEN /hpf (0-5)
[2025-01-30 08:00] LABS: Color, Urine Amber (Yellow); Glucose, Dipstick Normal (Normal); Ketone-Dipstick Negative (Negative); Leukocyte Esterase-Dipstick 25 /ul (Negative); Nitrite-Dipstick Positive (Negative); Occult Blood-Urine 250 /ul (Negative); Protein-Dipstick 100 mg/dl (Negative); Specific Gravity, Urine 1.025 (1.002-1.030); Urine Bilirubin Dipstick Negative (Negative)
[2025-01-30 08:02] LABS: Hematocrit 46.4 % (40-54); Hemoglobin 16.3 g/dL (13.0-16.5); Immature Granulocytes Count 0.020 X10^3/uL (0.0-0.0); Mean Corp Hgb Conc 35.1 g/dL (32-36); Mean Corpuscular Volume 85.9 fL (80-94); Mean Platelet Vol. 10.0 fl (6.2-12.0); NRBC Flagged by Analyzer 0 % (0-5); Platelet Count 220 K/mm3 (150-450); RBC Distribution Width CV 11.9 % (11.6-14.6); RBC Distribution Width SD 37.1 fl (35.1-43.9); Red Blood Count 5.40 M/mm3 (4.6-6.2); White Blood Count 5.5 K/mm3 (4.4-11.0)
[2025-01-30 08:12] LABS: Mucous, Urine 1+ /hpf (<or=2+); Red Blood Cells-Urine > 100 SEEN /hpf (0-5)
[2025-01-30 08:26] LABS: Anion Gap 14 (5-15); BUN 17 mg/dL (4-19); BUN/Creat Ratio 17.5 RATIO (10-20); Calcium,Total 9.7 mg/dL (7.6-11.0); Carbon Dioxide 22.8 mmol/L (21.0-32.0); Chloride 103 mmol/L (98-108); Estimated Creatinine Clearance 86.31 ml/min (50-250); Glucose 138 mg/dL (70-99); Potassium 3.3 mmol/L (3.3-5.1)
[2025-01-30 09:16] VITALS: BP 129/80; PULSE 56; RESP 20; O2SAT 97
[2025-01-30 09:25] VITALS: BP 129/80; PULSE 68; RESP 16; TEMP 36.7; O2SAT 99
== END 2025-01-30 09:36 | disposition home or self-care (01) ==
PROVIDERS: Emergency Provider Emergency Medicine; PCP Internal Medicine; Visit Provider Emergency Medicine
DX: R10.A0 Flank pain, unspecified side (principal); N39.0 Urinary tract infection, site not specified; E78.00 Pure hypercholesterolemia, unspecified; N20.2 Calculus of kidney with calculus of ureter; Z85.828 Personal history of other malignant neoplasm of skin
CPT/HCPCS: 74176; 80048; 81001; 85025; 96361; 96374; 96375; 99284; A4216; J2405

== ENCOUNTER → 2025-02-05 | Outpatient (CLI) | payer SELFPAY ==
--- NOTE | 2025-02-05 15:40 | RAD_ITS ---
PROCEDURE: CHEST PA AND LATERAL 02/05/2025 REASON FOR EXAM: PALPITATION TECHNIQUE: Procedure Code: RADCXR Modality: DX Procedure: CHEST PA AND LATERAL COMPARISON: 05/21/2020 FINDINGS: Hardware: None. Heart: The heart size is normal. Mediastinum: The mediastinal contour is unremarkable. Lungs: The lungs are clear. No pneumothorax or pleural effusion. Bones: The bones are unremarkable. RAD/Chest PA and Lateral IMPRESSION: NO ACUTE FINDINGS. [facility]
[2025-02-05 18:09] LABS: Hematocrit 41.3 % (40-54); Hemoglobin 14.3 g/dL (13.0-16.5); Immature Granulocytes Count 0.030 X10^3/uL (0.0-0.0); Mean Corp Hgb Conc 34.6 g/dL (32-36); Mean Corpuscular Volume 89.0 fL (80-94); Mean Platelet Vol. 9.5 fl (6.2-12.0); NRBC Flagged by Analyzer 0 % (0-5); Platelet Count 200 K/mm3 (150-450); RBC Distribution Width CV 12.0 % (11.6-14.6); RBC Distribution Width SD 38.4 fl (35.1-43.9); Red Blood Count 4.64 M/mm3 (4.6-6.2); White Blood Count 6.8 K/mm3 (4.4-11.0)
[2025-02-05 18:38] LABS: AST(SGOT) 15 U/L (<=37); Alanine Aminotransfer ALT/SGPT 13 U/L (<=46); Albumin, Serum 4.2 g/dL (3.4-4.8); Alkaline Phosphatase 56 U/L (40-129); Anion Gap 9 (5-15); BUN 20 mg/dL (4-19); BUN/Creat Ratio 21.6 RATIO (10-20); Calcium,Total 9.2 mg/dL (7.6-11.0); Carbon Dioxide 28.0 mmol/L (21.0-32.0); Chloride 105 mmol/L (98-108); Globulin 2.5 g/dL (2.2-4.2); Glucose 86 mg/dL (70-99); Potassium 3.8 mmol/L (3.3-5.1); Troponin T High Sensitivity 7 ng/L (<=22)
== END | disposition home or self-care (01) ==
LOC: MTLAB 15:38
PROVIDERS: PCP Internal Medicine; Referring Provider Internal Medicine; Visit Provider Internal Medicine
DX: R00.2 Palpitations (principal)
CPT/HCPCS: 36415; 71046; 80053; 84443; 84484; 85025